=== PATIENT | female | born 1950 | race Caucasian/White ===

== ENCOUNTER 2016-05-26 21:26 | Emergency (ER) | payer OTHER ==
[2016-05-26] MEDS ORDERED: SODIUM CHLORIDE 0.9% 1,000 ML IV STA (21:41)
[2016-05-26] MEDS ORDERED: diphenhydrAMINE 50 MG/ML 1 ML VIAL IVP STA (21:41)
[2016-05-26] MEDS ORDERED: METOCLOPRAMIDE 5 MG/ML 2 ML VIAL IVP STA (21:41)
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
[2016-05-26 21:51] LABS: Basophils % (A) 0 %; CH 31.5; Eosinophils # (A) 0.1 k/uL (0-0.7); Eosinophils % (A) 2 %; HCT 37.1 % (34.0-46.0); HDW 2.62; HGB 12.5 gm/dL (11.4-16.0); Luc # (Auto) 0.13; Luc % (Auto) 2; Lymphocytes # (A) 2.5 k/uL (1.0-4.8); Lymphocytes % (A) 36 %; MCH 30.5 pg (25.0-35.0); MCHC 33.7 g/dL (31.0-37.0); MCV 90.6 fL (80.0-100.0); Mean Platelet Volume 7.2; Monocytes # (A) 0.3 k/uL (0-1.0); Monocytes % (A) 4 %; Neutrophils # (A) 3.9 k/uL (1.3-7.7); Neutrophils % (A) 56 %; RBC 4.09 m/uL (3.80-5.40); RDW 12.3 % (11.5-15.5); WBC 6.9 k/uL (3.8-10.6); WBC (Perox) 6.85
--- NOTE | 2016-05-26 22:00 | XR ---
EXAMINATION TYPE: XR chest 2V DATE OF EXAM: 05/26/2016 9:55 PM COMPARISON: 09/26/2014 HISTORY: Nausea and vomiting TECHNIQUE: Frontal and lateral views of the chest are obtained. FINDINGS: There is no heart failure nor confluent pneumonic infiltrate. There are no hilar masses. C ostophrenic angles are clear. Bony thorax is intact. IMPRESSION: No active cardiopulmonary disease. No change.
[2016-05-26 22:02] LABS: ALT 42 U/L (9-52); AST 40 U/L (14-36); Alkaline Phosphatase 99 U/L (38-126); Amylase 34 U/L (30-110); Anion Gap 18 mmol/L; Blood Urea Nitrogen 12 mg/dL (7-17); Calcium 9.7 mg/dL (8.4-10.2); Carbon Dioxide 18 mmol/L (22-30); Chloride 99 mmol/L (98-107); Glucose 170 mg/dL (74-99); Non-African American GFR(MDRD) >60 (>60 ml/min/1.73 sqM); Potassium 4.6 mmol/L (3.5-5.1); Sodium 135 mmol/L (137-145); Total Bilirubin 0.6 mg/dL (0.2-1.3)
--- NOTE | 2016-05-26 22:04 | XR ---
EXAMINATION TYPE: XR KUB DATE OF EXAM: 05/26/2016 9:58 PM COMPARISON: NONE HISTORY: Abdominal pain TECHNIQUE: 2 views FINDINGS: Bowel gas pattern is normal. There is no sign of intestinal obstruction or pneumoperitoneum . Fecal pattern is normal. There is no sign of a mass. There are numerous phleboliths in the pelvis. There are no pathologic calcifications over the kidneys. IMPRESSION: Nonacute abdomen.
[2016-05-26] MEDS ORDERED: MORPHINE SULFATE 2 MG/ML SYRINGE IVP ONE (22:24)
[2016-05-26 22:44] LABS: Creatine Kinase 58 U/L (30-135)
[2016-05-26 22:57] LABS: Creatine Kinase MB 0.4 ng/mL (0.0-2.4); Troponin I <0.012 ng/mL (0.000-0.034)
[2016-05-26] MEDS ORDERED: MAGNESIUM OXIDE 400 MG TAB PO STA (23:38)
[2016-05-26 23:56] VITALS: BP 169/80; PULSE 72; RESP 16; TEMP 98.2
== END 2016-05-27 00:03 | disposition home or self-care (01) ==
LOC: EC 21:26
DX: R11.10 Vomiting, unspecified (principal); R10.9 Unspecified abdominal pain; E11.9 Type 2 diabetes mellitus without complications; I10 Essential (primary) hypertension; K21.9 Gastro-esophageal reflux disease without esophagitis; F41.9 Anxiety disorder, unspecified; F32.9 Major depressive disorder, single episode, unspecified; Z88.5 Allergy status to narcotic agent; Z87.891 Personal history of nicotine dependence; Z88.0 Allergy status to penicillin; Z91.040 Latex allergy status; Z79.899 Other long term (current) drug therapy; Z79.1 Long term (current) use of non-steroidal anti-inflammatories (NSAID); Z79.84 Long term (current) use of oral hypoglycemic drugs
CPT/HCPCS: 99285; 96374; 96375 ×2; 96361; 36415; 93005; 80053; 82150; 82550; 82553; 83690; 83735; 84484; 85025; 71020; 74000; J1200; J2765; J2270

== ENCOUNTER 2016-10-08 00:49 | Emergency (ER) | payer OTHER ==
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
[2016-10-08 09:05] VITALS: BP 127/69; PULSE 86; RESP 16; TEMP 97.1
== END 2016-10-08 09:32 | disposition home or self-care (01) ==
LOC: EC 00:49
DX: F10.129 Alcohol abuse with intoxication, unspecified (principal); F43.21 Adjustment disorder with depressed mood; E11.9 Type 2 diabetes mellitus without complications; I10 Essential (primary) hypertension; K21.9 Gastro-esophageal reflux disease without esophagitis; M19.90 Unspecified osteoarthritis, unspecified site; F41.9 Anxiety disorder, unspecified; Z87.891 Personal history of nicotine dependence; Z88.5 Allergy status to narcotic agent; Z91.040 Latex allergy status; Z88.0 Allergy status to penicillin; Z79.1 Long term (current) use of non-steroidal anti-inflammatories (NSAID); Z79.84 Long term (current) use of oral hypoglycemic drugs; Z79.899 Other long term (current) drug therapy
CPT/HCPCS: 80306; 82075; 99285

== ENCOUNTER 2017-02-15 05:48 | Day surgery (SDC) | payer OTHER ==
[2017-02-13 11:59] VITALS: BMI 43.9
[~2017-02-15 05:48] MED LIST: CLINDAMYCIN 900 MG in DEXTROSE 5% IN WATER 50 ML IVPB ONE
[2017-02-15] MEDS ORDERED: MIDAZOLAM 2 MG/2 ML VIAL IV PRN (06:16)
[2017-02-15] MEDS ORDERED: DEXAMETHASONE SOD PHOSPHATE 10 MG/ML 1 ML VIAL IV ONE (06:16)
[2017-02-15] MEDS ORDERED: LIDOCAINE 1% 20 ML VIAL (10MG/ML) FOR IV START INTRADERMA PRN (06:16)
[2017-02-15] MEDS ORDERED: HYDROmorphone 1 MG/ML 1 ML SYRINGE IVP PRN (06:16)
[2017-02-15] MEDS ORDERED: ONDANSETRON 4 MG/2 ML VIAL IVP ONE (06:16)
[2017-02-15] MEDS ORDERED: SCOPOLAMINE 1.5MG/72HR PATCH TRANSDERM ONE (06:16)
[2017-02-15 06:59] LABS: Glucose,Whole Blood 149 mg/dL (75-99)
[2017-02-15] MEDS: LACTATED RINGERS 1,000 ML IV SCH ×2 (07:02→20:17)
[2017-02-15] MEDS ORDERED: EPINEPHrine 1 MG/ML 1 ML AMP SQ ONE (07:48)
[2017-02-15] MEDS ORDERED: ONDANSETRON ODT 4 MG TAB PO PRN (07:56)
--- NOTE | 2017-02-15 07:58 | P.HPOB ---
History of Present Illness H&P Date: 02/15/17 Chief Complaint: Rectocele Tena is a 66 female who has a grade 2-3 rectocele requiring repair. Risks/ benefits/alternatives to this procedure were discussed with patient in detail and all questions were answered for her prior to proceeding to the operating room. She does have a small cystocele we'll fully evaluate this in the operating room is possible she will have a cystocele repair as well but if it is minimal then we will not plan to do cystocele repair. On physical exam vital signs are currently stable and afebrile. Heart regular, lungs clear, extremities without pain. Osteopathic exams unremarkable. Abdomen soft positive bowel sounds are noted. Assessment rectocele. Plan posterior repair possible anterior repair will have Dr. Ravi see her in the hospital control her medical issues as she has multiple medical problems including diabetes and hypertension./Benefits/alternatives to this were discussed with patient in detail and all questions are answered for her prior to proceeding to the operating room. Past Medical History Past Medical History: Asthma, Chest Pain / Angina, Diabetes Mellitus, GERD/ Reflux, Hypertension, Osteoarthritis (OA), Rheumatoid Arthritis (RA) Additional Past Medical History / Comment(s): DDD, HEMORRHOIDS,HIATAL HERNIA, IBS, POOR CIRCULATION, RLS, hx migraines, ulcer, hiatal hernia, UTI's History of Any Multi-Drug Resistant Organisms: ESBL Date of last positivie culture/infection: 09/12/15 MDRO Source:: urine e. coli Past Surgical History: Hysterectomy, Orthopedic Surgery, Tubal Ligation Additional Past Surgical History / Comment(s): surgery rt knee cap Past Anesthesia/Blood Transfusion Reactions: Motion Sickness Additional Past Anesthesia/Blood Transfusion Reaction / Comment(s): CLAUSTROPHOBIA Smoking Status: Former smoker - Past Family History Father Family Medical History: Diabetes Mellitus Mother Family Medical History: GERD/Reflux Additional Family Medical History / Comment(s): FEMALE CANCER Sister(s) Family Medical History: Cancer Medications and Allergies Home Medications Medication Instructions Recorded Confirmed Type glipiZIDE [Glucotrol XL] 5 mg PO DAILY 09/21/14 02/15/17 History Oxybutynin Chloride [Ditropan] 5 mg PO BID 09/23/14 02/15/17 History diphenhydrAMINE [Benadryl] 25 mg PO HS PRN 09/23/14 02/15/17 History metFORMIN HCL 1,000 mg PO BID 09/23/14 02/15/17 History ALPRAZolam [Xanax] 1 mg PO TID 02/13/17 02/15/17 History Cetirizine HCl [Zyrtec] 10 mg PO DAILY 02/13/17 02/15/17 History FLUoxetine HCL [PROzac] 20 mg PO HS 02/13/17 02/15/17 History Famotidine [Pepcid] 40 mg PO HS 02/13/17 02/15/17 History Hydrocodone/Acetaminophen [[place] 1 tab PO Q6HR PRN 02/13/17 02/15/17 History 5-325] Losartan Potassium 50 mg PO QAM 02/13/17 02/15/17 History Multivitamins, Thera [Multivitamin 1 tab PO DAILY 02/13/17 02/15/17 History (formulary)] Ondansetron Odt [Zofran ODT] 4 mg PO QID PRN 02/13/17 02/15/17 History Pantoprazole [Protonix] 40 mg PO QAM 02/13/17 02/15/17 History Sucralfate [Carafate] 1 gm PO HS 02/13/17 02/15/17 History Allergies Allergy/AdvReac Type Severity Reaction Status Date / Time codeine Allergy Nausea & Verified 02/13/17 11:41 Vomiting Iodinated Contrast- Oral and Allergy Unknown Verified 02/15/17 06:26 IV Dye latex Allergy Rash/Hives Verified 02/13/17 11:41 Penicillins Allergy Anaphylaxis Verified 02/13/17 11:41 Exam Osteopathic Statement: *. No significant issues noted on an osteopathic structural exam other than those noted in the History and Physical/Consult. - Vital Signs Vital signs: Vital Signs Temp Pulse Resp BP Pulse Ox 02/15/17 06:31 98.6 F 85 16 136/93 96 Results Abnormal Lab Results - Last 24 Hours (Table) 02/15/17 Range/Units 06:47 POC Glucose (mg/dL) 149 H (75-99) mg/dL
[2017-02-15] MEDS ORDERED: PHENYLEPHRINE-0.9% NACL SYG 1 MG/10 ML SYRINGE ONE (08:02)
[2017-02-15] MEDS ORDERED: HYDROmorphone (PF) 1 MG/ML ONE (08:02)
[2017-02-15] MEDS ORDERED: LIDOCAINE 1% INJ 10MG/ML (20 ML MDV) ONE (08:02)
[2017-02-15] MEDS ORDERED: MIDAZOLAM 2 MG/2 ML VIAL ONE (08:02)
[2017-02-15] MEDS ORDERED: SUCCINYLCHOLINE CHLORIDE 100 MG/5 ML SYR IV ONE (08:02)
[2017-02-15] MEDS ORDERED: fentaNYL (PF) 50 MCG/ML 2 ML AMP ONE (08:02)
[2017-02-15] MEDS ORDERED: PROPOFOL 10 MG/ML 20 ML VIAL IV ONE (08:02)
[2017-02-15] MEDS ORDERED: BACITRACIN 500 UNIT/GM OINT 28.4 GM TUBE TOPICAL ONE (08:49)
[2017-02-15] MEDS ORDERED: SIMETHICONE 80 MG CHEWABLE PO PRN (08:51)
[2017-02-15] MEDS ORDERED: KETOROLAC 30 MG/ML 1 ML VIAL IVP PRN (08:51)
[2017-02-15] MEDS ORDERED: LACTATED RINGERS 1,000 ML IV ONE (08:55)
--- NOTE | 2017-02-15 09:00 | P.OP ---
Date of Procedure: 02/15/17 Preoperative Diagnosis: Rectocele lichen sclerosis Postoperative Diagnosis: Same Procedure(s) Performed: Posterior repair with vulvar biopsy at 11:00 Anesthesia: RAJAN Surgeon: Lukas Sierra Claims Analyst #1: Tami Antonio Estimated Blood Loss (ml): 10 IV fluids (ml): 500 Urine output (ml): 200 Pathology: other (Biopsies of vulva) Condition: stable Disposition: observation Operative Findings: Grade 3 rectocele mild grade 1 cystocele but she does have significant leaking therefore she would need urology consultation for a repair to be affected in this area. She did not want to do this prior to the surgery. Description of Procedure: Was taken to the operating suite where a general anesthetic was found be adequate. She was prepped and draped and placed in the dorsal lithotomy position. Initially a speculum was inserted upside down in the vagina so that the rectocele could be identified. 2 Allis clamps and use grasped posterior fourchette of the vagina and a dilute epinephrine solution was injected through this area and up into the rectocele to help maintain hemostasis. This was also done to create a. Once this was accomplished knife was used to excise the posterior part of the vagina and incised upwards into the rectocele. Metzenbaum scissors were then used to undermine the tissues of the rectocele incising it up to the apex of the rectocele. Allis clamps were then used to delineate the boundaries of the rectocele. Once this was accomplished blunt and sharp dissection of the rectocele as far laterally as was possible was then made. Once this was accomplished approximately 10 Jill plication sutures were placed to bring the rectocele tissues together and close off the space. Once repair was completed excess vaginal mucosa was excised and 0 Vicryl suture was used to close the incision in a running locking fashion. Once this was completed there was an area of lichen sclerosis change at 11:00 which was absent using a [place] punch biopsy following injection of local anesthetic. One 4-0 Vicryl suture was placed to close this incision. Vagina was then packed with iodoform gauze and Perera catheter was placed. Patient tolerated surgery very well sponge, lap, needle counts were all correct 2. Patient was taken to the recovery room in stable and satisfactory condition.
[2017-02-15 12:21] LABS: Glucose,Whole Blood 224 mg/dL (75-99)
[2017-02-15] MEDS: PANTOPRAZOLE 40 MG TABLET PO SCH (13:13)
[2017-02-15] MEDS: LOSARTAN 50 MG TAB PO SCH (13:13)
[2017-02-15] MEDS: LORATADINE 10 MG TAB PO SCH (13:24)
[2017-02-15] MEDS: SENNOSIDES-DOCUSATE SODIUM 1 EACH TAB PO SCH ×2 (13:24→20:16)
[2017-02-15] MEDS: OXYBUTYNIN CHLORIDE 5 MG TAB PO SCH ×2 (13:24→20:16)
[2017-02-15] MEDS: metFORMIN 500 MG TAB PO SCH ×2 (13:24→16:57)
[2017-02-15] MEDS: ALPRAZolam 0.5 MG TAB PO SCH ×2 (16:26→22:24)
[2017-02-15 17:21] LABS: Glucose,Whole Blood 245 mg/dL (75-99)
[2017-02-15] MEDS: HYDROcodone/APAP 5-325MG 1 EACH TAB PO PRN (20:13)
[2017-02-15] MEDS ORDERED: FAMOTIDINE 20 MG TAB PO SCH (21:00)
[2017-02-15] MEDS ORDERED: FLUoxetine HCL 20 MG CAP PO SCH (21:00)
[2017-02-15] MEDS ORDERED: SUCRALFATE 1 GM TAB PO SCH (21:00)
[2017-02-15 21:08] LABS: Glucose,Whole Blood 276 mg/dL (75-99)
[2017-02-16] MEDS ORDERED: diphenhydrAMINE 25 MG CAP PO PRN (07:47)
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
[2017-02-16 08:53] LABS: Glucose,Whole Blood 280 mg/dL (75-99)
[2017-02-16] MEDS: metFORMIN 500 MG TAB PO SCH ×2 (08:53→17:40)
[2017-02-16] MEDS: HYDROcodone/APAP 5-325MG 1 EACH TAB PO PRN ×2 (09:07→14:51)
[2017-02-16] MEDS: OXYBUTYNIN CHLORIDE 5 MG TAB PO SCH (09:55)
[2017-02-16] MEDS: LOSARTAN 50 MG TAB PO SCH (09:55)
[2017-02-16] MEDS: LORATADINE 10 MG TAB PO SCH (09:55)
[2017-02-16] MEDS: ALPRAZolam 0.5 MG TAB PO SCH ×2 (09:59→16:35)
[2017-02-16] MEDS: PANTOPRAZOLE 40 MG TABLET PO SCH (10:00)
[2017-02-16] MEDS: SENNOSIDES-DOCUSATE SODIUM 1 EACH TAB PO SCH (10:00)
[2017-02-16] MEDS ORDERED: MULTIVITAMINS, THERA 1 EACH TAB PO SCH (12:00)
[2017-02-16 13:46] LABS: Glucose,Whole Blood 202 mg/dL (75-99)
[2017-02-16] MEDS: INSULIN ASPART 100 UNIT/ML 1 ML 10 ML VIAL SQ SCH ×2 (13:52→17:46)
[2017-02-16] MEDS ORDERED: IPRATROPIUM-ALBUTEROL 3 ML NEB INHALATION PRN (15:50)
--- NOTE | 2017-02-16 16:59 | P.DS ---
Providers Expected date of discharge: 02/16/17 Attending physician: Lukas Sierra Consults: 02/15/17 08:51 Consult Physician Routine Consulting Provider: Quincy Ravi Consult Reason/Comments: medical management Do you want consulting provider notified?: Yes Primary care physician: Quincy Ravi Hospital Course: She recently is doing very well postop day 1. I've evaluated her this morning and at noon and now finally this evening we'll plan to discharge her home this evening. She has some tiredness but she feels overall well she is using incentive spirometry and that seems to be helping she also has inhalers for her asthma. Blood sugars have been slightly elevated but that of been managed by the primary care provider who discomfort with her sugar levels and she will contact him should there be any ryes in those levels. Discharge instructions were thoroughly reviewed with the patient all questions are answered for her at this time. Her heart is regular her lungs are essentially clear with mild bibasilar crackles but she is breathing well and oxygenating well. Extremities are without pain. Abdomen soft nontender. Other than slight vaginal discharge she voices no complaints following surgery. Assessment postop day 1. Plan discharged home follow up with me in approximately 1-2 weeks. Patient Condition at Discharge: Good Plan - Discharge Summary Discharge Rx Participant: No New Discharge Prescriptions: No Action glipiZIDE [Glucotrol XL] 5 mg PO DAILY diphenhydrAMINE [Benadryl] 25 mg PO HS PRN PRN Reason: ALLERGIES Oxybutynin Chloride [Ditropan] 5 mg PO BID metFORMIN HCL 1,000 mg PO BID ALPRAZolam [Xanax] 1 mg PO TID Cetirizine HCl [Zyrtec] 10 mg PO DAILY Famotidine [Pepcid] 40 mg PO HS FLUoxetine HCL [PROzac] 20 mg PO HS Hydrocodone/Acetaminophen [[place] 5-325] 1 tab PO Q6HR PRN PRN Reason: Pain Losartan Potassium 50 mg PO QAM Pantoprazole [Protonix] 40 mg PO QAM Sucralfate [Carafate] 1 gm PO HS Ondansetron Odt [Zofran ODT] 4 mg PO QID PRN PRN Reason: Nausea Multivitamins, Thera [Multivitamin (formulary)] 1 tab PO DAILY Discharge Medication List glipiZIDE [Glucotrol XL] 5 mg PO DAILY 09/21/14 [History] Oxybutynin Chloride [Ditropan] 5 mg PO BID 09/23/14 [History] diphenhydrAMINE [Benadryl] 25 mg PO HS PRN 09/23/14 [History] metFORMIN HCL 1,000 mg PO BID 09/23/14 [History] ALPRAZolam [Xanax] 1 mg PO TID 02/13/17 [History] Cetirizine HCl [Zyrtec] 10 mg PO DAILY 02/13/17 [History] FLUoxetine HCL [PROzac] 20 mg PO HS 02/13/17 [History] Famotidine [Pepcid] 40 mg PO HS 02/13/17 [History] Hydrocodone/Acetaminophen [[place] 5-325] 1 tab PO Q6HR PRN 02/13/17 [History] Losartan Potassium 50 mg PO QAM 02/13/17 [History] Multivitamins, Thera [Multivitamin (formulary)] 1 tab PO DAILY 02/13/17 [History ] Ondansetron Odt [Zofran ODT] 4 mg PO QID PRN 02/13/17 [History] Pantoprazole [Protonix] 40 mg PO QAM 02/13/17 [History] Sucralfate [Carafate] 1 gm PO HS 02/13/17 [History] Follow up Appointment(s)/Referral(s): Lukas Sierra DO [Doctor of Osteopathic Medicine] - 03/05/17 9:00 am (You have an appointment with DR Sierra on 2016 at 9:00 am.) Patient Instructions/Handouts: How to Use an Incentive Spirometer (GEN), Non- pharmacological Pain Management Therapies for Adults (GEN), Pain Management After Surgery (GEN), Posterior Vaginal Repair (DC) Activity/Diet/Wound Care/Special Instructions: Good handwashing. Activity as tolerated, rest as needed. Drink plenty of fluids. No housework, no driving, no stooping or bending, no heavy lifting, not tubs or hot tubs. Nothing in the vagina. May shower. Call Dr Sierra if you develop a fever, increase in pain, bleeding from your vagina, difficulty in urinating or stooling, or if you have any other questions or concerns. Take you pain medication as prescribed. Be careful of falls while on pain medications. Discharge Disposition: HOME SELF-CARE
[2017-02-16 17:17] VITALS: BP 117/65; PULSE 65; RESP 16; TEMP 97.6
[2017-02-16 17:30] LABS: Glucose,Whole Blood 133 mg/dL (75-99)
== END 2017-02-16 18:22 | disposition home or self-care (01) ==
LOC: OR 05:48 → 6PED 09:04 → OR 02-16 18:22
PROVIDERS: ATTEND Obstetrics & Gynecology
DX: N81.6 Rectocele (principal); N90.4 Leukoplakia of vulva; L90.0 Lichen sclerosus et atrophicus; N81.10 Cystocele, unspecified; R53.83 Other fatigue; J45.909 Unspecified asthma, uncomplicated; E11.65 Type 2 diabetes mellitus with hyperglycemia; E11.51 Type 2 diabetes mellitus with diabetic peripheral angiopathy without gangrene; K21.9 Gastro-esophageal reflux disease without esophagitis; I10 Essential (primary) hypertension; M19.90 Unspecified osteoarthritis, unspecified site; M06.9 Rheumatoid arthritis, unspecified; K58.9 Irritable bowel syndrome, unspecified; Z98.51 Tubal ligation status; F41.9 Anxiety disorder, unspecified; F32.9 Major depressive disorder, single episode, unspecified; Z87.891 Personal history of nicotine dependence; Z88.1 Allergy status to other antibiotic agents; Z88.5 Allergy status to narcotic agent; Z88.0 Allergy status to penicillin; Z88.8 Allergy status to other drugs, medicaments and biological substances; Z91.041 Radiographic dye allergy status; Z91.040 Latex allergy status; Z79.84 Long term (current) use of oral hypoglycemic drugs; Z79.899 Other long term (current) drug therapy
CPT/HCPCS: 94640; 88305; 88302; 83036; 45560; 56605; J2250; J0171; J1100; J2405; J2001; J3010; J1885; J1170; J2370; J0330; J2704

== ENCOUNTER 2018-02-01 16:35 | Inpatient (IN) | payer MEDICARE, OTHER ==
--- NOTE | 2018-02-01 16:53 | ED ---
General Adult HPI - General Chief complaint: Altered Mental Status Stated complaint: Altered mental status Time Seen by Provider: 02/01/18 16:41 Source: patient, family, EMS, RN notes reviewed, old records reviewed Mode of arrival: EMS Limitations: no limitations - History of Present Illness Initial comments: 67-year-old female presents for evaluation of altered mental status and lethargy. Patient had recent hospital admission for pneumonia at an outside hospital. She was discharged on oral antibiotics. States that her respiratory symptoms had significantly improved. She was noted to be confused prior to arrival. This has resolved at the time my evaluation, she is alert and oriented 3. Denies significant pain complaints. Denies headache. She states she has been tired since her discharge with generalized weakness. She has been compliant with antibiotics. Denies fever. Denies chest pain. Denies worsening dyspnea. Denies abdominal pain nausea vomiting. - Related Data Home Medications Medication Instructions Recorded Confirmed glipiZIDE [Glucotrol XL] 5 mg PO DAILY 09/21/14 02/01/18 Oxybutynin Chloride [Ditropan] 5 mg PO BID 09/23/14 02/01/18 metFORMIN HCL 1,000 mg PO BID 09/23/14 02/01/18 ALPRAZolam [Xanax] 1 mg PO TID PRN 02/13/17 02/01/18 Cetirizine HCl [Zyrtec] 10 mg PO DAILY 02/13/17 02/01/18 FLUoxetine HCL [PROzac] 20 mg PO HS 02/13/17 02/01/18 Hydrocodone/Acetaminophen [[place] 1 tab PO Q6HR PRN 02/13/17 02/01/18 5-325] Losartan Potassium 50 mg PO DAILY 02/13/17 02/01/18 Pantoprazole [Protonix] 40 mg PO DAILY 02/13/17 02/01/18 Sucralfate [Carafate] 1 gm PO HS 02/13/17 02/01/18 Cefuroxime Axetil [Ceftin] 500 mg PO BID 02/01/18 02/01/18 Diltiazem HCl [Cartia Xt] 180 mg PO DAILY 02/01/18 02/01/18 Allergies Allergy/AdvReac Type Severity Reaction Status Date / Time codeine Allergy Nausea & Verified 02/01/18 16:57 Vomiting Iodinated Contrast- Oral and Allergy Unknown Verified 02/01/18 16:57 IV Dye latex Allergy Rash/Hives Verified 02/01/18 16:57 Penicillins Allergy Anaphylaxis Verified 02/01/18 16:57 Review of Systems ROS Statement: Those systems with pertinent positive or pertinent negative responses have been documented in the HPI. ROS Other: All systems not noted in ROS Statement are negative. Past Medical History Past Medical History: Asthma, Diabetes Mellitus, GERD/Reflux, Hypertension, Osteoarthritis (OA), Rheumatoid Arthritis (RA) Additional Past Medical History / Comment(s): DDD, HEMORRHOIDS,HIATAL HERNIA, IBS, POOR CIRCULATION, RLS History of Any Multi-Drug Resistant Organisms: ESBL Date of last positivie culture/infection: 09/12/15 MDRO Source:: urine e. coli Past Surgical History: Hysterectomy, Orthopedic Surgery, Tubal Ligation Additional Past Surgical History / Comment(s): RT KNEE CAP SX Past Anesthesia/Blood Transfusion Reactions: No Reported Reaction Additional Past Anesthesia/Blood Transfusion Reaction / Comment(s): CLAUSTERPHOBIA Past Psychological History: Anxiety, Depression Smoking Status: Never smoker Past Alcohol Use History: None Reported Past Drug Use History: None Reported - Past Family History Father Family Medical History: Diabetes Mellitus Mother Family Medical History: GERD/Reflux Additional Family Medical History / Comment(s): FEMALE CANCER Sister(s) Family Medical History: Cancer General Exam Limitations: no limitations General appearance: lethargic Head exam: Present: atraumatic, normocephalic Eye exam: Present: normal appearance, PERRL, EOMI ENT exam: Present: mucous membranes dry Neck exam: Present: normal inspection. Absent: tenderness, meningismus Respiratory exam: Present: decreased breath sounds. Absent: respiratory distress Cardiovascular Exam: Present: regular rate, normal rhythm GI/Abdominal exam: Present: soft. Absent: distended, tenderness Extremities exam: Present: normal inspection, full ROM Neurological exam: Present: alert, oriented X3. Absent: motor sensory deficit Psychiatric exam: Present: normal affect, normal mood Skin exam: Present: warm, dry, intact. Absent: cyanosis, diaphoretic Course Vital Signs 02/01/18 02/01/18 02/01/18 16:39 16:44 17:00 Temperature 97.9 F Pulse Rate 70 69 66 Respiratory 14 18 19 Rate Blood Pressure 134/86 134/86 O2 Sat by Pulse 92 L 92 L 95 Oximetry 10/26/18 10/26/18 10/26/18 17:30 18:00 18:30 Temperature Pulse Rate 68 67 70 Respiratory 10 L 23 18 Rate Blood Pressure 140/86 134/86 131/79 O2 Sat by Pulse 96 96 95 Oximetry 02/01/18 02/01/18 19:00 19:30 Temperature Pulse Rate 75 75 Respiratory 18 20 Rate Blood Pressure 138/94 155/100 O2 Sat by Pulse 95 Oximetry EKG Findings - EKG Comments: EKG Findings:: EKG: Normal sinus rhythm, ventricular rate 68, PA interval 140, QRS duration 82, QTC 455, no ST segment elevation or depression Medical Decision Making - Medical Decision Making 67-year-old female presenting with episode of confusion. Patient is alert and oriented at the time my evaluation, nonfocal neurologic exam. Workup in the emergency department reveals head CT which is negative for intracranial hemorrhage or mass effect, normal CBC, CMP does show elevated glucose and pseudohyponatremia 134, magnesium 1.5 which is replaced. Chest x-ray does show persistent right lower lobe pneumonia. Given the patient's persistent symptoms , she will be kept for intubated IV antibiotics and reevaluation. Diagnosis: Community acquired pneumonia - Lab Data Result diagrams: 02/01/18 17:13 02/01/18 17:13 Lab Results 02/01/18 02/01/18 02/01/18 Range/Units 17:13 17:13 17:13 WBC 8.9 (3.8-10.6) k/uL RBC 4.14 (3.80-5.40) m/uL Hgb 11.9 (11.4-16.0) gm/dL Hct 35.9 (34.0-46.0) % MCV 86.8 (80.0-100.0) fL MCH 28.7 (25.0-35.0) pg MCHC 33.0 (31.0-37.0) g/dL RDW 13.7 (11.5-15.5) % Plt Count 420 (150-450) k/uL Neutrophils % 59 % Lymphocytes % 35 % Monocytes % 4 % Eosinophils % 1 % Basophils % 0 % Neutrophils # 5.3 (1.3-7.7) k/uL Lymphocytes # 3.1 (1.0-4.8) k/uL Monocytes # 0.3 (0-1.0) k/uL Eosinophils # 0.1 (0-0.7) k/uL Basophils # 0.0 (0-0.2) k/uL PT (9.0-12.0) sec INR (<1.2) APTT (22.0-30.0) sec Sodium 134 L (137-145) mmol/L Potassium 3.8 (3.5-5.1) mmol/L Chloride 100 (98-107) mmol/L Carbon Dioxide 27 (22-30) mmol/L Anion Gap 7 mmol/L BUN 14 (7-17) mg/dL Creatinine 0.60 (0.52-1.04) mg/dL Est GFR (CKD-EPI)AfAm >90 (>60 ml/min/1.73 sqM) Est GFR (CKD-EPI)NonAf >90 (>60 ml/min/1.73 sqM) Glucose 287 H (74-99) mg/dL Plasma Lactic Acid Oziel (0.7-2.0) mmol/L Calcium 8.8 (8.4-10.2) mg/dL Magnesium 1.5 L (1.6-2.3) mg/dL Total Bilirubin 0.3 (0.2-1.3) mg/dL AST 66 H (14-36) U/L ALT 75 H (9-52) U/L Alkaline Phosphatase 83 (38-126) U/L Total Creatine Kinase 30 (30-135) U/L CK-MB (CK-2) 0.6 (0.0-2.4) ng/mL CK-MB (CK-2) Rel Index 2.0 Troponin I <0.012 (0.000-0.034) ng/mL Total Protein 6.0 L (6.3-8.2) g/dL Albumin 2.9 L (3.5-5.0) g/dL Urine Color Urine Appearance (Clear) Urine pH (5.0-8.0) Ur Specific [place] (1.001-1.035) Urine Protein (Negative) Urine Glucose (UA) (Negative) Urine Ketones (Negative) Urine Blood (Negative) Urine Nitrite (Negative) Urine Bilirubin (Negative) Urine Urobilinogen (<2.0) mg/dL Ur Leukocyte Esterase (Negative) Urine RBC (0-5) /hpf Urine WBC (0-5) /hpf Ur Squamous Epith Cells (0-4) /hpf Urine Bacteria (None) /hpf Hyaline Casts (0-2) /lpf Urine Mucus (None) /hpf 02/01/18 02/01/18 02/01/18 Range/Units 17:13 17:13 19:46 WBC (3.8-10.6) k/uL RBC (3.80-5.40) m/uL Hgb (11.4-16.0) gm/dL Hct (34.0-46.0) % MCV (80.0-100.0) fL MCH (25.0-35.0) pg MCHC (31.0-37.0) g/dL RDW (11.5-15.5) % Plt Count (150-450) k/uL Neutrophils % % Lymphocytes % % Monocytes % % Eosinophils % % Basophils % % Neutrophils # (1.3-7.7) k/uL Lymphocytes # (1.0-4.8) k/uL Monocytes # (0-1.0) k/uL Eosinophils # (0-0.7) k/uL Basophils # (0-0.2) k/uL PT 10.6 (9.0-12.0) sec INR 1.1 (<1.2) APTT 22.8 (22.0-30.0) sec Sodium (137-145) mmol/L Potassium (3.5-5.1) mmol/L Chloride (98-107) mmol/L Carbon Dioxide (22-30) mmol/L Anion Gap mmol/L BUN (7-17) mg/dL Creatinine (0.52-1.04) mg/dL Est GFR (CKD-EPI)AfAm (>60 ml/min/1.73 sqM) Est GFR (CKD-EPI)NonAf (>60 ml/min/1.73 sqM) Glucose (74-99) mg/dL Plasma Lactic Acid Oziel 2.0 (0.7-2.0) mmol/L Calcium (8.4-10.2) mg/dL Magnesium (1.6-2.3) mg/dL Total Bilirubin (0.2-1.3) mg/dL AST (14-36) U/L ALT (9-52) U/L Alkaline Phosphatase (38-126) U/L Total Creatine Kinase (30-135) U/L CK-MB (CK-2) (0.0-2.4) ng/mL CK-MB (CK-2) Rel Index Troponin I (0.000-0.034) ng/mL Total Protein (6.3-8.2) g/dL Albumin (3.5-5.0) g/dL Urine Color Yellow Urine Appearance Clear (Clear) Urine pH 5.5 (5.0-8.0) Ur Specific [place] 1.012 (1.001-1.035) Urine Protein Negative (Negative) Urine Glucose (UA) 2+ H (Negative) Urine Ketones Negative (Negative) Urine Blood Negative (Negative) Urine Nitrite Negative (Negative) Urine Bilirubin Negative (Negative) Urine Urobilinogen <2.0 (<2.0) mg/dL Ur Leukocyte Esterase Moderate H (Negative) Urine RBC 2 (0-5) /hpf Urine WBC 3 (0-5) /hpf Ur Squamous Epith Cells 1 (0-4) /hpf Urine Bacteria Rare H (None) /hpf Hyaline Casts 1 (0-2) /lpf Urine Mucus Rare H (None) /hpf Disposition Clinical Impression: Hypomagnesemia, Community acquired pneumonia Disposition: ADMITTED IP TO THIS [facility] Condition: Stable Is patient prescribed a controlled substance at d/c from ED?: No Referrals: Quincy Ravi MD [Primary Care Provider] - 1-2 days Decision to Admit Reason: Admit from EC Decision Date: 02/01/18 Decision Time: 20:14
[2018-02-01 17:46] LABS: Basophils % (A) 0 %; Eosinophils # (A) 0.1 k/uL (0-0.7); Eosinophils % (A) 1 %; HCT 35.9 % (34.0-46.0); HGB 11.9 gm/dL (11.4-16.0); Lymphocytes # (A) 3.1 k/uL (1.0-4.8); Lymphocytes % (A) 35 %; MCH 28.7 pg (25.0-35.0); MCV 86.8 fL (80.0-100.0); Mean Platelet Volume 6.6; Monocytes # (A) 0.3 k/uL (0-1.0); Monocytes % (A) 4 %; Neutrophils # (A) 5.3 k/uL (1.3-7.7); Neutrophils % (A) 59 %; Platelet Count 420 k/uL (150-450); RBC 4.14 m/uL (3.80-5.40); RDW 13.7 % (11.5-15.5); WBC 8.9 k/uL (3.8-10.6)
[2018-02-01 17:52] LABS: INR 1.1 (<1.2); Partial Thromboplastin Time 22.8 sec (22.0-30.0); Prothrombin Time 10.6 sec (9.0-12.0)
[2018-02-01 17:55] LABS: ALT 75 U/L (9-52); AST 66 U/L (14-36); Albumin 2.9 g/dL (3.5-5.0); Alkaline Phosphatase 83 U/L (38-126); Anion Gap 7 mmol/L; Blood Urea Nitrogen 14 mg/dL (7-17); Calcium 8.8 mg/dL (8.4-10.2); Carbon Dioxide 27 mmol/L (22-30); Chloride 100 mmol/L (98-107); Glucose 287 mg/dL (74-99); Magnesium 1.5 mg/dL (1.6-2.3); Potassium 3.8 mmol/L (3.5-5.1); Sodium 134 mmol/L (137-145); Total Bilirubin 0.3 mg/dL (0.2-1.3)
[2018-02-01 18:14] LABS: Creatine Kinase 30 U/L (30-135)
[2018-02-01 18:27] LABS: Creatine Kinase MB 0.6 ng/mL (0.0-2.4); Troponin I <0.012 ng/mL (0.000-0.034)
--- NOTE | 2018-02-01 18:39 | XR ---
EXAMINATION TYPE: XR chest 2V DATE OF EXAM: 02/01/2018 COMPARISON: 03/15/2017 HISTORY: Altered mental status TECHNIQUE: Frontal and lateral views of the chest are obtained. FINDINGS: There is some patchy infiltrate in the right lower lobe. Left lung is clear. Heart and med iastinum are normal. There are chest leads. Bony thorax is intact. IMPRESSION: There is new right lower lobe pneumonia compared to last exam. No heart failure.
[2018-02-01] MEDS ORDERED: MAGNESIUM SULFATE-D5W PMX 1 GM in DEXTROSE/WATER 1 100ML.BAG IVPB ONE (18:50)
--- NOTE | 2018-02-01 18:50 | CT ---
EXAMINATION TYPE: CT brain wo con DATE OF EXAM: 02/01/2018 COMPARISON: 12/12/2013 HISTORY: AMS CT DLP: 1135.4 mGycm Automated exposure control for dose reduction was used. FINDINGS: There is cerebral cortical atrophy. There is no mass effect nor midline shift. There is no sign of in tracranial hemorrhage. The calvarium is intact. IMPRESSION: NEGATIVE CT SCAN OF THE BRAIN. NO CHANGE COMPARED TO OLD EXAM. MILD ATROPHY.
[2018-02-01] MEDS ORDERED: LEVOFLOXACIN 500MG-D5W PMX 500 MG in DEXTROSE/WATER 1 100ML.BAG IVPB STA (18:51)
[2018-02-01 20:06] LABS: Appearance,Urine Clear (Clear); Bacteria,Urine Rare /hpf; Bilirubin,Urine Negative (Negative); Blood,Urine Negative (Negative); Color,Urine Yellow; Glucose,Urine (UA) 2+ (Negative); Hyaline Casts,Urine 1 /lpf (0-2); Ketones,Urine Negative (Negative); Leukocyte Esterase,Urine Moderate (Negative); Mucus,Urine Rare /hpf; Nitrite,Urine Negative (Negative); PH, Urine 5.5 (5.0-8.0); Protein,Urine Negative (Negative); RBC,Urine 2 /hpf (0-5); Specific Gravity,Urine 1.012 (1.001-1.035); Squamous Epithelial Cell,Urine 1 /hpf (0-4); Urobilinogen,Urine <2.0 mg/dL (<2.0); WBC,Urine 3 /hpf (0-5)
[2018-02-01] MEDS ORDERED: ACETAMINOPHEN TAB 325 MG TAB PO PRN (20:10)
[2018-02-01] MEDS ORDERED: NALOXONE 0.4 MG/ML 1 ML VIAL IV PRN (20:10)
[2018-02-01] MEDS: SODIUM CHLORIDE 0.9% 1,000 ML IV SCH (20:46)
[2018-02-01 21:25] LABS: Glucose,Whole Blood 289 mg/dL (75-99)
[2018-02-01] MEDS: HYDROcodone/APAP 5-325MG 1 EACH TAB PO PRN (23:02)
[2018-02-01] MEDS: ALPRAZolam 1 MG TAB PO PRN (23:03)
[2018-02-01] MEDS: OXYBUTYNIN CHLORIDE 5 MG TAB PO SCH (23:46)
[2018-02-01] MEDS: SUCRALFATE 1 GM TAB PO SCH (23:46)
[2018-02-01] MEDS: HEPARIN SODIUM,PORCINE 5,000 UNIT/ML 1 ML VIAL SQ SCH (23:46)
[2018-02-01] MEDS: metFORMIN 500 MG TAB PO SCH (23:46)
[2018-02-01] MEDS: FLUoxetine HCL 20 MG CAP PO SCH (23:46)
[2018-02-01] MEDS: INSULIN ASPART 100 UNIT/ML 1 ML 10 ML VIAL SQ SCH (23:47)
[2018-02-02 07:27] LABS: Glucose,Whole Blood 183 mg/dL (75-99)
[2018-02-02] MEDS: LORATADINE 10 MG TAB PO SCH (09:26)
[2018-02-02] MEDS: DILTIAZEM CD 180 MG CAP.ER.24H PO SCH (09:26)
[2018-02-02] MEDS: OXYBUTYNIN CHLORIDE 5 MG TAB PO SCH ×2 (09:26→21:32)
[2018-02-02] MEDS: LOSARTAN 50 MG TAB PO SCH (09:26)
[2018-02-02] MEDS: HEPARIN SODIUM,PORCINE 5,000 UNIT/ML 1 ML VIAL SQ SCH ×3 (09:26→23:48)
[2018-02-02] MEDS: PANTOPRAZOLE 40 MG TABLET PO SCH (09:26)
[2018-02-02] MEDS: HYDROcodone/APAP 5-325MG 1 EACH TAB PO PRN ×2 (09:26→23:53)
[2018-02-02] MEDS: metFORMIN 500 MG TAB PO SCH ×2 (09:26→21:32)
[2018-02-02] MEDS: SODIUM CHLORIDE 0.9% 1,000 ML IV SCH ×2 (09:27→21:32)
[2018-02-02] MEDS: INSULIN ASPART 100 UNIT/ML 1 ML 10 ML VIAL SQ SCH ×4 (09:27→21:32)
[2018-02-02 12:01] LABS: Glucose,Whole Blood 247 mg/dL (75-99)
[2018-02-02 12:29] LABS: Hemoglobin A1C 8.4 % (4.0-6.0)
[2018-02-02 16:56] LABS: Glucose,Whole Blood 234 mg/dL (75-99)
[2018-02-02] MEDS ORDERED: LEVOFLOXACIN 500MG-D5W PMX 500 MG in DEXTROSE/WATER 1 100ML.BAG IVPB SCH (20:00)
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
[2018-02-02 20:59] LABS: Glucose,Whole Blood 237 mg/dL (75-99)
[2018-02-02] MEDS: INSULIN DETEMIR 100 UNIT/ML 10 ML VIAL SQ SCH (21:31)
[2018-02-02] MEDS: FLUoxetine HCL 20 MG CAP PO SCH (21:31)
[2018-02-02] MEDS: SUCRALFATE 1 GM TAB PO SCH (21:32)
[2018-02-03 07:04] LABS: Glucose,Whole Blood 165 mg/dL (75-99)
[2018-02-03 08:12] LABS: Basophils % (A) 0 %; Eosinophils # (A) 0.4 k/uL (0-0.7); Eosinophils % (A) 5 %; HCT 32.3 % (34.0-46.0); HGB 10.6 gm/dL (11.4-16.0); Lymphocytes # (A) 3.2 k/uL (1.0-4.8); Lymphocytes % (A) 40 %; MCH 28.6 pg (25.0-35.0); MCHC 32.8 g/dL (31.0-37.0); MCV 87.3 fL (80.0-100.0); Mean Platelet Volume 6.6; Monocytes # (A) 0.3 k/uL (0-1.0); Monocytes % (A) 3 %; Neutrophils # (A) 4.1 k/uL (1.3-7.7); Neutrophils % (A) 52 %; Platelet Count 346 k/uL (150-450); RBC 3.71 m/uL (3.80-5.40); RDW 13.7 % (11.5-15.5)
[2018-02-03 08:18] LABS: ALT 53 U/L (9-52); AST 27 U/L (14-36); Albumin 2.6 g/dL (3.5-5.0); Alkaline Phosphatase 80 U/L (38-126); Anion Gap 6 mmol/L; Blood Urea Nitrogen 8 mg/dL (7-17); Calcium 8.5 mg/dL (8.4-10.2); Carbon Dioxide 27 mmol/L (22-30); Chloride 105 mmol/L (98-107); Glucose 177 mg/dL (74-99); Potassium 3.9 mmol/L (3.5-5.1); Sodium 138 mmol/L (137-145); Total Bilirubin 0.3 mg/dL (0.2-1.3); Total Protein 5.4 g/dL (6.3-8.2)
[2018-02-03] MEDS: DILTIAZEM CD 180 MG CAP.ER.24H PO SCH (09:20)
[2018-02-03] MEDS: LORATADINE 10 MG TAB PO SCH (09:20)
[2018-02-03] MEDS: HEPARIN SODIUM,PORCINE 5,000 UNIT/ML 1 ML VIAL SQ SCH ×2 (09:20→16:35)
[2018-02-03] MEDS: LOSARTAN 50 MG TAB PO SCH (09:21)
[2018-02-03] MEDS: metFORMIN 500 MG TAB PO SCH ×2 (09:21→21:34)
[2018-02-03] MEDS: PANTOPRAZOLE 40 MG TABLET PO SCH (09:21)
[2018-02-03] MEDS: OXYBUTYNIN CHLORIDE 5 MG TAB PO SCH ×2 (09:21→21:35)
[2018-02-03] MEDS: INSULIN ASPART 100 UNIT/ML 1 ML 10 ML VIAL SQ SCH ×4 (09:21→21:37)
[2018-02-03] MEDS: ALPRAZolam 1 MG TAB PO PRN ×3 (09:31→21:33)
[2018-02-03] MEDS: HYDROcodone/APAP 5-325MG 1 EACH TAB PO PRN ×2 (09:31→21:32)
[2018-02-03] MEDS: ALBUTEROL NEBULIZED 2.5 MG/3 ML INHALATION PRN ×2 (11:23→19:15)
[2018-02-03 11:56] LABS: Glucose,Whole Blood 237 mg/dL (75-99)
[2018-02-03] MEDS: SODIUM CHLORIDE 0.9% 1,000 ML IV SCH (12:56)
[2018-02-03 17:11] LABS: Glucose,Whole Blood 117 mg/dL (75-99)
[2018-02-03 21:05] LABS: Glucose,Whole Blood 205 mg/dL (75-99)
[2018-02-03] MEDS: FLUoxetine HCL 20 MG CAP PO SCH (21:34)
[2018-02-03] MEDS: SUCRALFATE 1 GM TAB PO SCH (21:34)
[2018-02-03] MEDS: INSULIN DETEMIR 100 UNIT/ML 10 ML VIAL SQ SCH (21:35)
[2018-02-03] MEDS: LEVOFLOXACIN 500 MG TAB PO SCH (21:35)
--- NOTE | 2018-02-03 22:47 | P.PN ---
Subjective Progress Note Date: 02/03/18 Principal diagnosis: Pneumonia Patient is a 67-year-old female with a known history of with a known history of asthma, hypertension, osteoarthritis and rheumatoid arthritis presents to ER with altered mental status and lethargy. Patient had recent hospital admission for pneumonia at outside hospital facility. She was also treated with steroids and antibiotics. A sánchez says that her sugars were high at the time. Patient was sent home on antibiotic and the form of Ceftin. Patient was having worsening symptoms last couple of days which made her to come to Hospital. patient was noted to be confused on arrival to ER. Currently patient alert oriented x3 but lethargic. Denied any fever or chills at home. No headache and dizziness or lightheadedness. No chest pain. Denied any nausea vomiting or abdominal pain. No diarrhea. CT head is negative. No changes from prior study. Mild atrophy Chest x-ray showed new right lower lobe pneumonia. WBC 8.9 CBG 287 A1c 8.4 Albumin 2.4 02/03/2018 Patient's breathing status is improving slowly. No complaints of chest pain or worsening shortness of breath. No fever no chills. Tolerating oral diet and IV fluids will be discontinued. No fever no chills. No other acute overnight issues. Blood sugar is fairly controlled. Current medications reviewed Objective - Vital Signs Vital signs: Vital Signs Temp 97.4 F L 02/03/18 14:56 Pulse 69 02/03/18 14:56 Resp 16 02/03/18 15:38 BP 154/98 02/03/18 14:56 Pulse Ox 97 02/03/18 14:56 Intake & Output 02/02/18 02/03/18 02/03/18 18:59 06:59 18:59 Intake Total 600 1200 Balance 600 1200 Intake: Oral 600 1200 Other: # Voids 1 1 3 - Exam PHYSICAL EXAMINATION: Patient is lying in the bed comfortably, no acute distress, awake alert and oriented.. HEENT: Normocephalic. Neck is supple. Pupils reactive. Nostrils clear. Oral cavity is moist. Ears reveal no drainage. Neck reveals no JVD, carotid bruits, or thyromegaly. CHEST EXAMINATION: Trachea is central. Symmetrical expansion. Basilar crackles present. No wheezing no rhonchi. CARDIAC: Normal S1, S2 with no gallops. No murmurs ABDOMEN: Soft. Bowel sounds normal. No organomegaly. No abdominal bruits. Extremities: reveal no edema. No clubbing or cyanosis Neurologically awake, alert, oriented x3 with well-coordinated movements. No focal deficits noted Skin: No rash or skin lesions. Psychiatric: Coperative. Nonsuicidal Musculoskeletal: No joint swelling or deformity. Normal range of motion. - Labs CBC & Chem 7: 02/03/18 07:28 02/03/18 07:28 Labs: Abnormal Lab Results - Last 24 Hours (Table) 02/02/18 02/02/18 02/03/18 Range/Units 16:51 20:52 06:56 RBC (3.80-5.40) m/uL Hgb (11.4-16.0) gm/dL Hct (34.0-46.0) % Glucose (74-99) mg/dL POC Glucose (mg/dL) 234 H 237 H 165 H (75-99) mg/dL ALT (9-52) U/L Total Protein (6.3-8.2) g/dL Albumin (3.5-5.0) g/dL 02/03/18 02/03/18 02/03/18 Range/Units 07:28 07:28 11:53 RBC 3.71 L (3.80-5.40) m/uL Hgb 10.6 L (11.4-16.0) gm/dL Hct 32.3 L (34.0-46.0) % Glucose 177 H (74-99) mg/dL POC Glucose (mg/dL) 237 H (75-99) mg/dL ALT 53 H (9-52) U/L Total Protein 5.4 L (6.3-8.2) g/dL Albumin 2.6 L (3.5-5.0) g/dL Microbiology - Last 24 Hours (Table) 02/01/18 17:13 Blood Culture - Preliminary Blood No Growth after 24 hours Assessment and Plan Assessment: Right lower lobe pneumonia. Failed outpatient therapy. Improving clinically. Hyperglycemia with uncontrolled diabetes type 2 his B A1c 8.4 Hypomagnesemia Diabetes type 2 [id number] Asthma Hypertension Osteoarthritis History of rheumatoid arthritis History of ESBL urinary tract infection Hiatal hernia Anxiety and depression Morbid obesity BMI 44.6 DVT prophylaxis Plan: Patient will be continued on antibiotics the form of Levaquin. Continue with the breathing treatments and insulin sliding scale along with her home blood sugar medications. Continue with home medications and follow closely. Replaced magnesium. Further recommendations based on the clinical course. Prognosis is guarded with multiple medical problems and comorbid conditions. Time with Patient: Greater than 30
[2018-02-04] MEDS: HEPARIN SODIUM,PORCINE 5,000 UNIT/ML 1 ML VIAL SQ SCH ×3 (00:53→16:54)
[2018-02-04] MEDS: ALBUTEROL NEBULIZED 2.5 MG/3 ML INHALATION PRN ×3 (07:10→19:27)
[2018-02-04 07:35] LABS: Glucose,Whole Blood 179 mg/dL (75-99)
--- NOTE | 2018-02-04 07:57 | P.PN ---
Subjective Progress Note Date: 02/04/18 Principal diagnosis: Pneumonia. This is a 67-year-old white female essentially admitted for pneumonia. She was recently discharged I think last week from [facility]. She had pneumonia there. She was stable on discharge and states that she does not remember what happened the day after she was discharged. The patient states that her family is stating that she was having altered mental status. She has significant weakness at this time. Although, I did see her ambulate to the bathroom appropriately. She states worsening fatigue since being discharged. No history of secondhand smoke stated. Objective - Vital Signs Vital signs: Vital Signs Temp 98.1 F 02/04/18 07:00 Pulse 76 02/04/18 07:26 Resp 18 02/04/18 07:00 BP 152/87 02/04/18 07:00 Pulse Ox 96 02/04/18 07:13 Intake & Output 02/03/18 02/04/18 02/04/18 18:59 06:59 18:59 Intake Total 1200 1000 Balance 1200 1000 Intake: Oral 1200 1000 Other: # Voids 3 2 # Bowel Movements 0 - Constitutional General appearance: Present: obese - EENT Eyes: Absent: abnormal pupil - Neck Neck: Absent: lymphadenopathy - Respiratory Respiratory: right: rhonchi - Cardiovascular Rhythm: regular Heart sounds: normal: S1, S2 Abnormal Heart Sounds: Absent: S3 Gallop - Gastrointestinal General gastrointestinal: Present: soft. Absent: tenderness - Neurologic Neurologic: Present: CNII-XII intact. Absent: focal deficits - Musculoskeletal Musculoskeletal: Present: generalized weakness - Psychiatric Psychiatric: Present: A&O x's 3 - Labs CBC & Chem 7: 02/03/18 07:28 02/03/18 07:28 Labs: Abnormal Lab Results - Last 24 Hours (Table) 02/03/18 02/03/18 02/03/18 Range/Units 07:28 07:28 11:53 RBC 3.71 L (3.80-5.40) m/uL Hgb 10.6 L (11.4-16.0) gm/dL Hct 32.3 L (34.0-46.0) % Glucose 177 H (74-99) mg/dL POC Glucose (mg/dL) 237 H (75-99) mg/dL ALT 53 H (9-52) U/L Total Protein 5.4 L (6.3-8.2) g/dL Albumin 2.6 L (3.5-5.0) g/dL 02/03/18 02/03/18 02/04/18 Range/Units 17:08 20:34 07:12 RBC (3.80-5.40) m/uL Hgb (11.4-16.0) gm/dL Hct (34.0-46.0) % Glucose (74-99) mg/dL POC Glucose (mg/dL) 117 H 205 H 179 H (75-99) mg/dL ALT (9-52) U/L Total Protein (6.3-8.2) g/dL Albumin (3.5-5.0) g/dL Microbiology - Last 24 Hours (Table) 02/01/18 17:13 Blood Culture - Preliminary Blood No Growth after 48 hours Assessment and Plan (1) Community acquired pneumonia Current Visit: Yes Status: Acute Code(s): J18.9 - PNEUMONIA, UNSPECIFIED ORGANISM SNOMED Code(s): 279699904 (2) Angiopathy, diabetic Current Visit: No Status: Acute Code(s): E11.51 - TYPE 2 DIABETES W DIABETIC PERIPHERAL ANGIOPATH W/O GANGRENE SNOMED Code(s): 505082927 (3) Asthma Current Visit: No Status: Acute Code(s): J45.909 - UNSPECIFIED ASTHMA, UNCOMPLICATED SNOMED Code(s): 590672823 (4) Diabetes Current Visit: No Status: Acute Code(s): E11.9 - TYPE 2 DIABETES MELLITUS WITHOUT COMPLICATIONS SNOMED Code(s): 67671029 (5) GERD (gastroesophageal reflux disease) Current Visit: No Status: Acute Code(s): K21.9 - GASTRO-ESOPHAGEAL REFLUX DISEASE WITHOUT ESOPHAGITIS SNOMED Code(s): 355001789 (6) Weakness Current Visit: No Status: Acute Code(s): R53.1 - WEAKNESS SNOMED Code(s): 12310760 Plan: Continue current regimen of treatment. Check CBC and CMP in a.m. If no better, consider pulmonology consult. See orders otherwise. Time with Patient: Less than 30
[2018-02-04] MEDS: PANTOPRAZOLE 40 MG TABLET PO SCH (08:19)
[2018-02-04] MEDS: OXYBUTYNIN CHLORIDE 5 MG TAB PO SCH ×2 (08:19→21:26)
[2018-02-04] MEDS: metFORMIN 500 MG TAB PO SCH ×2 (08:19→21:26)
[2018-02-04] MEDS: LOSARTAN 50 MG TAB PO SCH (08:20)
[2018-02-04] MEDS: LORATADINE 10 MG TAB PO SCH (08:20)
[2018-02-04] MEDS: DILTIAZEM CD 180 MG CAP.ER.24H PO SCH (08:20)
[2018-02-04] MEDS: HYDROcodone/APAP 5-325MG 1 EACH TAB PO PRN ×2 (08:41→21:39)
[2018-02-04] MEDS: methylPREDNISolone SOD SUCCI 40 MG/ML 1 ML VIAL IV SCH ×2 (08:41→16:52)
[2018-02-04] MEDS: INSULIN ASPART 100 UNIT/ML 1 ML 10 ML VIAL SQ SCH ×4 (08:41→21:44)
[2018-02-04] MEDS: ALPRAZolam 1 MG TAB PO PRN (08:42)
[2018-02-04 12:44] LABS: Glucose,Whole Blood 292 mg/dL (75-99)
[2018-02-04 17:39] LABS: Glucose,Whole Blood 291 mg/dL (75-99)
[2018-02-04 20:22] LABS: Glucose,Whole Blood 379 mg/dL (75-99)
[2018-02-04] MEDS: FLUoxetine HCL 20 MG CAP PO SCH (21:26)
[2018-02-04] MEDS: LEVOFLOXACIN 500 MG TAB PO SCH (21:26)
[2018-02-04] MEDS: SUCRALFATE 1 GM TAB PO SCH (21:26)
[2018-02-04] MEDS: INSULIN DETEMIR 100 UNIT/ML 10 ML VIAL SQ SCH (21:43)
[2018-02-05] MEDS: HEPARIN SODIUM,PORCINE 5,000 UNIT/ML 1 ML VIAL SQ SCH ×3 (00:14→16:50)
[2018-02-05] MEDS: methylPREDNISolone SOD SUCCI 40 MG/ML 1 ML VIAL IV SCH ×3 (00:14→16:50)
[2018-02-05] MEDS: ALBUTEROL NEBULIZED 2.5 MG/3 ML INHALATION PRN ×2 (07:20→11:25)
[2018-02-05 07:30] LABS: Glucose,Whole Blood 263 mg/dL (75-99)
[2018-02-05] MEDS: INSULIN ASPART 100 UNIT/ML 1 ML 10 ML VIAL SQ SCH ×4 (07:40→20:56)
[2018-02-05] MEDS: PANTOPRAZOLE 40 MG TABLET PO SCH (07:41)
[2018-02-05] MEDS: OXYBUTYNIN CHLORIDE 5 MG TAB PO SCH ×2 (07:52→20:53)
[2018-02-05] MEDS: DILTIAZEM CD 180 MG CAP.ER.24H PO SCH (07:52)
[2018-02-05] MEDS: LORATADINE 10 MG TAB PO SCH (07:53)
[2018-02-05] MEDS: metFORMIN 500 MG TAB PO SCH ×2 (07:53→20:53)
[2018-02-05] MEDS: LOSARTAN 50 MG TAB PO SCH (07:53)
[2018-02-05] MEDS: ALPRAZolam 1 MG TAB PO PRN ×2 (07:56→17:14)
[2018-02-05 10:02] LABS: HCT 36.2 % (34.0-46.0); HGB 11.9 gm/dL (11.4-16.0); MCH 28.9 pg (25.0-35.0); MCHC 32.7 g/dL (31.0-37.0); MCV 88.2 fL (80.0-100.0); Mean Platelet Volume 7.2; Platelet Count 383 k/uL (150-450); RBC 4.11 m/uL (3.80-5.40); WBC 10.3 k/uL (3.8-10.6)
[2018-02-05 10:14] LABS: ALT 47 U/L (9-52); AST 24 U/L (14-36); Albumin 3.6 g/dL (3.5-5.0); Alkaline Phosphatase 104 U/L (38-126); Anion Gap 14 mmol/L; Blood Urea Nitrogen 14 mg/dL (7-17); Calcium 9.9 mg/dL (8.4-10.2); Carbon Dioxide 19 mmol/L (22-30); Chloride 101 mmol/L (98-107); Glucose 298 mg/dL (74-99); Potassium 4.4 mmol/L (3.5-5.1); Sodium 134 mmol/L (137-145); Total Bilirubin 0.5 mg/dL (0.2-1.3)
[2018-02-05] MEDS: HYDROcodone/APAP 5-325MG 1 EACH TAB PO PRN ×2 (10:39→21:04)
[2018-02-05 12:23] LABS: Glucose,Whole Blood 282 mg/dL (75-99)
[2018-02-05 17:18] LABS: Glucose,Whole Blood 275 mg/dL (75-99)
[2018-02-05] MEDS: SUCRALFATE 1 GM TAB PO SCH (20:53)
[2018-02-05] MEDS: FLUoxetine HCL 20 MG CAP PO SCH (20:53)
[2018-02-05 20:55] LABS: Glucose,Whole Blood 338 mg/dL (75-99)
[2018-02-05] MEDS: INSULIN DETEMIR 100 UNIT/ML 10 ML VIAL SQ SCH (20:57)
--- NOTE | 2018-02-05 22:09 | P.PN ---
Subjective Principal diagnosis: Pneumonia. This is a 67-year-old white female essentially admitted for pneumonia. She was recently discharged I think last week from [facility]. She had pneumonia there. She was stable on discharge and states that she does not remember what happened the day after she was discharged. The patient states that her family is stating that she was having altered mental status. She has significant weakness at this time. Although, I did see her ambulate to the bathroom appropriately. She states worsening fatigue since being discharged. No history of secondhand smoke stated. Objective - Vital Signs Vital signs: Vital Signs Temp 97.5 F L 02/05/18 16:37 Pulse 80 02/05/18 16:37 Resp 24 02/05/18 16:37 BP 109/64 02/05/18 16:37 Pulse Ox 98 02/05/18 16:37 Intake & Output 02/05/18 02/05/18 02/06/18 06:59 18:59 06:59 Intake Total 750 960 Balance 750 960 Intake: Oral 750 960 Other: Voiding Method Toilet # Voids 2 2 # Bowel Movements 0 0 - Constitutional General appearance: Present: obese - EENT Eyes: Absent: abnormal pupil - Respiratory Respiratory: bilateral: diminished - Cardiovascular Rhythm: regular Heart sounds: normal: S1, S2 Abnormal Heart Sounds: Absent: S3 Gallop - Gastrointestinal General gastrointestinal: Present: soft. Absent: tenderness - Musculoskeletal Musculoskeletal: Present: gait normal - Psychiatric Psychiatric: Present: A&O x's 3. Absent: appropriate affect - Labs CBC & Chem 7: 02/05/18 08:59 02/05/18 08:59 Labs: Abnormal Lab Results - Last 24 Hours (Table) 02/05/18 02/05/18 02/05/18 Range/Units 06:59 08:59 12:18 Sodium 134 L (137-145) mmol/L Carbon Dioxide 19 L (22-30) mmol/L Glucose 298 H (74-99) mg/dL POC Glucose (mg/dL) 263 H 282 H (75-99) mg/dL 02/05/18 02/05/18 Range/Units 17:13 20:28 Sodium (137-145) mmol/L Carbon Dioxide (22-30) mmol/L Glucose (74-99) mg/dL POC Glucose (mg/dL) 275 H 338 H (75-99) mg/dL Microbiology - Last 24 Hours (Table) 02/01/18 17:13 Blood Culture - Preliminary Blood No Growth after 96 hours Assessment and Plan (1) Community acquired pneumonia Current Visit: Yes Status: Acute Code(s): J18.9 - PNEUMONIA, UNSPECIFIED ORGANISM SNOMED Code(s): 558363578 (2) Angiopathy, diabetic Current Visit: No Status: Acute Code(s): E11.51 - TYPE 2 DIABETES W DIABETIC PERIPHERAL ANGIOPATH W/O GANGRENE SNOMED Code(s): 882069725 (3) Asthma Current Visit: No Status: Acute Code(s): J45.909 - UNSPECIFIED ASTHMA, UNCOMPLICATED SNOMED Code(s): 069330281 (4) Diabetes Current Visit: No Status: Acute Code(s): E11.9 - TYPE 2 DIABETES MELLITUS WITHOUT COMPLICATIONS SNOMED Code(s): 23829163 (5) GERD (gastroesophageal reflux disease) Current Visit: No Status: Acute Code(s): K21.9 - GASTRO-ESOPHAGEAL REFLUX DISEASE WITHOUT ESOPHAGITIS SNOMED Code(s): 597276632 (6) Weakness Current Visit: No Status: Acute Code(s): R53.1 - WEAKNESS SNOMED Code(s): 82807014 Plan: Clinically she seems improved. Continue steroid treatment. Check CBC and see me in a.m. Anticipate discharge in the next 24-48 hours. Time with Patient: Less than 30
[2018-02-05] MEDS: LEVOFLOXACIN 500 MG TAB PO SCH (22:54)
[2018-02-06] MEDS: HEPARIN SODIUM,PORCINE 5,000 UNIT/ML 1 ML VIAL SQ SCH ×4 (00:22→23:22)
[2018-02-06] MEDS: methylPREDNISolone SOD SUCCI 40 MG/ML 1 ML VIAL IV SCH ×2 (00:22→07:42)
[2018-02-06] MEDS: ALBUTEROL NEBULIZED 2.5 MG/3 ML INHALATION PRN ×4 (06:58→19:07)
[2018-02-06 07:02] LABS: Glucose,Whole Blood 311 mg/dL (75-99)
[2018-02-06] MEDS: LOSARTAN 50 MG TAB PO SCH (07:41)
[2018-02-06] MEDS: OXYBUTYNIN CHLORIDE 5 MG TAB PO SCH ×2 (07:41→20:59)
[2018-02-06] MEDS: LORATADINE 10 MG TAB PO SCH (07:41)
[2018-02-06] MEDS: metFORMIN 500 MG TAB PO SCH ×2 (07:41→20:59)
[2018-02-06] MEDS: PANTOPRAZOLE 40 MG TABLET PO SCH (07:41)
[2018-02-06] MEDS: DILTIAZEM CD 180 MG CAP.ER.24H PO SCH (07:41)
[2018-02-06] MEDS: INSULIN ASPART 100 UNIT/ML 1 ML 10 ML VIAL SQ SCH ×4 (07:42→21:00)
[2018-02-06] MEDS: HYDROcodone/APAP 5-325MG 1 EACH TAB PO PRN ×2 (07:50→20:59)
--- NOTE | 2018-02-06 08:39 | P.PN ---
Subjective Principal diagnosis: Pneumonia. This is a continue present 67-year-old white female essentially admitted for pneumonia. The patient is much improved and sitting up in her chair seemingly comfortable. No significant new complaints stated. She had supposed episode of shortness of breath and brief almost choking episode. Cough did clear. She is scheduled to see the nose and throat physician as an outpatient for chronic hoarseness. No sniffing nausea, vomiting or diarrhea stated. Objective - Vital Signs Vital signs: Vital Signs Temp 97.2 F L 02/06/18 06:08 Pulse 85 02/06/18 07:13 Resp 20 02/06/18 06:08 BP 126/83 02/06/18 06:08 Pulse Ox 97 02/06/18 06:08 Intake & Output 02/05/18 02/06/18 02/06/18 18:59 06:59 18:59 Intake Total 960 Balance 960 Intake: Oral 960 Other: Voiding Method Toilet Toilet # Voids 2 2 # Bowel Movements 0 - Constitutional General appearance: Present: obese - EENT Eyes: Absent: abnormal pupil - Respiratory Respiratory: bilateral: diminished - Cardiovascular Rhythm: regular Heart sounds: normal: S1, S2 Abnormal Heart Sounds: Present: S3 Gallop - Gastrointestinal General gastrointestinal: Present: soft. Absent: tenderness - Musculoskeletal Musculoskeletal: Present: generalized weakness - Psychiatric Psychiatric: Present: A&O x's 3, appropriate affect - Labs CBC & Chem 7: 02/05/18 08:59 02/05/18 08:59 Labs: Abnormal Lab Results - Last 24 Hours (Table) 02/05/18 02/05/18 02/05/18 Range/Units 08:59 12:18 17:13 Sodium 134 L (137-145) mmol/L Carbon Dioxide 19 L (22-30) mmol/L Glucose 298 H (74-99) mg/dL POC Glucose (mg/dL) 282 H 275 H (75-99) mg/dL 02/05/18 02/06/18 Range/Units 20:28 07:00 Sodium (137-145) mmol/L Carbon Dioxide (22-30) mmol/L Glucose (74-99) mg/dL POC Glucose (mg/dL) 338 H 311 H (75-99) mg/dL Microbiology - Last 24 Hours (Table) 02/01/18 17:13 Blood Culture - Preliminary Blood No Growth after 96 hours Assessment and Plan (1) Community acquired pneumonia Current Visit: Yes Status: Acute Code(s): J18.9 - PNEUMONIA, UNSPECIFIED ORGANISM SNOMED Code(s): 525065843 (2) Angiopathy, diabetic Current Visit: No Status: Acute Code(s): E11.51 - TYPE 2 DIABETES W DIABETIC PERIPHERAL ANGIOPATH W/O GANGRENE SNOMED Code(s): 649566384 (3) Asthma Current Visit: No Status: Acute Code(s): J45.909 - UNSPECIFIED ASTHMA, UNCOMPLICATED SNOMED Code(s): 747773493 (4) Diabetes Current Visit: No Status: Acute Code(s): E11.9 - TYPE 2 DIABETES MELLITUS WITHOUT COMPLICATIONS SNOMED Code(s): 96279175 (5) GERD (gastroesophageal reflux disease) Current Visit: No Status: Acute Code(s): K21.9 - GASTRO-ESOPHAGEAL REFLUX DISEASE WITHOUT ESOPHAGITIS SNOMED Code(s): 223348947 (6) Weakness Current Visit: No Status: Acute Code(s): R53.1 - WEAKNESS SNOMED Code(s): 20373169 Plan: Continue current regimen of treatment. Wean off of Solu-Medrol later today and start on oral prednisone. Check CBC and CMP in a.m. Anticipate discharge in next 24-48 hours with home health and nebulizer treatment. Time with Patient: Less than 30
[2018-02-06] MEDS: ALPRAZolam 1 MG TAB PO PRN ×2 (10:02→23:22)
[2018-02-06 12:26] LABS: Glucose,Whole Blood 382 mg/dL (75-99)
[2018-02-06] MEDS: predniSONE 20 MG TAB PO SCH (13:21)
[2018-02-06 17:07] LABS: Glucose,Whole Blood 390 mg/dL (75-99)
[2018-02-06 20:34] LABS: Glucose,Whole Blood 286 mg/dL (75-99)
[2018-02-06] MEDS: LEVOFLOXACIN 500 MG TAB PO SCH (20:58)
[2018-02-06] MEDS: FLUoxetine HCL 20 MG CAP PO SCH (20:58)
[2018-02-06] MEDS: INSULIN DETEMIR 100 UNIT/ML 10 ML VIAL SQ SCH (20:59)
[2018-02-06] MEDS: SUCRALFATE 1 GM TAB PO SCH (20:59)
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
[2018-02-07 07:38] LABS: Glucose,Whole Blood 276 mg/dL (75-99)
[2018-02-07] MEDS: predniSONE 20 MG TAB PO SCH (07:51)
[2018-02-07] MEDS: OXYBUTYNIN CHLORIDE 5 MG TAB PO SCH ×2 (07:52→21:13)
[2018-02-07] MEDS: DILTIAZEM CD 180 MG CAP.ER.24H PO SCH (07:52)
[2018-02-07] MEDS: LOSARTAN 50 MG TAB PO SCH (07:52)
[2018-02-07] MEDS: HYDROcodone/APAP 5-325MG 1 EACH TAB PO PRN ×2 (07:52→21:44)
[2018-02-07] MEDS: metFORMIN 500 MG TAB PO SCH ×2 (07:52→21:12)
[2018-02-07] MEDS: PANTOPRAZOLE 40 MG TABLET PO SCH (07:52)
[2018-02-07] MEDS: LORATADINE 10 MG TAB PO SCH (07:52)
[2018-02-07] MEDS: INSULIN ASPART 100 UNIT/ML 1 ML 10 ML VIAL SQ SCH ×4 (07:55→21:35)
[2018-02-07] MEDS: HEPARIN SODIUM,PORCINE 5,000 UNIT/ML 1 ML VIAL SQ SCH ×3 (07:55→23:21)
[2018-02-07] MEDS: ALBUTEROL NEBULIZED 2.5 MG/3 ML INHALATION PRN ×4 (08:36→19:52)
[2018-02-07 09:28] LABS: HCT 36.8 % (34.0-46.0); HGB 11.9 gm/dL (11.4-16.0); MCH 28.6 pg (25.0-35.0); MCHC 32.4 g/dL (31.0-37.0); MCV 88.4 fL (80.0-100.0); Mean Platelet Volume 6.8; Platelet Count 339 k/uL (150-450); RBC 4.16 m/uL (3.80-5.40); RDW 14.2 % (11.5-15.5); WBC 13.3 k/uL (3.8-10.6)
[2018-02-07 10:14] LABS: Albumin 3.3 g/dL (3.5-5.0); Anion Gap 11 mmol/L; Blood Urea Nitrogen 17 mg/dL (7-17); Calcium 9.5 mg/dL (8.4-10.2); Carbon Dioxide 22 mmol/L (22-30); Chloride 103 mmol/L (98-107); Glucose 296 mg/dL (74-99); Sodium 136 mmol/L (137-145); Total Bilirubin 0.4 mg/dL (0.2-1.3); Total Protein 6.5 g/dL (6.3-8.2)
[2018-02-07 10:21] LABS: ALT 42 U/L (9-52); AST 33 U/L (14-36); Alkaline Phosphatase 80 U/L (38-126); Potassium 4.5 mmol/L (3.5-5.1)
[2018-02-07 12:09] LABS: Glucose,Whole Blood 272 mg/dL (75-99)
[2018-02-07 17:20] LABS: Glucose,Whole Blood 360 mg/dL (75-99)
[2018-02-07] MEDS: ALPRAZolam 1 MG TAB PO PRN (18:32)
[2018-02-07 20:55] LABS: Glucose,Whole Blood 359 mg/dL (75-99)
[2018-02-07] MEDS: SUCRALFATE 1 GM TAB PO SCH (21:12)
[2018-02-07] MEDS: FLUoxetine HCL 20 MG CAP PO SCH (21:13)
[2018-02-07] MEDS: LEVOFLOXACIN 500 MG TAB PO SCH (21:18)
[2018-02-07] MEDS: INSULIN DETEMIR 100 UNIT/ML 10 ML VIAL SQ SCH (21:34)
[2018-02-08 07:24] LABS: Glucose,Whole Blood 166 mg/dL (75-99)
[2018-02-08] MEDS: ALBUTEROL NEBULIZED 2.5 MG/3 ML INHALATION PRN (07:37)
--- NOTE | 2018-02-08 07:46 | P.DS ---
Providers Date of admission: 02/03/18 12:57 Attending physician: Nelda Herrera Primary care physician: Quincy Ravi - Discharge Diagnosis(es) (1) Community acquired pneumonia Current Visit: Yes Status: Acute (2) Angiopathy, diabetic Current Visit: No Status: Acute (3) Asthma Current Visit: No Status: Acute (4) Diabetes Current Visit: No Status: Acute (5) GERD (gastroesophageal reflux disease) Current Visit: No Status: Acute (6) Weakness Current Visit: No Status: Acute Hospital Course: This discharge summary 67-year-old white female centimeter for pneumonia. The patient was placed on appropriate nebulizer treatments with steroids and antibiotics and did quite well. She was significantly weak and this was actually a readmission from the other hospital. The patient was stabilized after 6-7 days and appropriate treatment. She will be discharged home health commode chair and a nebulizer simile. Medications 7 reconciled she is tolerating diet without significant diarrhea follow-up with me in about 5-7 days. Patient Condition at Discharge: Stable Plan - Discharge Summary Discharge Rx Participant: No New Discharge Prescriptions: New Albuterol Nebulized [Ventolin Nebulized] 2.5 mg INHALATION RT-QID PRN #100 nebu PRN Reason: Shortness Of Breath Or Wheezing Levofloxacin [Levaquin] 500 mg PO Q24H #5 tab predniSONE 40 mg PO DAILY #7 tab Continue glipiZIDE [Glucotrol XL] 5 mg PO DAILY Oxybutynin Chloride [Ditropan] 5 mg PO BID metFORMIN HCL 1,000 mg PO BID ALPRAZolam [Xanax] 1 mg PO TID PRN PRN Reason: Anxiety Cetirizine HCl [Zyrtec] 10 mg PO DAILY FLUoxetine HCL [PROzac] 20 mg PO HS Hydrocodone/Acetaminophen [[place] 5-325] 1 tab PO Q6HR PRN PRN Reason: Pain Losartan Potassium 50 mg PO DAILY Pantoprazole [Protonix] 40 mg PO DAILY Sucralfate [Carafate] 1 gm PO HS Diltiazem HCl [Cartia Xt] 180 mg PO DAILY Discontinued Cefuroxime Axetil [Ceftin] 500 mg PO BID Discharge Medication List glipiZIDE [Glucotrol XL] 5 mg PO DAILY 09/21/14 [History] Oxybutynin Chloride [Ditropan] 5 mg PO BID 09/23/14 [History] metFORMIN HCL 1,000 mg PO BID 09/23/14 [History] ALPRAZolam [Xanax] 1 mg PO TID PRN 02/13/17 [History] Cetirizine HCl [Zyrtec] 10 mg PO DAILY 02/13/17 [History] FLUoxetine HCL [PROzac] 20 mg PO HS 02/13/17 [History] Hydrocodone/Acetaminophen [[place] 5-325] 1 tab PO Q6HR PRN 02/13/17 [History] Losartan Potassium 50 mg PO DAILY 02/13/17 [History] Pantoprazole [Protonix] 40 mg PO DAILY 02/13/17 [History] Sucralfate [Carafate] 1 gm PO HS 02/13/17 [History] Diltiazem HCl [Cartia Xt] 180 mg PO DAILY 02/01/18 [History] Albuterol Nebulized [Ventolin Nebulized] 2.5 mg INHALATION RT-QID PRN #100 nebu 02/08/18 [Rx] Levofloxacin [Levaquin] 500 mg PO Q24H #5 tab 02/08/18 [Rx] predniSONE 40 mg PO DAILY #7 tab 02/08/18 [Rx] Follow up Appointment(s)/Referral(s): Quincy Ravi MD [Primary Care Provider] - 1-2 days [facility], [NON-STAFF] -
[2018-02-08] MEDS: metFORMIN 500 MG TAB PO SCH (09:00)
[2018-02-08] MEDS: PANTOPRAZOLE 40 MG TABLET PO SCH (09:00)
[2018-02-08] MEDS: HEPARIN SODIUM,PORCINE 5,000 UNIT/ML 1 ML VIAL SQ SCH (09:00)
[2018-02-08] MEDS: DILTIAZEM CD 180 MG CAP.ER.24H PO SCH (09:00)
[2018-02-08] MEDS: LORATADINE 10 MG TAB PO SCH (09:01)
[2018-02-08] MEDS: INSULIN ASPART 100 UNIT/ML 1 ML 10 ML VIAL SQ SCH ×2 (09:01→13:06)
[2018-02-08] MEDS: LOSARTAN 50 MG TAB PO SCH (09:01)
[2018-02-08] MEDS: OXYBUTYNIN CHLORIDE 5 MG TAB PO SCH (09:01)
[2018-02-08] MEDS: predniSONE 20 MG TAB PO SCH (09:01)
[2018-02-08 09:22] VITALS: BP 135/81; TEMP 97.8
[2018-02-08 12:06] VITALS: PULSE 97; RESP 14
[2018-02-08 12:28] LABS: Glucose,Whole Blood 208 mg/dL (75-99)
[2018-02-08] MEDS: ALPRAZolam 1 MG TAB PO PRN (13:11)
[2018-02-08 14:54] VITALS: BMI 44.6
== END 2018-02-08 15:11 | disposition home health service (06) | DRG 194 ==
LOC: EC 16:35 → 4MS4W 20:11 → OBSVTOIN 02-03 12:57
PROVIDERS: ADMIT Internal Medicine; ATTEND Internal Medicine
DX: J18.9 Pneumonia, unspecified organism (principal); Z68.41 Body mass index [BMI] 40.0-44.9, adult; E11.65 Type 2 diabetes mellitus with hyperglycemia; E66.01 Morbid (severe) obesity due to excess calories; E83.42 Hypomagnesemia; F32.9 Major depressive disorder, single episode, unspecified; F41.9 Anxiety disorder, unspecified; G25.81 Restless legs syndrome; I10 Essential (primary) hypertension; J45.909 Unspecified asthma, uncomplicated; K21.9 Gastro-esophageal reflux disease without esophagitis; K44.9 Diaphragmatic hernia without obstruction or gangrene; K58.9 Irritable bowel syndrome, unspecified; M06.9 Rheumatoid arthritis, unspecified; M19.90 Unspecified osteoarthritis, unspecified site; W19.XXXA Unspecified fall, initial encounter; Z79.84 Long term (current) use of oral hypoglycemic drugs; Z83.3 Family history of diabetes mellitus; Z87.440 Personal history of urinary (tract) infections; Z90.710 Acquired absence of both cervix and uterus; Z79.899 Other long term (current) drug therapy; Z88.5 Allergy status to narcotic agent; Z88.0 Allergy status to penicillin; Z91.041 Radiographic dye allergy status; Z91.040 Latex allergy status; F40.240 Claustrophobia
CPT/HCPCS: 36415; 70450; 71046; 80053; 81001; 82550; 82553; 83036; 83605; 83735; 84443; 84484; 85025; 85027; 85610; 85730; 87040; 93005; 94640; 94760; 96365; 96368; 99285

== ENCOUNTER 2018-12-16 22:38 | Inpatient (IN) | payer MEDICARE, OTHER ==
[2018-12-16] MEDS ORDERED: IPRATROPIUM-ALBUTEROL 3 ML NEB INHALATION STA (22:57)
[2018-12-16] MEDS ORDERED: methylPREDNISolone SOD SUCCI 125 MG/2 ML VIAL IV STA (22:57)
--- NOTE | 2018-12-16 23:15 | ED ---
SOB HPI - General Chief Complaint: Shortness of Breath Stated Complaint: Shortness of Breath Time Seen by Provider: 12/16/18 22:45 Source: patient, family, RN notes reviewed Mode of arrival: ambulatory Limitations: no limitations - History of Present Illness Initial Comments: This is a 68-year-old female history of asthma who presents with complaints of shortness of breath for time she states she has exertional dyspnea and shortness of breath cough with green phlegm she states fevers chills and sweats no overt chest pain however. No nausea no vomiting no diarrhea no other modifying factors at this time MD Complaint: shortness of breath - Related Data Home Medications Medication Instructions Recorded Confirmed glipiZIDE [Glucotrol XL] 5 mg PO DAILY 09/21/14 12/16/18 Oxybutynin Chloride [Ditropan] 5 mg PO BID 09/23/14 12/16/18 metFORMIN HCL 1,000 mg PO BID 09/23/14 12/16/18 ALPRAZolam [Xanax] 1 mg PO TID PRN 02/13/17 12/16/18 Losartan Potassium 50 mg PO DAILY 02/13/17 12/16/18 Pantoprazole [Protonix] 40 mg PO DAILY 02/13/17 12/16/18 Sucralfate [Carafate] 1 gm PO BID 02/13/17 12/16/18 Diltiazem HCl [Cartia Xt] 180 mg PO DAILY 02/01/18 12/16/18 Acetaminophen [Tylenol Arthritis] 650 mg PO Q6H PRN 12/16/18 12/16/18 Ascorbic Acid [Vitamin C] 1,000 mg PO DAILY 12/16/18 12/16/18 Aspirin EC [Ecotrin Low Dose] 81 mg PO DAILY 12/16/18 12/16/18 Atorvastatin [Lipitor] 20 mg PO HS 12/16/18 12/16/18 FLUoxetine HCL [PROzac] 40 mg PO DAILY 12/16/18 12/16/18 HYDROcodone/APAP 7.5-325MG [[place] 1 tab PO TID PRN 12/16/18 12/16/18 7.5-325] Naproxen [Naprosyn] 500 mg PO BID 12/16/18 12/16/18 Ondansetron HCl [Zofran] 4 mg PO TID PRN 12/16/18 12/16/18 [id number] Acid 1 cap PO DAILY 12/16/18 12/16/18 [-U Capsule (formulary)] Previous Rx's Medication Instructions Recorded Albuterol Inhaler [Ventolin Hfa 1 - 2 puff INHALATION RT-Q6H PRN 02/08/18 Inhaler] #1 inhaler Albuterol Nebulized [Ventolin 2.5 mg INHALATION RT-QID PRN #100 02/08/18 Nebulized] nebu Allergies Allergy/AdvReac Type Severity Reaction Status Date / Time codeine Allergy Nausea & Verified 12/16/18 23:04 Vomiting Iodinated Contrast- Oral and Allergy Unknown Verified 12/16/18 23:04 IV Dye latex Allergy Rash/Hives Verified 12/16/18 23:04 Penicillins Allergy Anaphylaxis Verified 12/16/18 23:04 Review of Systems ROS Statement: Those systems with pertinent positive or pertinent negative responses have been documented in the HPI. ROS Other: All systems not noted in ROS Statement are negative. Past Medical History Past Medical History: Asthma, Diabetes Mellitus, GERD/Reflux, Hypertension, Osteoarthritis (OA), Rheumatoid Arthritis (RA) Additional Past Medical History / Comment(s): DDD, HEMORRHOIDS,HIATAL HERNIA, IBS, POOR CIRCULATION, RLS History of Any Multi-Drug Resistant Organisms: ESBL Date of last positivie culture/infection: 09/12/15 MDRO Source:: urine e. coli Past Surgical History: Hysterectomy, Orthopedic Surgery, Tubal Ligation Additional Past Surgical History / Comment(s): RT KNEE CAP SX Past Anesthesia/Blood Transfusion Reactions: No Reported Reaction Additional Past Anesthesia/Blood Transfusion Reaction / Comment(s): HEMALPHMOUNIKA REYNA Past Psychological History: Anxiety, Depression Smoking Status: Never smoker Past Alcohol Use History: None Reported Past Drug Use History: None Reported - Past Family History Father Family Medical History: Diabetes Mellitus Mother Family Medical History: GERD/Reflux Additional Family Medical History / Comment(s): FEMALE CANCER Sister(s) Family Medical History: Cancer General Exam - General Exam Comments Initial Comments: This is a well-developed well-nourished awake alert oriented oriented x3 female Limitations: no limitations General appearance: alert, anxious, in distress Head exam: Present: atraumatic, normocephalic, normal inspection Eye exam: Present: normal appearance, PERRL, EOMI. Absent: scleral icterus, conjunctival injection, periorbital swelling ENT exam: Present: normal exam, mucous membranes moist Neck exam: Present: normal inspection, full ROM, other (No stridor JVD or bruits). Absent: tenderness, meningismus, lymphadenopathy Respiratory exam: Present: wheezes, accessory muscle use, decreased breath sounds. Absent: respiratory distress, rales, rhonchi, stridor Cardiovascular Exam: Present: regular rate, normal rhythm, normal heart sounds. Absent: systolic murmur, diastolic murmur, rubs, gallop, clicks GI/Abdominal exam: Present: soft, normal bowel sounds. Absent: distended, tenderness, guarding, rebound, rigid Extremities exam: Present: normal inspection, full ROM, normal capillary refill. Absent: tenderness, pedal edema, joint swelling, calf tenderness Back exam: Present: normal inspection Neurological exam: Present: alert, oriented X3, CN II-XII intact Psychiatric exam: Present: normal affect, normal mood Skin exam: Present: warm, dry, intact, normal color. Absent: rash Course Vital Signs 12/16/18 12/16/18 12/16/18 22:40 23:16 23:25 Temperature 97.5 F L Pulse Rate 82 72 74 Respiratory 18 18 18 Rate Blood Pressure 184/110 O2 Sat by Pulse 97 Oximetry 12/17/18 00:00 Temperature Pulse Rate 72 Respiratory 20 Rate Blood Pressure 150/67 O2 Sat by Pulse 99 Oximetry - Reevaluation(s) Reevaluation #1: 12/17/18 00:38 Reevaluation patient reveals minimal improvement after the initial treatment. Patient will continue with treatment including IV magnesium and DuoNeb treatments. Medical Decision Making - Medical Decision Making Patient is less for failed to improve much with the treatment rendered. She will be admitted with consultation by Dr. Haney who she is seen in the past. The case is discussed with Dr. Ravi - Lab Data Result diagrams: 12/16/18 23:12 12/16/18 23:12 Lab Results 12/16/18 12/16/18 12/16/18 Range/Units 23:12 23:12 23:12 WBC 7.8 (3.8-10.6) k/uL RBC 3.87 (3.80-5.40) m/uL Hgb 11.5 (11.4-16.0) gm/dL Hct 33.7 L (34.0-46.0) % MCV 87.1 (80.0-100.0) fL MCH 29.8 (25.0-35.0) pg MCHC 34.2 (31.0-37.0) g/dL RDW 15.9 H (11.5-15.5) % Plt Count 386 (150-450) k/uL Neutrophils % 46 % Lymphocytes % 41 % Monocytes % 4 % Eosinophils % 6 % Basophils % 1 % Neutrophils # 3.6 (1.3-7.7) k/uL Lymphocytes # 3.2 (1.0-4.8) k/uL Monocytes # 0.3 (0-1.0) k/uL Eosinophils # 0.5 (0-0.7) k/uL Basophils # 0.1 (0-0.2) k/uL PT 10.4 (9.0-12.0) sec INR 1.0 (<1.2) APTT 26.3 (22.0-30.0) sec D-Dimer 0.50 (<0.60) mg/L FEU Sodium 138 (137-145) mmol/L Potassium 4.1 (3.5-5.1) mmol/L Chloride 104 (98-107) mmol/L Carbon Dioxide 21 L (22-30) mmol/L Anion Gap 13 mmol/L BUN 6 L (7-17) mg/dL Creatinine 0.57 (0.52-1.04) mg/dL Est GFR (CKD-EPI)AfAm >90 (>60 ml/min/1.73 sqM) Est GFR (CKD-EPI)NonAf >90 (>60 ml/min/1.73 sqM) Glucose 140 H (74-99) mg/dL Calcium 9.6 (8.4-10.2) mg/dL Magnesium 1.4 L (1.6-2.3) mg/dL Total Bilirubin 0.3 (0.2-1.3) mg/dL AST 28 (14-36) U/L ALT 22 (9-52) U/L Alkaline Phosphatase 95 (38-126) U/L Creatine Kinase 83 (30-135) U/L Troponin I (0.000-0.034) ng/mL NT-Pro-B Natriuret Pep pg/mL Total Protein 7.5 (6.3-8.2) g/dL Albumin 4.2 (3.5-5.0) g/dL 12/16/18 12/16/18 Range/Units 23:12 23:12 WBC (3.8-10.6) k/uL RBC (3.80-5.40) m/uL Hgb (11.4-16.0) gm/dL Hct (34.0-46.0) % MCV (80.0-100.0) fL MCH (25.0-35.0) pg MCHC (31.0-37.0) g/dL RDW (11.5-15.5) % Plt Count (150-450) k/uL Neutrophils % % Lymphocytes % % Monocytes % % Eosinophils % % Basophils % % Neutrophils # (1.3-7.7) k/uL Lymphocytes # (1.0-4.8) k/uL Monocytes # (0-1.0) k/uL Eosinophils # (0-0.7) k/uL Basophils # (0-0.2) k/uL PT (9.0-12.0) sec INR (<1.2) APTT (22.0-30.0) sec D-Dimer (<0.60) mg/L FEU Sodium (137-145) mmol/L Potassium (3.5-5.1) mmol/L Chloride (98-107) mmol/L Carbon Dioxide (22-30) mmol/L Anion Gap mmol/L BUN (7-17) mg/dL Creatinine (0.52-1.04) mg/dL Est GFR (CKD-EPI)AfAm (>60 ml/min/1.73 sqM) Est GFR (CKD-EPI)NonAf (>60 ml/min/1.73 sqM) Glucose (74-99) mg/dL Calcium (8.4-10.2) mg/dL Magnesium (1.6-2.3) mg/dL Total Bilirubin (0.2-1.3) mg/dL AST (14-36) U/L ALT (9-52) U/L Alkaline Phosphatase (38-126) U/L Creatine Kinase (30-135) U/L Troponin I <0.012 (0.000-0.034) ng/mL NT-Pro-B Natriuret Pep 162 pg/mL Total Protein (6.3-8.2) g/dL Albumin (3.5-5.0) g/dL - EKG Data -: EKG Interpreted by Me EKG shows normal: sinus rhythm, axis, intervals, QRS complexes, ST-T waves (Norm al sinus rhythm a 73. Interval 150 to QRS 80 QT since QTC 44/[address]-T wave changes) Rate: normal - Radiology Data Radiology results: image reviewed (I did review the imaging no definite acute changes.) Critical Care Time Critical Care Time: Yes Critical Care Time: 31 minutes of critical care time which includes initial presentation with history physical labs x-rays multiple reevaluation the patient responsive therapy review of old charting was available discussed with the main physician admission orders and documentation of the above Disposition Clinical Impression: Acute exacerbation of chronic obstructive pulmonary disease, Acute respiratory distress syndrome in adult, Failure of outpatient treatment, Exertional dyspnea, Hypomagnesemia syndrome Disposition: ADMITTED IP TO THIS HOSP Condition: Fair Referrals: Quincy Ravi MD [Primary Care Provider] - 1-2 days
[2018-12-16 23:34] LABS: Basophils # (A) 0.1 k/uL (0-0.2); Basophils % (A) 1 %; Eosinophils # (A) 0.5 k/uL (0-0.7); Eosinophils % (A) 6 %; HCT 33.7 % (34.0-46.0); HGB 11.5 gm/dL (11.4-16.0); Lymphocytes # (A) 3.2 k/uL (1.0-4.8); Lymphocytes % (A) 41 %; MCH 29.8 pg (25.0-35.0); MCHC 34.2 g/dL (31.0-37.0); MCV 87.1 fL (80.0-100.0); Monocytes # (A) 0.3 k/uL (0-1.0); Monocytes % (A) 4 %; Neutrophils # (A) 3.6 k/uL (1.3-7.7); Neutrophils % (A) 46 %; Platelet Count 386 k/uL (150-450); RBC 3.87 m/uL (3.80-5.40); RDW 15.9 % (11.5-15.5); WBC 7.8 k/uL (3.8-10.6)
[2018-12-16 23:45] LABS: ALT 22 U/L (9-52); AST 28 U/L (14-36); African American GFR (CKD) >90 (>60 ml/min/1.73 sqM); Albumin 4.2 g/dL (3.5-5.0); Alkaline Phosphatase 95 U/L (38-126); Anion Gap 13 mmol/L; Blood Urea Nitrogen 6 mg/dL (7-17); Calcium 9.6 mg/dL (8.4-10.2); Carbon Dioxide 21 mmol/L (22-30); Chloride 104 mmol/L (98-107); Creatine Kinase 83 U/L (30-135); Glucose 140 mg/dL (74-99); Magnesium 1.4 mg/dL (1.6-2.3); Non-African American GFR(CKD) >90 (>60 ml/min/1.73 sqM); Potassium 4.1 mmol/L (3.5-5.1); Sodium 138 mmol/L (137-145); Total Bilirubin 0.3 mg/dL (0.2-1.3); Total Protein 7.5 g/dL (6.3-8.2)
[2018-12-16 23:48] LABS: D-Dimer 0.5 mg/L FEU (<0.60); Partial Thromboplastin Time 26.3 sec (22.0-30.0); Prothrombin Time 10.4 sec (9.0-12.0)
[2018-12-17] MEDS ORDERED: IPRATROPIUM-ALBUTEROL 3 ML NEB INHALATION STA ×2 (00:38→00:40)
--- NOTE | 2018-12-17 00:41 | XR ---
EXAM: XR Chest, 2 Views CLINICAL HISTORY: ITS.REASON XR Reason: difficulty breathing TECHNIQUE: Frontal and lateral views of the chest. COMPARISON: Chest radiograph on 02/01/2018 FINDINGS: Hardware: None. Lungs/pleura: Interstitial and hazy opacities throughout the lungs. No pleural effusion or pneumothorax. Heart/mediastinum: Mild enlargement of the cardiomediastinal silhouette. Soft tissues: Unremarkable. Bones: No acute fracture. Upper abdomen: Normal. IMPRESSION: Interstitial and hazy opacities throughout the lungs, suggestive of pulmonary edema and pulmonary vasculature congestion. Component of infectious/inflammatory process is not excluded.
[2018-12-17] MEDS: MAGNESIUM SULFATE-D5W PMX 1 GM in DEXTROSE/WATER 1 100ML.BAG IVPB SCH ×2 (00:42→02:09)
[2018-12-17] MEDS ORDERED: ACETAMINOPHEN TAB 325 MG TAB PO PRN (00:43)
[2018-12-17] MEDS: HYDROcodone/APAP 7.5-325MG 1 EACH TAB PO PRN ×4 (02:08→21:21)
[2018-12-17] MEDS: ONDANSETRON 4 MG TAB PO PRN (02:08)
[2018-12-17] MEDS: methylPREDNISolone SOD SUCCI 125 MG/2 ML VIAL IV SCH ×4 (05:12→23:19)
[2018-12-17] MEDS: IPRATROPIUM-ALBUTEROL 3 ML NEB INHALATION PRN ×4 (05:34→20:42)
[2018-12-17] MEDS: FLUoxetine HCL 20 MG CAP PO SCH (08:11)
[2018-12-17] MEDS: OXYBUTYNIN CHLORIDE 5 MG TAB PO SCH ×2 (08:12→21:21)
[2018-12-17] MEDS: LOSARTAN 50 MG TAB PO SCH (08:12)
[2018-12-17] MEDS: SUCRALFATE 1 GM TAB PO SCH ×2 (08:13→21:21)
[2018-12-17] MEDS: metFORMIN 500 MG TAB PO SCH ×2 (08:13→21:20)
[2018-12-17] MEDS: PANTOPRAZOLE 40 MG TABLET PO SCH (08:13)
[2018-12-17] MEDS: ALPRAZolam 1 MG TAB PO PRN ×3 (08:13→21:20)
[2018-12-17] MEDS: ASPIRIN 81 MG PO SCH (08:13)
[2018-12-17] MEDS: INSULIN ASPART (NovoLOG) 100 UNIT/ML VIAL SQ SCH ×5 (08:15→21:21)
[2018-12-17 08:19] LABS: Glucose,Whole Blood 298 mg/dL (75-99)
[2018-12-17] MEDS: NAPROXEN 250 MG TAB PO SCH ×2 (09:30→21:26)
[2018-12-17] MEDS: AZITHROMYCIN 500 MG TAB PO SCH (09:30)
[2018-12-17] MEDS: DILTIAZEM CD 180 MG CAP.ER.24H PO SCH (09:31)
[2018-12-17 12:05] LABS: Glucose,Whole Blood 364 mg/dL (75-99)
[2018-12-17] MEDS ORDERED: ZOLPIDEM 5 MG TAB PO PRN (13:52)
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
[2018-12-17] MEDS: guaiFENesin SYRUP 100MG/5ML 200 MG/10 ML CUP PO PRN ×2 (16:13→21:21)
[2018-12-17 16:47] LABS: Glucose,Whole Blood 306 mg/dL (75-99)
[2018-12-17 20:09] LABS: Glucose,Whole Blood 348 mg/dL (75-99)
[2018-12-17] MEDS: BUDESONIDE 0.5 MG/2 ML NEBU INHALATION SCH (20:42)
[2018-12-17] MEDS: ATORVASTATIN 20 MG TAB PO SCH (21:20)
[2018-12-17] MEDS: HEPARIN SODIUM,PORCINE 5,000 UNIT/ML 1 ML VIAL SQ SCH (21:21)
[2018-12-17] MEDS: MONTELUKAST 10 MG TAB PO SCH (21:21)
--- NOTE | 2018-12-17 22:31 | CONS ---
CONSULTATION This patient is a 68-year-old female who presented to [facility] ED with increasing shortness of breath that has been associated with cough and wheezing. She also was bringing up some greenish phlegm. She had no clear fever or chills. She denied any chest pain. She subsequently was admitted for further evaluation and management. PAST MEDICAL HISTORY: 1. Asthma. 2. Diabetes mellitus. 3. Gastroesophageal reflux disease. 4. Osteoarthritis. 5. Rheumatoid arthritis. 6. Previous right kneecap surgery. 7. History of claustrophobia. 8. Anxiety. 9. Depression. FAMILY HISTORY: Positive for diabetes in her father. Mother had a history of gastroesophageal reflux disease. SOCIAL HISTORY: The patient is a nonsmoker. 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 She was not exposed to any noxious chemicals. ALLERGIES: 1. CODEINE. 2. IODINATED CONTRAST. 3. LATEX. 4. PENICILLIN. MEDICATIONS: Her medications prior to admission were: 1. Metformin. 2. Xanax. 3. Glucotrol XL. 4. Carafate. 5. Acetaminophen. 6. Albuterol inhaler. 7. Albuterol nebulized. 8. Vitamin C. 9. Ecotrin. 10.Lipitor. 11.Cartia XT. 12.Prozac. 13.Hydrocodone with acetaminophen. 14.Losartan. 15.Naprosyn. 16.Ondansetron. 17.Oxybutynin chloride. 18.Pantoprazole. 19. vitamin. REVIEW OF SYSTEMS: Positive for obesity. PHYSICAL EXAMINATION: She was lying in bed. Her respiratory rate is 16, pulse rate 83, temperature 98.3, blood pressure 152/73, oxygen saturation on room air 95%. HEENT reveals pupils that are equal. She has redundant tissue in the posterior pharynx. Chest reveals decreased breath sounds with prolonged exhalation. There is expiratory wheezing on forced expiratory maneuver. Cardiovascular system reveals an S1, S2. No S3, S4. Abdomen is soft. There is trace pedal edema. LABS/IMAGING: White count 7.8, hemoglobin of 11.5. Eosinophils of 0.5 thousand. Sodium 138, potassium 4.1, chloride 104, bicarb 21, BUN 6, creatinine 0.57, magnesium 1.4, glucose 298. Chest x-ray shows some interstitial prominence. IMPRESSION AT THIS TIME: 1. Asthma with acute exacerbation. 2. Possible hypersensitivity pneumonitis. 3. Frequent recurrent pneumonias versus frequent asthma exacerbations in the past. At this point in time, would continue IV steroids, bronchodilators, add aerosolized steroids and montelukast to her regimen. Keep her on GI and DVT prophylaxis. Continue azithromycin to cover for atypicals. She has an eosinophilic phenotype and may benefit from a biologic. We will be happy to see her in the outpatient setting if need be. She was counseled regarding her condition and this approach and has a fair understanding of our recommendations. MMODL / IJN: [id number] /
[2018-12-18] MEDS: methylPREDNISolone SOD SUCCI 125 MG/2 ML VIAL IV SCH ×3 (05:33→17:20)
[2018-12-18 07:06] LABS: HCT 34.2 % (34.0-46.0); HGB 11.2 gm/dL (11.4-16.0); MCH 29.6 pg (25.0-35.0); MCHC 32.8 g/dL (31.0-37.0); Platelet Count 403 k/uL (150-450); RDW 14.4 % (11.5-15.5); WBC 13.6 k/uL (3.8-10.6)
[2018-12-18 07:10] LABS: Glucose,Whole Blood 260 mg/dL (75-99)
[2018-12-18 07:21] LABS: ALT 26 U/L (9-52); AST 21 U/L (14-36); African American GFR (CKD) >90 (>60 ml/min/1.73 sqM); Albumin 4.3 g/dL (3.5-5.0); Alkaline Phosphatase 96 U/L (38-126); Anion Gap 16 mmol/L; Blood Urea Nitrogen 13 mg/dL (7-17); Calcium 10.2 mg/dL (8.4-10.2); Carbon Dioxide 22 mmol/L (22-30); Chloride 102 mmol/L (98-107); Glucose 265 mg/dL (74-99); Non-African American GFR(CKD) 80 (>60 ml/min/1.73 sqM); Potassium 5.2 mmol/L (3.5-5.1); Sodium 140 mmol/L (137-145); Total Bilirubin 0.4 mg/dL (0.2-1.3); Total Protein 7.7 g/dL (6.3-8.2)
[2018-12-18] MEDS: AZITHROMYCIN 500 MG TAB PO SCH (07:22)
[2018-12-18] MEDS: DILTIAZEM CD 180 MG CAP.ER.24H PO SCH (07:22)
[2018-12-18] MEDS: FLUoxetine HCL 20 MG CAP PO SCH (07:22)
[2018-12-18] MEDS: ASPIRIN 81 MG PO SCH (07:22)
[2018-12-18] MEDS: INSULIN ASPART (NovoLOG) 100 UNIT/ML VIAL SQ SCH ×4 (07:22→20:41)
[2018-12-18] MEDS: OXYBUTYNIN CHLORIDE 5 MG TAB PO SCH ×2 (07:23→22:18)
[2018-12-18] MEDS: PANTOPRAZOLE 40 MG TABLET PO SCH (07:23)
[2018-12-18] MEDS: LOSARTAN 50 MG TAB PO SCH (07:23)
[2018-12-18] MEDS: metFORMIN 500 MG TAB PO SCH ×2 (07:23→22:17)
[2018-12-18] MEDS: SUCRALFATE 1 GM TAB PO SCH ×2 (07:23→22:18)
[2018-12-18] MEDS: NAPROXEN 250 MG TAB PO SCH ×2 (07:23→22:17)
[2018-12-18] MEDS: HEPARIN SODIUM,PORCINE 5,000 UNIT/ML 1 ML VIAL SQ SCH ×2 (07:26→22:17)
[2018-12-18] MEDS: HYDROcodone/APAP 7.5-325MG 1 EACH TAB PO PRN ×2 (09:02→17:21)
[2018-12-18] MEDS: ALPRAZolam 1 MG TAB PO PRN ×2 (09:03→17:21)
[2018-12-18] MEDS: IPRATROPIUM-ALBUTEROL 3 ML NEB INHALATION PRN ×3 (09:04→20:09)
[2018-12-18] MEDS: BUDESONIDE 0.5 MG/2 ML NEBU INHALATION SCH ×2 (09:04→20:09)
[2018-12-18 12:33] LABS: Glucose,Whole Blood 327 mg/dL (75-99)
--- NOTE | 2018-12-18 13:05 | P.PN ---
Subjective Progress Note Date: 12/18/18 Principal diagnosis: Assessment headache bronchitis with acute exacerbation, morbid obesity, diabetes mellitus, GERD 12/18/2018, patient seen eval reexamined during the rounds labs reviewed medications reviewed care plan discussed with the patient at length shortness of breath and wheezing is improved still on IV steroids breathing treatments and bronchodilator Objective - Vital Signs Vital signs: Vital Signs Temp 97.8 F 12/18/18 07:00 Pulse 80 12/18/18 09:24 Resp 16 12/18/18 07:00 BP 147/86 12/18/18 07:00 Pulse Ox 97 12/18/18 07:00 Intake & Output 12/17/18 12/18/18 12/18/18 18:59 06:59 18:59 Intake Total 240 Balance 240 Intake: Oral 240 Other: Voiding Method Toilet Toilet Toilet # Voids 2 2 - Exam - Constitutional General appearance: cooperative, no acute distress, obese - EENT Eyes: EOMI - Neck Neck: no lymphadenopathy - Respiratory Respiratory: bilateral: diminished - Cardiovascular Rhythm: regular Heart sounds: normal: S1, S2 Abnormal Heart Sounds: no S3 Gallop - Gastrointestinal General gastrointestinal: soft, no tenderness - Neurologic Neurologic: CNII-XII intact - Psychiatric Psychiatric: A&O x's 3, appropriate affect - Labs CBC & Chem 7: 12/18/18 06:36 12/18/18 06:36 Labs: Abnormal Lab Results - Last 24 Hours (Table) 12/17/18 12/17/18 12/18/18 Range/Units 16:34 19:56 06:36 WBC 13.6 H (3.8-10.6) k/uL Hgb 11.2 L (11.4-16.0) gm/dL Potassium (3.5-5.1) mmol/L Glucose (74-99) mg/dL POC Glucose (mg/dL) 306 H 348 H (75-99) mg/dL 12/18/18 12/18/18 12/18/18 Range/Units 06:36 07:09 12:20 WBC (3.8-10.6) k/uL Hgb (11.4-16.0) gm/dL Potassium 5.2 H (3.5-5.1) mmol/L Glucose 265 H (74-99) mg/dL POC Glucose (mg/dL) 260 H 327 H (75-99) mg/dL Microbiology - Last 24 Hours (Table) 12/16/18 23:12 Blood Culture - Preliminary Blood No Growth after 24 hours Assessment and Plan Assessment: Acute asthmatic bronchitis COPD exacerbation Morbid obesity Tracheobronchitis Potential hypertensive cardiovascular disease Plan: Breathing treatments V steroids Antibiotics Supplemental oxygen as needed Recommendations pending plan of care as per clinical response of the patient Time with Patient: Greater than 30
[2018-12-18 16:58] LABS: Glucose,Whole Blood 299 mg/dL (75-99)
--- NOTE | 2018-12-18 19:00 | P.PN ---
Subjective Progress Note Date: 12/18/18 Principal diagnosis: This is a continue progress note a 68-year-old white female who is admitted for acute tracheal bronchitis and COPD. She feels much better after having an appr opriate night sleep. However, they are exterminating/fumigating her home because of bed bug infestation. Otherwise no new voiding difficulties. No significant nausea, vomiting or diarrhea. She seems to be tolerating diet better today. Objective - Vital Signs Vital signs: Vital Signs Temp 97.7 F 12/18/18 15:00 Pulse 80 12/18/18 16:25 Resp 15 12/18/18 15:00 BP 119/76 12/18/18 15:00 Pulse Ox 97 12/18/18 15:00 Intake & Output 12/17/18 12/18/18 12/18/18 18:59 06:59 18:59 Intake Total 780 Balance 780 Intake: Oral 780 Other: Voiding Method Toilet Toilet Toilet # Voids 2 2 2 - Constitutional General appearance: Present: average body habitus - EENT Eyes: Absent: abnormal pupil - Neck Neck: Present: lymphadenopathy - Respiratory Respiratory: bilateral: CTA - Cardiovascular Rhythm: regular Heart sounds: normal: S1, S2 Abnormal Heart Sounds: Absent: S3 Gallop - Gastrointestinal General gastrointestinal: Present: soft. Absent: tenderness - Integumentary Integumentary: Absent: cellulitis - Psychiatric Psychiatric: Present: A&O x's 3, appropriate affect - Labs CBC & Chem 7: 12/18/18 06:36 12/18/18 06:36 Labs: Abnormal Lab Results - Last 24 Hours (Table) 12/17/18 12/18/18 12/18/18 Range/Units 19:56 06:36 06:36 WBC 13.6 H (3.8-10.6) k/uL Hgb 11.2 L (11.4-16.0) gm/dL Potassium 5.2 H (3.5-5.1) mmol/L Glucose 265 H (74-99) mg/dL POC Glucose (mg/dL) 348 H (75-99) mg/dL 12/18/18 12/18/18 12/18/18 Range/Units 07:09 12:20 16:56 WBC (3.8-10.6) k/uL Hgb (11.4-16.0) gm/dL Potassium (3.5-5.1) mmol/L Glucose (74-99) mg/dL POC Glucose (mg/dL) 260 H 327 H 299 H (75-99) mg/dL Microbiology - Last 24 Hours (Table) 12/16/18 23:12 Blood Culture - Preliminary Blood No Growth after 24 hours Assessment and Plan (1) Acute exacerbation of chronic obstructive pulmonary disease Current Visit: Yes Status: Acute Code(s): J44.1 - CHRONIC OBSTRUCTIVE PULMONARY DISEASE W (ACUTE) EXACERBATION SNOMED Code(s): 818172702 (2) Exertional dyspnea Current Visit: Yes Status: Acute Code(s): R06.09 - OTHER FORMS OF DYSPNEA SNOMED Code(s): 05381571 (3) Failure of outpatient treatment Current Visit: Yes Status: Acute Code(s): Z78.9 - OTHER SPECIFIED HEALTH STATUS SNOMED Code(s): 707165915 (4) Asthma Current Visit: No Status: Acute Code(s): J45.909 - UNSPECIFIED ASTHMA, UNCOMPLICATED SNOMED Code(s): 735656652 (5) Diabetes Current Visit: No Status: Acute Code(s): E11.9 - TYPE 2 DIABETES MELLITUS WITHOUT COMPLICATIONS SNOMED Code(s): 76122745 (6) GERD (gastroesophageal reflux disease) Current Visit: No Status: Acute Code(s): K21.9 - GASTRO-ESOPHAGEAL REFLUX DISEASE WITHOUT ESOPHAGITIS SNOMED Code(s): 936586883 Plan: Continue current regimen of treatment. Steroid taper as necessary. Check CBC and CMP in the a.m. New preop anticipate discharge in the next 24-48 hours. Time with Patient: Greater than 30
[2018-12-18 20:09] LABS: Glucose,Whole Blood 302 mg/dL (75-99)
[2018-12-18] MEDS: MONTELUKAST 10 MG TAB PO SCH (22:17)
[2018-12-18] MEDS: ATORVASTATIN 20 MG TAB PO SCH (22:17)
[2018-12-18] MEDS: guaiFENesin SYRUP 100MG/5ML 200 MG/10 ML CUP PO PRN (22:18)
[2018-12-19] MEDS: ALPRAZolam 1 MG TAB PO PRN ×3 (01:21→21:04)
[2018-12-19] MEDS: HYDROcodone/APAP 7.5-325MG 1 EACH TAB PO PRN ×3 (01:21→21:04)
[2018-12-19] MEDS: methylPREDNISolone SOD SUCCI 125 MG/2 ML VIAL IV SCH ×2 (01:21→05:43)
[2018-12-19 06:47] LABS: Glucose,Whole Blood 342 mg/dL (75-99)
[2018-12-19] MEDS: INSULIN ASPART (NovoLOG) 100 UNIT/ML VIAL SQ SCH ×4 (07:19→21:04)
[2018-12-19] MEDS: DILTIAZEM CD 180 MG CAP.ER.24H PO SCH (07:20)
[2018-12-19] MEDS: ASPIRIN 81 MG PO SCH (07:20)
[2018-12-19] MEDS: metFORMIN 500 MG TAB PO SCH ×2 (07:20→21:04)
[2018-12-19] MEDS: FLUoxetine HCL 20 MG CAP PO SCH (07:21)
[2018-12-19] MEDS: LOSARTAN 50 MG TAB PO SCH (07:21)
[2018-12-19] MEDS: SUCRALFATE 1 GM TAB PO SCH ×2 (07:21→21:04)
[2018-12-19] MEDS: PANTOPRAZOLE 40 MG TABLET PO SCH (07:21)
[2018-12-19] MEDS: OXYBUTYNIN CHLORIDE 5 MG TAB PO SCH ×2 (07:21→21:04)
[2018-12-19] MEDS: NAPROXEN 250 MG TAB PO SCH ×2 (07:22→21:04)
[2018-12-19] MEDS: HEPARIN SODIUM,PORCINE 5,000 UNIT/ML 1 ML VIAL SQ SCH ×2 (07:23→21:04)
[2018-12-19] MEDS: AZITHROMYCIN 500 MG TAB PO SCH (07:23)
--- NOTE | 2018-12-19 07:39 | P.PN ---
Subjective Principal diagnosis: This is a continue progress note a 68-year-old white female who is admitted for acute tracheal bronchitis and COPD. She feels much better after having an appropriate night sleep. However, they are exterminating/fumigating her home because of bed bug infestation. Otherwise no new voiding difficulties. No sign ificant nausea, vomiting or diarrhea. She seems to be tolerating diet better today. Decrease steroid dosing today Objective - Vital Signs Vital signs: Vital Signs Temp 98.7 F 12/19/18 01:32 Pulse 72 12/19/18 01:32 Resp 16 12/19/18 01:32 BP 142/76 12/19/18 01:32 Pulse Ox 98 12/19/18 01:32 Intake & Output 12/18/18 12/19/18 12/19/18 18:59 06:59 18:59 Intake Total 780 Balance 780 Intake: Oral 780 Other: Voiding Method Toilet # Voids 2 1 - Constitutional General appearance: Present: no acute distress, obese - EENT Eyes: Absent: abnormal pupil - Neck Neck: Absent: lymphadenopathy - Respiratory Respiratory: bilateral: CTA - Cardiovascular Rhythm: regular Heart sounds: normal: S1, S2 Abnormal Heart Sounds: Absent: S3 Gallop - Gastrointestinal General gastrointestinal: Present: soft. Absent: tenderness - Integumentary Integumentary: Absent: cellulitis - Labs CBC & Chem 7: 12/18/18 06:36 12/18/18 06:36 Labs: Abnormal Lab Results - Last 24 Hours (Table) 12/18/18 12/18/18 12/18/18 Range/Units 12:20 16:56 20:07 POC Glucose (mg/dL) 327 H 299 H 302 H (75-99) mg/dL 12/19/18 Range/Units 06:45 POC Glucose (mg/dL) 342 H (75-99) mg/dL Microbiology - Last 24 Hours (Table) 12/16/18 23:12 Blood Culture - Preliminary Blood No Growth after 48 hours Assessment and Plan (1) Acute exacerbation of chronic obstructive pulmonary disease Current Visit: Yes Status: Acute Code(s): J44.1 - CHRONIC OBSTRUCTIVE PULMONARY DISEASE W (ACUTE) EXACERBATION SNOMED Code(s): 512153759 (2) Exertional dyspnea Current Visit: Yes Status: Acute Code(s): R06.09 - OTHER FORMS OF DYSPNEA SNOMED Code(s): 43632922 (3) Failure of outpatient treatment Current Visit: Yes Status: Acute Code(s): Z78.9 - OTHER SPECIFIED HEALTH STATUS SNOMED Code(s): 441151263 (4) Asthma Current Visit: No Status: Acute Code(s): J45.909 - UNSPECIFIED ASTHMA, [place] OMPLICATED SNOMED Code(s): 256146619 (5) Diabetes Current Visit: No Status: Acute Code(s): E11.9 - TYPE 2 DIABETES MELLITUS WITHOUT COMPLICATIONS SNOMED Code(s): 38530287 (6) GERD (gastroesophageal reflux disease) Current Visit: No Status: Acute Code(s): K21.9 - GASTRO-ESOPHAGEAL REFLUX DISEASE WITHOUT ESOPHAGITIS SNOMED Code(s): 062933477 Plan: Continue current regimen of treatment. Steroid taper as necessary. Check CBC and CMP in the a.m. New preop anticipate discharge in the next 24-48 hours.
[2018-12-19 11:17] LABS: Glucose,Whole Blood 366 mg/dL (75-99)
--- NOTE | 2018-12-19 11:20 | PN ---
PROGRESS NOTE She was seen on 12/19/2018. She is less short of breath and is doing significantly better overall. PHYSICAL EXAMINATION: On physical examination, respiratory rate is 16, pulse rate of 80, temperature 97.4, blood pressure 139/81. HEENT is unremarkable. Chest reveals expiratory wheeze only on forced exhalation. Cardiovascular system reveals an S1, S2. Abdomen is soft. There is trace pedal edema. IgE level is 40.3. IMPRESSION AT THIS TIME: 1. Asthma with acute exacerbation. 2. Possible hypersensitivity pneumonitis. 3. Eosinophilic phenotype with elevated eosinophiles as regards to her asthma is concerned. Continue her on systemic steroids. Switch her to oral steroids tonight and if she is otherwise stable, would agree with possible discharge planning tomorrow with close outpatient followup. She was counseled regarding her condition and this approach. MMODL / IJN: [id number] /
[2018-12-19] MEDS: predniSONE 20 MG TAB PO SCH (12:34)
[2018-12-19] MEDS: BUDESONIDE 0.5 MG/2 ML NEBU INHALATION SCH ×2 (12:37→19:40)
[2018-12-19] MEDS: IPRATROPIUM-ALBUTEROL 3 ML NEB INHALATION PRN ×2 (12:44→19:41)
[2018-12-19] MEDS ORDERED: methylPREDNISolone SOD SUCCI 40 MG/ML 1 ML VIAL IV SCH (14:00)
[2018-12-19 14:59] LABS: Alt. alternata IgE Class CLASS 0; Alternaria alternata IgE <0.35 kU/L (<0.35); Asperg. fumagatus IgE <0.35 kU/L (<0.35); Asperg. fumagatus IgE Class CLASS 0; Bermuda Grass IgE <0.35 kU/L (<0.35); Birch(Com.Silvr) IgE <0.35 kU/L (<0.35); Birch(Com.Silvr) IgE Class CLASS 0; Cat Epith & Dander IgE Class CLASS III; Clad herbarum IgE <0.35 kU/L (<0.35); Clad herbarum IgE Class CLASS 0; Cockroach IgE <0.35 kU/L (<0.35); Cottonwood IgE <0.35 kU/L (<0.35); Dermato. Pteronyssinus Class CLASS 0; Dermato. Pteronyssinus IgE <0.35 kU/L (<0.35); Dermato. farinae IgE <0.35 kU/L (<0.35); Dermato. farinae IgE Class CLASS 0; Dog Dander IgE 0.52 kU/L (<0.35); Elm IgE <0.35 kU/L (<0.35); IgE (Allergen) 40.6 IU/mL (<114.0); Maple (Box Elder) IgE <0.35 kU/L (<0.35); Maple (Box Elder) IgE Class CLASS 0; Mountain Cedar IgE <0.35 kU/L (<0.35); Mountain Cedar IgE Class CLASS 0; Mouse Urine IgE Class CLASS 0; Mouse Urine Proteins,IgE <0.35 kU/L (<0.35); Nettle IgE <0.35 kU/L (<0.35); Nettle IgE Class CLASS 0; Oak IgE <0.35 kU/L (<0.35); Penicillium notatum IgE Class CLASS 0; Rough Marshelder IgE <0.35 kU/L (<0.35); Rough Marshelder IgE Class CLASS 0; Timothy Grass IgE <0.35 kU/L (<0.35); Timothy Grass IgE Class CLASS 0; White Ash IgE Class CLASS 0
--- NOTE | 2018-12-19 15:06 | CDI ---
Documentation Clarification Form Date: 12/19/2018 2:55:16 PM From: Moriah Hawley RN CCDS Admit Date: 12/19/2018 9:23:00 AM Patient Name: Tena Yang Visit Number: [id number] Discharge Date: ATTENTION: The Clinical Documentation Specialists (CDI) and [facility] Coding Staff appreciate your assistance in clarifying documentation. Please respond to the clarification below the line at the bottom and electronically sign. The CDI & [facility] Coding staff will review the response and follow-up if needed. Please note: Queries are made part of the Legal Health Record. If you have any questions, please contact the author of this message via ITS. Dr. Jose Haney Asthma with acute exacerbation is documented in your progress note. History/risk factors: 68 year old female presents to the ED for shortness of breath. Clinical Indicators: Radiology: CXR interstitial and hazy opacities throughout the lungs, suggestive of pulmonary edema and pulmonary vasculature congestion. Component of infectious/inflammatory process is not excluded. Vital Signs: 184/110 82 97.5 18 97% ra Other Clinical Indicators: Treatment: Duonebs; Zithromax, Pulmicort, Robitussin; Singulair , Solumedrol In your professional opinion, can you please further specify the following, if known? Severity Mild intermittent Mild persistent Moderate persistent Severe persistent Other, please specify ____ Unable to determine Form or Type Cough variant Childhood Exercise induced bronchospasm Extrinsic allergic Idiosyncratic Intrinsic nonallergic Late-onset Mixed Other, please specify____ Unable to determine (Last Revision: July 2017) MTDD
[2018-12-19 17:11] LABS: Glucose,Whole Blood 332 mg/dL (75-99)
[2018-12-19 20:55] LABS: Glucose,Whole Blood 395 mg/dL (75-99)
[2018-12-19] MEDS: guaiFENesin SYRUP 100MG/5ML 200 MG/10 ML CUP PO PRN (21:04)
[2018-12-19] MEDS: ATORVASTATIN 20 MG TAB PO SCH (21:04)
[2018-12-19] MEDS: MONTELUKAST 10 MG TAB PO SCH (21:04)
[2018-12-20 06:55] LABS: Glucose,Whole Blood 243 mg/dL (75-99)
[2018-12-20] MEDS: INSULIN ASPART (NovoLOG) 100 UNIT/ML VIAL SQ SCH ×3 (07:25→17:17)
[2018-12-20] MEDS: HEPARIN SODIUM,PORCINE 5,000 UNIT/ML 1 ML VIAL SQ SCH (07:25)
[2018-12-20] MEDS: OXYBUTYNIN CHLORIDE 5 MG TAB PO SCH (07:25)
[2018-12-20] MEDS: SUCRALFATE 1 GM TAB PO SCH (07:26)
[2018-12-20] MEDS: metFORMIN 500 MG TAB PO SCH (07:26)
[2018-12-20] MEDS: ASPIRIN 81 MG PO SCH (07:26)
[2018-12-20] MEDS: FLUoxetine HCL 20 MG CAP PO SCH (07:26)
[2018-12-20] MEDS: PANTOPRAZOLE 40 MG TABLET PO SCH (07:27)
[2018-12-20] MEDS: LOSARTAN 50 MG TAB PO SCH (07:27)
[2018-12-20] MEDS: predniSONE 20 MG TAB PO SCH (07:27)
[2018-12-20] MEDS: DILTIAZEM CD 180 MG CAP.ER.24H PO SCH (07:27)
[2018-12-20] MEDS: AZITHROMYCIN 500 MG TAB PO SCH (07:27)
[2018-12-20] MEDS: NAPROXEN 250 MG TAB PO SCH (07:28)
[2018-12-20 07:41] VITALS: BP 142/77; RESP 16; TEMP 97.6
[2018-12-20] MEDS: IPRATROPIUM-ALBUTEROL 3 ML NEB INHALATION PRN ×2 (08:08→16:40)
[2018-12-20] MEDS: BUDESONIDE 0.5 MG/2 ML NEBU INHALATION SCH (08:08)
[2018-12-20 08:14] LABS: HCT 35.5 % (34.0-46.0); HGB 11.8 gm/dL (11.4-16.0); MCH 29.6 pg (25.0-35.0); MCHC 33.2 g/dL (31.0-37.0); Platelet Count 435 k/uL (150-450); RBC 3.99 m/uL (3.80-5.40); RDW 13.6 % (11.5-15.5); WBC 14.2 k/uL (3.8-10.6)
[2018-12-20 08:24] LABS: Albumin 3.9 g/dL (3.5-5.0); Potassium 5.2 mmol/L (3.5-5.1); Total Bilirubin 0.3 mg/dL (0.2-1.3)
--- NOTE | 2018-12-20 08:51 | CDI ---
Documentation Clarification Form Date: 12/19/2018 2:55:16 PM From: Moriah Hawley RN CCDS Admit Date: 12/19/2018 9:23:00 AM Patient Name: Tena Yang Visit Number: [id number] Discharge Date: ATTENTION: The Clinical Documentation Specialists (CDI) and [facility] Coding Staff appreciate your assistance in clarifying documentation. Please respond to the clarification below the line at the bottom and electronically sign. The CDI & [facility] Coding staff will review the response and follow-up if needed. Please note: Queries are made part of the Legal Health Record. If you have any questions, please contact the author of this message via ITS. Dr. Jose Haney Asthma with acute exacerbation is documented in your progress note. History/risk factors: 68 year old female presents to the ED for shortness of breath. Clinical Indicators: Radiology: CXR interstitial and hazy opacities throughout the lungs, suggestive of pulmonary edema and pulmonary vasculature congestion. Component of infectious/inflammatory process is not excluded. Vital Signs: 184/110 82 97.5 18 97% ra Other Clinical Indicators: Treatment: Duonebs; Zithromax, Pulmicort, Robitussin; Singulair , Solumedrol In your professional opinion, can you please further specify the following, if known? Severity Mild intermittent Mild persistent Moderate persistent Severe persistent Other, please specify ____ Unable to determine Form or Type Cough variant Childhood Exercise induced bronchospasm Extrinsic allergic Idiosyncratic Intrinsic nonallergic Late-onset Mixed Other, please specify____ Unable to determine (Last Revision: July 2017) MTDD
--- NOTE | 2018-12-20 08:51 | P.PN ---
Subjective Principal diagnosis: This is a continue progress note a 68-year-old white female who is admitted for acute tracheal bronchitis and COPD. She feels much better after having an appropriate night sleep. However, they are exterminating/fumigating her home because of bed bug infestation. Otherwise no new voiding difficulties. No sign ificant nausea, vomiting or diarrhea. She seems to be tolerating diet better today. Decrease steroid dosing today. Otherwise, she is having difficulty transitioning back to home related to bedbug infestation. We will get merchandise planner/case management for possible placement at a relative's home versus ECF. She overall seems to be doing much better as far as her respiratory status. Objective - Vital Signs Vital signs: Vital Signs Temp 97.6 F 12/20/18 07:00 Pulse 74 12/20/18 08:25 Resp 16 12/20/18 07:00 BP 142/77 12/20/18 07:00 Pulse Ox 98 12/20/18 08:10 Intake & Output 12/19/18 12/20/18 12/20/18 18:59 06:59 18:59 Intake Total 240 540 Balance 240 540 Intake: Oral 240 540 Other: Voiding Method Toilet # Voids 1 - Constitutional General appearance: Present: obese - EENT Eyes: Absent: abnormal pupil - Neck Neck: Absent: lymphadenopathy - Respiratory Respiratory: bilateral: diminished - Cardiovascular Rhythm: regular Heart sounds: normal: S1, S2 Abnormal Heart Sounds: Absent: S3 Gallop - Gastrointestinal General gastrointestinal: Present: soft. Absent: tenderness - Neurologic Neurologic: Present: CNII-XII intact - Musculoskeletal Musculoskeletal: Present: generalized weakness - Labs CBC & Chem 7: 12/20/18 06:42 12/20/18 06:42 Labs: Abnormal Lab Results - Last 24 Hours (Table) 12/18/18 12/19/18 12/19/18 Range/Units 06:36 11:14 17:09 WBC (3.8-10.6) k/uL Sodium (137-145) mmol/L Potassium (3.5-5.1) mmol/L BUN (7-17) mg/dL Glucose (74-99) mg/dL POC Glucose (mg/dL) 366 H 332 H (75-99) mg/dL Cat Dander/Epith Allerg 5.70 H (<0.35) kU/L Dog Dander Allerg IgG 0.52 H (<0.35) kU/L 12/19/18 12/20/18 12/20/18 Range/Units 20:51 06:42 06:42 WBC 14.2 H (3.8-10.6) k/uL Sodium 136 L (137-145) mmol/L Potassium 5.2 H (3.5-5.1) mmol/L BUN 23 H (7-17) mg/dL Glucose 255 H (74-99) mg/dL POC Glucose (mg/dL) 395 H (75-99) mg/dL Cat Dander/Epith Allerg (<0.35) kU/L Dog Dander Allerg IgG (<0.35) kU/L 12/20/18 Range/Units 06:52 WBC (3.8-10.6) k/uL Sodium (137-145) mmol/L Potassium (3.5-5.1) mmol/L BUN (7-17) mg/dL Glucose (74-99) mg/dL POC Glucose (mg/dL) 243 H (75-99) mg/dL Cat Dander/Epith Allerg (<0.35) kU/L Dog Dander Allerg IgG (<0.35) kU/L Microbiology - Last 24 Hours (Table) 12/16/18 23:12 Blood Culture - Preliminary Blood No Growth after 72 hours Assessment and Plan (1) Acute exacerbation of chronic obstructive pulmonary disease Current Visit: Yes Status: Acute Code(s): J44.1 - CHRONIC OBSTRUCTIVE PULMONARY DISEASE W (ACUTE) EXACERBATION SNOMED Code(s): 941339095 (2) Exertional dyspnea Current Visit: Yes Status: Acute Code(s): R06.09 - OTHER FORMS OF DYSPNEA SNOMED Code(s): 04931119 (3) Failure of outpatient treatment Current Visit: Yes Status: Acute Code(s): Z78.9 - OTHER SPECIFIED HEALTH STATUS SNOMED Code(s): 228102927 (4) Asthma Current Visit: No Status: Acute Code(s): J45.909 - UNSPECIFIED ASTHMA, UNCOMPLICATED SNOMED Code(s): 611683996 (5) Diabetes Current Visit: No Status: Acute Code(s): E11.9 - TYPE 2 DIABETES MELLITUS WITHOUT COMPLICATIONS SNOMED Code(s): 87320122 (6) GERD (gastroesophageal reflux disease) Current Visit: No Status: Acute Code(s): K21.9 - GASTRO-ESOPHAGEAL REFLUX DISEASE WITHOUT ESOPHAGITIS SNOMED Code(s): 026062988 Plan: Continue jazmin Bolivar. Consult discharge planning for possible placement. Again, history of bedbug infestation at her current home. See orders otherwise. Dr. Vu's group will covering for the weekend.
[2018-12-20] MEDS: ALPRAZolam 1 MG TAB PO PRN ×2 (09:29→15:03)
[2018-12-20] MEDS: ONDANSETRON 4 MG TAB PO PRN (09:29)
[2018-12-20 11:13] LABS: Glucose,Whole Blood 335 mg/dL (75-99)
[2018-12-20] MEDS: HYDROcodone/APAP 7.5-325MG 1 EACH TAB PO PRN ×2 (11:35→15:40)
--- NOTE | 2018-12-20 13:57 | PN ---
PROGRESS NOTE She was seen on 12/20/2018. She has been hemodynamically stable. She is less short of breath, but continues to have shortness of breath on minimal exertion. She feels weak. PHYSICAL EXAMINATION: On physical examination, her blood pressure is 142/77, respiratory rate is 16, pulse rate of 71, temperature 97.6, O2 saturation on room air is 98%. HEENT is unremarkable. Chest reveals decreased breath sounds with prolonged exhalation. Cardiovascular system reveals an S1, S2. Abdomen is soft. There is 1+ edema. White count is 14.2, hemoglobin of 11.8, sodium 136, potassium 5.2, chloride 98, bicarb 27, BUN 23, creatinine of 0.9. IMPRESSION AT THIS TIME: 1. Severe persistent asthma with acute exacerbation. 2. 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 3. Possible hypersensitivity pneumonitis. Increase activity level. Continue her on azithromycin, aerosolized steroids, bronchodilators, leukotriene receptor antagonist and high-dose oral steroids. She may need a slow steroid taper. Follow her electrolytes. Depending on how she does we should make further changes to her care. MMODL / IJN: [id number] /
[2018-12-20 16:39] LABS: Glucose,Whole Blood 336 mg/dL (75-99)
[2018-12-20 16:41] VITALS: PULSE 72
[2018-12-24 01:53] LABS: Alternaria Alternata IgG 5.2 mcg/mL (< 13.6); Aspergillus fumigatus IgG Not detected (Not detected); Aureobasidium pullulans IgG 3.8 mcg/mL (< 13.6); Cladosporium herbarium IgG 7.5 mcg/mL (< 14.7); Phoma ssp. IgG 5.1 mcg/mL (< 6.6); Saccaharomospora viridis Not detected (Not detected); Saccaharopoly. rectivirgula Not detected (Not detected)
== END 2018-12-20 17:44 | disposition home or self-care (01) | DRG 191 ==
LOC: EC 22:38 → 4SSUR 12-17 00:45 → INTOOBSV 12-17 00:45 → OBSVTOIN 12-19 09:23
PROVIDERS: ADMIT Family Medicine; ATTEND Family Medicine
DX: J44.0 Chronic obstructive pulmonary disease with (acute) lower respiratory infection (principal); J45.51 Severe persistent asthma with (acute) exacerbation; Z68.42 Body mass index [BMI] 45.0-49.9, adult; J67.9 Hypersensitivity pneumonitis due to unspecified organic dust; J44.1 Chronic obstructive pulmonary disease with (acute) exacerbation; J20.9 Acute bronchitis, unspecified; F32.9 Major depressive disorder, single episode, unspecified; F40.240 Claustrophobia; G25.81 Restless legs syndrome; G47.00 Insomnia, unspecified; I10 Essential (primary) hypertension; E66.01 Morbid (severe) obesity due to excess calories; E11.9 Type 2 diabetes mellitus without complications; E83.42 Hypomagnesemia; K21.9 Gastro-esophageal reflux disease without esophagitis; K58.9 Irritable bowel syndrome, unspecified; M06.9 Rheumatoid arthritis, unspecified; Z79.82 Long term (current) use of aspirin; Z79.84 Long term (current) use of oral hypoglycemic drugs; Z79.899 Other long term (current) drug therapy; Z83.3 Family history of diabetes mellitus; Z90.710 Acquired absence of both cervix and uterus; Z88.5 Allergy status to narcotic agent; Z88.0 Allergy status to penicillin; Z91.041 Radiographic dye allergy status; Z91.040 Latex allergy status
CPT/HCPCS: 36415; 71046; 80053; 82550; 82785; 83735; 83880; 84484; 85025; 85027; 85379; 85610; 85730; 86001; 86003; 86606; 86609; 87040; 93005; 94640; 94760; 96365; 96375; 99291

== ENCOUNTER 2019-02-17 13:42 | Emergency (ER) | payer MEDICARE, OTHER ==
[2019-02-17 13:47] VITALS: TEMP 98.5
[2019-02-17] MEDS ORDERED: IPRATROPIUM-ALBUTEROL 3 ML NEB INHALATION STA (14:01)
--- NOTE | 2019-02-17 14:14 | XR ---
EXAMINATION TYPE: XR chest 2V DATE OF EXAM: 02/17/2019 COMPARISON: 12/16/2018 HISTORY: Shortness of breath TECHNIQUE: Frontal and lateral views of the chest are obtained. FINDINGS: Scattered senescent parenchymal changes noted. Hyperinflation compatible with COPD. No evidence for infiltrate. No evidence for atelectasis. Heart size is stable. Mediastinal structures are stable and grossly unremarkable. No evidence for hilar prominence. Degenerative changes dorsal spine. IMPRESSION: 1. No evidence for acute pulmonary disease.
--- NOTE | 2019-02-17 14:17 | ED ---
URI HPI - General Source: patient, RN notes reviewed Mode of arrival: ambulatory Limitations: no limitations <Dami Chandler - Last Filed: 02/17/19 14:46> <Dhaval Kirkland - Last Filed: 02/17/19 16:33> - General Chief Complaint: Upper Respiratory Infection Stated Complaint: SOB/poss pneumonia Time Seen by Provider: 02/17/19 13:51 - History of Present Illness Initial Comments: This a 68-year-old female presents emergency Department chief complaint cough 2 weeks. Patient states that she has underlying COPD and states that she has a slightly productive cough. She has been doing DuoNeb treatments at home. She denies any current chest pain. She doesn't that she has some intermittent shortness breath though she does have chronic shortness of breath. Patient denies fever, chills, sore throat. Patient does admit that she's had some mild nasal congestion. Patient contacted PCP who recommended to go to emergency department for chest x-ray. (Dami Chandler) - Related Data Home Medications Medication Instructions Recorded Confirmed glipiZIDE [Glucotrol XL] 5 mg PO DAILY 09/21/14 12/16/18 Oxybutynin Chloride [Ditropan] 5 mg PO BID 09/23/14 12/16/18 metFORMIN HCL 1,000 mg PO BID 09/23/14 12/16/18 ALPRAZolam [Xanax] 1 mg PO TID PRN 02/13/17 12/16/18 Losartan Potassium 50 mg PO DAILY 02/13/17 12/16/18 Pantoprazole [Protonix] 40 mg PO DAILY 02/13/17 12/16/18 Sucralfate [Carafate] 1 gm PO BID 02/13/17 12/16/18 Diltiazem HCl [Cartia Xt] 180 mg PO DAILY 02/01/18 12/16/18 Acetaminophen [Tylenol Arthritis] 650 mg PO Q6H PRN 12/16/18 12/16/18 Ascorbic Acid [Vitamin C] 1,000 mg PO DAILY 12/16/18 12/16/18 Aspirin EC [Ecotrin Low Dose] 81 mg PO DAILY 12/16/18 12/16/18 Atorvastatin [Lipitor] 20 mg PO HS 12/16/18 12/16/18 FLUoxetine HCL [PROzac] 40 mg PO DAILY 12/16/18 12/16/18 HYDROcodone/APAP 7.5-325MG [[place] 1 tab PO TID PRN 12/16/18 12/16/18 7.5-325] Naproxen [Naprosyn] 500 mg PO BID 12/16/18 12/16/18 Ondansetron HCl [Zofran] 4 mg PO TID PRN 12/16/18 12/16/18 Rgo-Vrhd-Mieds Acid 1 cap PO DAILY 12/16/18 12/16/18 [-U Capsule (formulary)] Previous Rx's Medication Instructions Recorded Albuterol Inhaler [Ventolin Hfa 1 - 2 puff INHALATION RT-Q6H PRN 02/08/18 Inhaler] #1 inhaler Albuterol Nebulized [Ventolin 2.5 mg INHALATION RT-QID PRN #100 02/08/18 Nebulized] nebu Azithromycin [Zithromax] 500 mg PO DAILY #3 tab 12/20/18 Azithromycin [Zithromax Z-pack] 0 mg PO DIRECTED #1 pack 02/17/19 CHLORPHEN-HYDROcod 8-10mg/5ml 5 ml PO Q12HR PRN 3 Days #30 ml 02/17/19 [Tussionex] predniSONE 50 mg PO DAILY #5 tab 02/17/19 Allergies Allergy/AdvReac Type Severity Reaction Status Date / Time codeine Allergy Nausea & Verified 02/17/19 13:46 Vomiting Iodinated Contrast Media Allergy Unknown Verified 02/17/19 13:46 latex Allergy Rash/Hives Verified 02/17/19 13:46 Penicillins Allergy Anaphylaxis Verified 02/17/19 13:46 Review of Systems ROS Other: All systems not noted in ROS Statement are negative. <Dami Chandler - Last Filed: 02/17/19 14:46> ROS Other: All systems not noted in ROS Statement are negative. <Dhaval Kirkland - Last Filed: 02/17/19 16:33> ROS Statement: Those systems with pertinent positive or pertinent negative responses have been documented in the HPI. Past Medical History Past Medical History: Asthma, Diabetes Mellitus, GERD/Reflux, Hypertension, Osteoarthritis (OA), Rheumatoid Arthritis (RA) Additional Past Medical History / Comment(s): DDD, HEMORRHOIDS,HIATAL HERNIA, IBS, POOR CIRCULATION, RLS History of Any Multi-Drug Resistant Organisms: ESBL Date of last positivie culture/infection: 09/12/15 MDRO Source:: urine e. coli Past Surgical History: Hysterectomy, Orthopedic Surgery, Tubal Ligation Additional Past Surgical History / Comment(s): RT KNEE CAP SX Past Anesthesia/Blood Transfusion Reactions: No Reported Reaction Additional Past Anesthesia/Blood Transfusion Reaction / Comment(s): CLAUSTERPHOBIA Past Psychological History: Anxiety, Depression Smoking Status: Never smoker Past Alcohol Use History: None Reported Past Drug Use History: None Reported - Past Family History Father Family Medical History: Diabetes Mellitus Mother Family Medical History: GERD/Reflux Additional Family Medical History / Comment(s): FEMALE CANCER Sister(s) Family Medical History: Cancer <Dami Chandler - Last Filed: 02/17/19 14:46> General Exam Limitations: no limitations General appearance: alert, in no apparent distress Head exam: Present: atraumatic, normocephalic, normal inspection Eye exam: Present: normal appearance, PERRL, EOMI. Absent: scleral icterus, conjunctival injection, periorbital swelling ENT exam: Present: normal exam, normal oropharynx, mucous membranes moist Neck exam: Present: normal inspection, full ROM. Absent: tenderness, meningismus, lymphadenopathy Respiratory exam: Present: wheezes (Mild), decreased breath sounds. Absent: normal lung sounds bilaterally, respiratory distress, rales, rhonchi, stridor Cardiovascular Exam: Present: regular rate, normal rhythm, normal heart sounds. Absent: systolic murmur, diastolic murmur, rubs, gallop, clicks <Dami Chandler - Last Filed: 02/17/19 14:46> Course <Dhaval Kirkland - Last Filed: 02/17/19 16:33> Vital Signs 02/17/19 02/17/19 02/17/19 13:43 14:14 14:22 Temperature 98.5 F Pulse Rate 82 82 88 Respiratory 22 Rate Blood Pressure 181/85 O2 Sat by Pulse 96 Oximetry 02/17/19 02/17/19 14:53 14:54 Temperature Pulse Rate 80 Respiratory 18 20 Rate Blood Pressure 143/84 O2 Sat by Pulse 97 Oximetry - Reevaluation(s) Reevaluation #1: 02/17/19 16:32 PA supervision: I proceeded [id number] evaluation the patient did discuss the findings with her. Patient did present with shortness of breath. The presentation consistent with exacerbation of the same. I do agree with the assessment and plan. 02/17/19 16:33 Note I did review the imaging and report. I do agree with the assessment and plan (Dhaval Kirkland) Medical Decision Making <Dami Chandler - Last Filed: 02/17/19 14:46> - Medical Decision Making Chest x-rays unremarkable. Patient has had a cough for 2 weeks related to her COPD. Patient we treated with azithromycin, prednisone. Patient be given cough suppressant this time follow-up with Dr. Ravi return parameters were discussed. (Dami Chandler) Disposition Is patient prescribed a controlled substance at d/c from ED?: Yes When asked, does pt state using other controlled substances?: Yes If prescribed controlled substance>3 days was MAPS reviewed?: Prescribed <3 Days If opioid is for acute pain is fill amount 7 days or less?: Yes If Rx opioid, was Start Talking consent form obtained?: Yes Time of Disposition: 14:48 <Dami Chandler - Last Filed: 02/17/19 14:46> <Dhaval Kirkland - Last Filed: 02/17/19 16:33> Clinical Impression: COPD exacerbation, Acute upper respiratory infection Disposition: HOME SELF-CARE Condition: Stable Instructions (If sedation given, give patient instructions): Upper Respiratory Infection (ED) Additional Instructions: Please return to the Emergency Department if symptoms worsen or any other concerns. Prescriptions: predniSONE 50 mg PO DAILY #5 tab CHLORPHEN-HYDROcod 8-10mg/5ml [Tussionex] 5 ml PO Q12HR PRN 3 Days #30 ml PRN Reason: Cough Azithromycin [Zithromax Z-pack] 0 mg PO DIRECTED #1 pack Referrals: Quincy Ravi MD [Primary Care Provider] - 1-2 days
[2019-02-17 14:54] VITALS: BP 143/84; PULSE 80; RESP 20
== END 2019-02-17 15:10 | disposition home or self-care (01) ==
LOC: EC 13:42
DX: J44.1 Chronic obstructive pulmonary disease with (acute) exacerbation (principal); J06.9 Acute upper respiratory infection, unspecified; E11.9 Type 2 diabetes mellitus without complications; K21.9 Gastro-esophageal reflux disease without esophagitis; I10 Essential (primary) hypertension; M19.90 Unspecified osteoarthritis, unspecified site; M06.9 Rheumatoid arthritis, unspecified; K58.9 Irritable bowel syndrome, unspecified; G25.81 Restless legs syndrome; F32.9 Major depressive disorder, single episode, unspecified; F41.9 Anxiety disorder, unspecified; Z88.0 Allergy status to penicillin; Z88.5 Allergy status to narcotic agent; Z91.040 Latex allergy status; Z91.041 Radiographic dye allergy status; Z79.1 Long term (current) use of non-steroidal anti-inflammatories (NSAID); Z79.82 Long term (current) use of aspirin; Z79.84 Long term (current) use of oral hypoglycemic drugs; Z79.899 Other long term (current) drug therapy
CPT/HCPCS: 71046; 94640; 99285

== ENCOUNTER 2023-06-01 10:11 | Emergency (ER) | payer MEDICARE, OTHER ==
[2023-06-01] MEDS: ACETAMINOPHEN TAB 325 MG TAB PO STA (10:38)
--- NOTE | 2023-06-01 10:44 | ED ---
Fall HPI - General Chief Complaint: Fall Stated Complaint: Fall Time Seen by Provider: 06/01/23 10:43 Source: patient, EMS, RN notes reviewed Mode of arrival: EMS - History of Present Illness Initial Comments: Patient is a 72-year-old female presented to ER with chief complaint of a fall. Patient states she tripped and fell. Denies loss of consciousness, head injury, blood thinner use, neck pain. Patient is endorsing right shoulder pain. She states that her right shoulder. Endorses mild paresthesias. She also is reporting left knee pain but states that she has " everything hurts as she has arthritis". Denies any dizziness, lightheadedness, chest pain, shortness of breath prior to fall. - Related Data Home Medications Medication Instructions Recorded Confirmed glipiZIDE [Glucotrol XL] 5 mg PO DAILY 09/21/14 12/16/18 metFORMIN HCL [Glucophage] 1,000 mg PO BID 09/23/14 12/16/18 oxyBUTYnin chloride [Ditropan] 5 mg PO BID 09/23/14 12/16/18 ALPRAZolam [Xanax] 1 mg PO TID PRN 02/13/17 12/16/18 Losartan Potassium 50 mg PO DAILY 02/13/17 12/16/18 Pantoprazole [Protonix] 40 mg PO DAILY 02/13/17 12/16/18 Sucralfate [Carafate] 1 gm PO BID 02/13/17 12/16/18 dilTIAZem HCL [Cartia Xt] 180 mg PO DAILY 02/01/18 12/16/18 Acetaminophen [Tylenol Arthritis] 650 mg PO Q6H PRN 12/16/18 12/16/18 Ascorbic Acid [Vitamin C] 1,000 mg PO DAILY 12/16/18 12/16/18 Aspirin EC [Ecotrin Low Dose] 81 mg PO DAILY 12/16/18 12/16/18 Atorvastatin [Lipitor] 20 mg PO HS 12/16/18 12/16/18 FLUoxetine HCL [PROzac] 40 mg PO DAILY 12/16/18 12/16/18 HYDROcodone/APAP 7.5-325MG [[place] 1 tab PO TID PRN 12/16/18 12/16/18 7.5-325] Naproxen [Naprosyn] 500 mg PO BID 12/16/18 12/16/18 Dmh-Umve-Xmjwg Acid 1 cap PO DAILY 12/16/18 12/16/18 [-U Capsule (formulary)] ondansetron HCL [Zofran] 4 mg PO TID PRN 12/16/18 12/16/18 Previous Rx's Medication Instructions Recorded Albuterol Inhaler [Ventolin Hfa 1 - 2 puff INHALATION RT-Q6H PRN 02/08/18 Inhaler] #1 inhaler Albuterol Nebulized [Ventolin 2.5 mg INHALATION RT-QID PRN #100 02/08/18 Nebulized] nebu Azithromycin [Zithromax] 500 mg PO DAILY #3 tab 12/20/18 Azithromycin [Zithromax Z-pack (6 0 mg PO DIRECTED #1 pack 02/17/19 tabs)] CHLORPHEN-HYDROcod 8-10mg/5ml 5 ml PO Q12HR PRN 3 Days #30 ml 02/17/19 [Tussionex] predniSONE 50 mg PO DAILY #5 tab 02/17/19 Allergies Allergy/AdvReac Type Severity Reaction Status Date / Time codeine Allergy Nausea & Verified 06/01/23 10:16 Vomiting Iodinated Contrast Media Allergy Unknown Verified 06/01/23 10:16 latex Allergy Rash/Hives Verified 06/01/23 10:16 Penicillins Allergy Anaphylaxis Verified 06/01/23 10:16 Review of Systems ROS Statement: Those systems with pertinent positive or pertinent negative responses have been documented in the HPI. ROS Other: All systems not noted in ROS Statement are negative. Past Medical History Past Medical History: Asthma, Diabetes Mellitus, GERD/Reflux, Hypertension, Osteoarthritis (OA), Rheumatoid Arthritis (RA) Additional Past Medical History / Comment(s): DDD, HEMORRHOIDS,HIATAL HERNIA, IBS, POOR CIRCULATION, RLS History of Any Multi-Drug Resistant Organisms: ESBL Date of last positivie culture/infection: 09/12/15 MDRO Source:: urine e. coli Past Surgical History: Hysterectomy, Orthopedic Surgery, Tubal Ligation Additional Past Surgical History / Comment(s): RT KNEE CAP SX Past Anesthesia/Blood Transfusion Reactions: No Reported Reaction Additional Past Anesthesia/Blood Transfusion Reaction / Comment(s): CLAUSTERPHOBIA Past Psychological History: Anxiety, Depression Smoking Status: Never smoker Past Alcohol Use History: None Reported Past Drug Use History: None Reported - Past Family History Father Family Medical History: Diabetes Mellitus Mother Family Medical History: GERD/Reflux Additional Family Medical History / Comment(s): FEMALE CANCER Sister(s) Family Medical History: Cancer General Exam Limitations: no limitations General appearance: alert, in no apparent distress Head exam: Present: atraumatic, normocephalic, normal inspection Eye exam: Present: normal appearance, PERRL, EOMI. Absent: scleral icterus, conjunctival injection, periorbital swelling Pupils: Present: normal accommodation ENT exam: Present: normal exam, mucous membranes moist Neck exam: Present: normal inspection. Absent: tenderness, meningismus, lymphadenopathy Respiratory exam: Present: normal lung sounds bilaterally. Absent: respiratory distress, wheezes, rales, rhonchi, stridor Cardiovascular Exam: Present: regular rate, normal rhythm, normal heart sounds. Absent: systolic murmur, diastolic murmur, rubs, gallop, clicks Extremities exam: Present: normal inspection, full ROM, tenderness (Tenderness to proximal right humerus. 2+ right radial pulse. Sensation intact. Bilateral lower extremities neurovascularly intact.), normal capillary refill. Absent: pedal edema, joint swelling, calf tenderness Neurological exam: Present: alert, oriented X3, CN II-XII intact Psychiatric exam: Present: normal affect, normal mood Skin exam: Present: warm, dry, intact, normal color. Absent: rash Course Vital Signs 06/01/23 06/01/23 06/01/23 10:17 11:16 12:12 Temperature 98.3 F 98.1 F 98.2 F Pulse Rate 76 73 70 Respiratory 18 18 18 Rate Blood Pressure 151/86 141/76 138/79 O2 Sat by Pulse 97 98 98 Oximetry Medical Decision Making - Medical Decision Making Was pt. sent in by a medical professional or institution (, PA, SUPERVISOR J[employer]EL[employer]PARTMENT, urgent care, hospital, or usp...) When possible be specific @ -No Did you speak to anyone other than the patient for history (EMS, parent, family, police, friend...)? What history was obtained from this source @ -No Did you review nursing and triage notes (agree or disagree)? Why? @ -I reviewed and agree with nursing and triage notes Were old charts reviewed (outside hosp., previous admission, EMS record, old EKG, old radiological studies, urgent care reports/EKG's, usp records)? Report findings @ -No old charts were reviewed Differential Diagnosis (chest pain, altered mental status, abdominal pain women, abdominal pain men, vaginal bleeding, weakness, fever, dyspnea, syncope, headache, dizziness, GI bleed, back pain, seizure, CVA, palpatations, mental health, musculoskeletal)? @ -Differential Musculoskeletal: Muscular strain, contusion, ligament sprain, fracture, arthritis, septic arthritis, bursitis, cellulitis, muscle spasm, nerve compression, DVT, arterial occlusion, herpes zoster, electrolyte abnormality, tumor.... This is not meant to be in all inclusive list EKG interpreted by me (3pts min.). @ -None X-rays interpreted by me (1pt min.). @ -Right shoulder x-ray significant for a proximal right humerus fracture with displacement and shortening. Left knee x-ray shows tricompartmental osteoarthritis. CT interpreted by me (1pt min.). @ -CT brain C-spine interpreted by me shows no acute process. U/S interpreted by me (1pt. min.). @ -None done What testing was considered but not performed or refused? (CT, X-rays, U/S, labs)? Why? @ -None What meds were considered but not given or refused? Why? @ -None Did you discuss the management of the patient with other professionals (professionals i.e. , PA, [employer], lab, RT, psych nurse, transition social worker, fans clerk, teacher, security officer supervisor, rn case manager hospice)? Give summary @ -No Was smoking cessation discussed for >3mins.? @ -No Was critical care preformed (if so, how long)? @ -No Were there social determinants of health that impacted care today? How? (Homelessness, low income, unemployed, alcoholism, drug addiction, transportation, low edu. Level, literacy, decrease access to med. care, nursing home, rehab)? @ -No Was there de-escalation of care discussed even if they declined (Discuss DNR or withdrawal of care, Hospice)? DNR status @ -No What co-morbidities impacted this encounter? (DM, HTN, Smoking, COPD, CAD, Cancer, CVA, ARF, Chemo, Hep., AIDS, mental health diagnosis, sleep apnea, morbid obesity)? @ -Obese Was patient admitted / discharged? Hospital course, mention meds given and route, prescriptions, significant lab abnormalities, going to OR and other pertinent info. @ -Discharge. Patient is a 72-year-old female presented to ER with a chief complaint of a fall. History and physical exam were completed. Vitals stable. Patient no signs of acute distress. Patient's right upper extremity neurovascularly intact. No acute neurological findings on exam. Patient was mildly tender to left knee. X-rays of left knee negative for acute process. Patient denied loss of consciousness or blood thinner use. Patient is unsure of head injury. CT brain C-spine interpreted by me shows no acute process. X- rays of right shoulder show a proximal humerus fracture. Patient received Tylenol and Toradol for pain control in the ER. Patient reports she has prescribed [place] at home for chronic pain. Patient placed in a sling. Advised to continue taking [id number] Tylenol and Motrin for pain control. Advised her to follow-up with orthopedics in the next 1 to 2 days. Referral given. Vu alcantara be discharged stable condition with follow-up to orthopedics. Return parameters were discussed. Patient and son, at bedside expressed understanding and agreement with care plan. Undiagnosed new problem with uncertain prognosis? @ -No Drug Therapy requiring intensive monitoring for toxicity (Heparin, Nitro, Insulin, Cardizem)? @ -No Were any procedures done? @ -No Diagnosis/symptom? @ -Right proximal humerus fracture/fall Acute, or Chronic, or Acute on Chronic? @ -Acute Uncomplicated (without systemic symptoms) or Complicated (systemic symptoms)? @ -Uncomplicated Side effects of treatment? @ -No Exacerbation, Progression, or Severe Exacerbation? @ -No Poses a threat to life or bodily function? How? (Chest pain, [place], [place], pneumonia, PE, COPD, DKA, ARF, appy, cholecystitis, CVA, Diverticulitis, Homicidal, Suicidal, threat to staff... and all critical care pts) @ -No - Radiology Data Radiology results: report reviewed, image reviewed Disposition Clinical Impression: Fall, Proximal humerus fracture Disposition: HOME SELF-CARE Condition: Stable Instructions (If sedation given, give patient instructions): Fall Prevention (ED) Additional Instructions: Please follow-up with orthopedics in the next 1 to 2 days. Return to ER for any new or worsening symptoms. Is patient prescribed a controlled substance at d/c from ED?: No Referrals: Quincy Ravi MD [Primary Care Provider] - 1-2 days Gil Morales MD [STAFF PHYSICIAN] - 1-2 days Time of Disposition: 11:43
[2023-06-01 11:01] VITALS: RESP 18
--- NOTE | 2023-06-01 11:26 | CT ---
EXAMINATION TYPE: CT brain cspine wo con CT DLP: 1647.5 mGycm, Automated exposure control for dose reduction was used. DATE OF EXAM: 06/01/2023 11:16 AM COMPARISON: 02/01/2018 CLINICAL INDICATION:Female, 72 years old with history of fall; Fall TECHNIQUE: Brain: Multiple axial CT images of the brain were obtained without IV contrast. Cspine: Axial CT images from the skull base to the inferior aspect of T2 we obtained without intraven ous contrast. Coronal and sagittal reformatted images were also reviewed. FINDINGS: Brain: Extra-axial spaces: No abnormal extra-axial fluid collections. Ventricular system: Within normal limits Cerebral parenchyma: No acute intraparenchymal hemorrhage or mass effect. The ordonez-white junction is well differentiated. Cerebellum: Unremarkable. Mass effect: No evidence of midline shift. Intracranial vasculature: Atherosclerotic calcifications of the intracranial vessels. Soft tissues: Normal. Calvarium/osseous structures: No depressed skull fracture. Paranasal sinuses and mastoid air cells: Clear. Visualized orbits: Orbital contents are intact. Cervical spine: Fracture: None. Osseous structures: Multilevel degenerative disc disease changes with endplate spurring and disc oste ophyte complex's. Vertebral alignment: Within normal limits. Spinal canal/Neural Foramina: No evidence of significant spinal canal narrowing. No evidence for sign ificant neural foraminal stenosis. Neck soft tissues: Prevertebral soft tissues are within normal limits. Other: The airway is patent. The lung apices are clear. Atherosclerosis of the carotid bifurcations. IMPRESSION: 1. No acute intracranial process. 2. Nonspecific white matter changes, likely secondary to chronic small vessel ischemic disease. 3. No evidence of cervical spine fracture. 4. Mild to moderate multilevel degenerative disc disease.
--- NOTE | 2023-06-01 11:28 | XR ---
EXAMINATION TYPE: XR knee complete LT DATE OF EXAM: 06/01/2023 11:18 AM CLINICAL INDICATION:Female, 72 years old with history of pain after fall; [facility] COMPARISON: 08/23/2010 TECHNIQUE: XR knee complete LT; examined in Frontal, lateral and oblique projections. FINDINGS: No evidence of any acute osseous pathology, soft tissue swelling, or joint effusion is no yael. Tricompartmental osteophyte formation involving the femoral condyles, tibial plateau and patella . Mild joint space narrowing. IMPRESSION: 1. No acute osseous pathology. 2. Severe tricompartmental osteoarthritic changes.
--- NOTE | 2023-06-01 11:30 | XR ---
EXAMINATION TYPE: XR shoulder limited RT DATE OF EXAM: 06/01/2023 11:18 AM CLINICAL INDICATION:Female, 72 years old with history of pain after fall; H COMPARISON: None TECHNIQUE: XR shoulder limited RT; examined in AP, internally rotated and scapular Y projections. FINDINGS/IMPRESSION: Proximal right humerus fracture with displacement and shortening. Remainder of the chest and other os seous structures are intact.
[2023-06-01] MEDS: KETOROLAC 15 MG/ML 1 ML VIAL IM STA (11:45)
[2023-06-01 12:37] VITALS: BP 138/79; PULSE 70; TEMP 98.2
== END 2023-06-01 12:20 | disposition home or self-care (01) ==
LOC: EC 10:11
DX: S42.202A Unspecified fracture of upper end of left humerus, initial encounter for closed fracture (principal); I10 Essential (primary) hypertension; E11.9 Type 2 diabetes mellitus without complications; F41.9 Anxiety disorder, unspecified; J45.909 Unspecified asthma, uncomplicated; K21.9 Gastro-esophageal reflux disease without esophagitis; M19.90 Unspecified osteoarthritis, unspecified site; Z79.84 Long term (current) use of oral hypoglycemic drugs; Z79.82 Long term (current) use of aspirin; Z88.0 Allergy status to penicillin; Z91.040 Latex allergy status; Z91.041 Radiographic dye allergy status; W01.0XXA Fall on same level from slipping, tripping and stumbling without subsequent striking against object, initial encounter
CPT/HCPCS: 73020; 73562; 72125; 70450; 99284; 96372; J1885

== ENCOUNTER 2023-06-08 05:35 | Day surgery (SDC) | payer MEDICARE, OTHER ==
[2023-06-05 16:10] VITALS: BMI 43.9
--- NOTE | 2023-06-07 08:33 | P.HPOR ---
History of Present Illness H&P Date: 06/07/23 Chief Complaint: Right shoulder pain Patient is a 72-year-old female who presents after injuring her right shoulder on the 2023. She is at home when she tripped over her dog. She landed on the right shoulder. Initially she was seen in the emergency room and was placed in a sling. She denies previous injury. Normally she ambulates with a cane or walker. Review of Systems As per HPI Past Medical History Past Medical History: Asthma, Diabetes Mellitus, GERD/Reflux, Hypertension, Osteoarthritis (OA), Rheumatoid Arthritis (RA), Sleep Apnea/CPAP/BIPAP, Vascular Disorder Additional Past Medical History / Comment(s): DDD, HEMORRHOIDS,HIATAL HERNIA, IBS, POOR CIRCULATION, RLS,uses O2@ 2.5L NC ATC,urinary incontinence History of Any Multi-Drug Resistant Organisms: ESBL Date of last positivie culture/infection: 09/12/15 MDRO Source:: urine e. coli Past Surgical History: Hysterectomy, Orthopedic Surgery, Tubal Ligation Additional Past Surgical History / Comment(s): RT KNEE CAP SX Past Anesthesia/Blood Transfusion Reactions: No Reported Reaction Additional Past Anesthesia/Blood Transfusion Reaction / Comment(s): CLAUSTERPHOBIA. no hx blood tranfusion Smoking Status: Former smoker - Past Family History Father Family Medical History: Diabetes Mellitus Mother Family Medical History: GERD/Reflux Additional Family Medical History / Comment(s): FEMALE CANCER Sister(s) Family Medical History: Cancer Medications and Allergies Home Medications Medication Instructions Recorded Confirmed Type metFORMIN HCL [Glucophage] 1,000 mg PO BID 09/23/14 06/06/23 History oxyBUTYnin chloride [Ditropan] 10 mg PO DAILY 09/23/14 06/06/23 History ALPRAZolam [Xanax] 1 mg PO TID PRN 02/13/17 06/06/23 History Losartan Potassium 50 mg PO QAM 02/13/17 06/06/23 History Pantoprazole [Protonix] 40 mg PO QAM 02/13/17 06/06/23 History Albuterol Inhaler [Ventolin Hfa 1 - 2 puff INHALATION RT-Q6H PRN 02/08/18 06/06/23 Rx Inhaler] #1 inhaler Albuterol Nebulized [Ventolin 2.5 mg INHALATION RT-QID PRN #100 02/08/18 06/06/23 Rx Nebulized] nebu Acetaminophen [Tylenol Arthritis] 650 mg PO Q6H PRN 12/16/18 06/06/23 History Aspirin EC [Ecotrin Low Dose] 81 mg PO DAILY 12/16/18 06/06/23 History Atorvastatin [Lipitor] 20 mg PO HS 12/16/18 06/06/23 History FLUoxetine HCL [PROzac] 40 mg PO HS 12/16/18 06/06/23 History Naproxen [Naprosyn] 500 mg PO DAILY 12/16/18 06/06/23 History ondansetron HCL [Zofran] 4 mg PO TID PRN 12/16/18 06/06/23 History ARIPiprazole [Abilify] 10 mg PO BID 06/06/23 06/06/23 History Dapagliflozin Propanediol [Farxiga] 10 mg PO DAILY 06/06/23 06/06/23 History Docusate Sodium [Dok] 100 mg PO DAILY 06/06/23 06/06/23 History Ferrous Sulfate [Feosol] 325 mg PO DAILY 06/06/23 06/06/23 History Fluticasone Propionate [Flonase 1 spray EA NOSTRIL DAILY 06/06/23 06/06/23 History Allergy Relief] Gabapentin [Neurontin] 100 mg PO TID 06/06/23 06/06/23 History HYDROcodone/APAP 10-325MG [[place] 1 tab PO Q6HR PRN 06/06/23 06/06/23 History 10-325] Insulin Glargine [Lantus Vial] 38 unit SQ DAILY@1800 06/06/23 06/06/23 History Levothyroxine Sodium [Synthroid] 25 mcg PO QAM 06/06/23 06/06/23 History Phenazopyridine HCl [Pyridium] 200 mg PO TID 06/06/23 06/06/23 History Vit No.179/Iron/Folic 1 each PO DAILY 06/06/23 06/06/23 History [ Tablet] Sodium Chloride 0.65% Nasal [Deep 1 spray NASAL DAILY 06/06/23 06/06/23 History Sea (Saline)] buPROPion HCL [buPROPion HCL Xl] 150 mg PO QAM 06/06/23 06/06/23 History Allergies Allergy/AdvReac Type Severity Reaction Status Date / Time codeine Allergy Nausea & Verified 06/05/23 15:41 Vomiting Iodinated Contrast Media Allergy Unknown Verified 06/05/23 15:41 latex Allergy Rash/Hives Verified 06/05/23 15:41 Penicillins Allergy Anaphylaxis Verified 06/05/23 15:41 Physical Examination - Shoulder right Appearance: ecchymosis, swelling Tenderness with palpation: anterior, bicipital groove Pain: other (With any attempted range of motion) Results Patient is a well-developed well-nourished female proximal a 5 foot 2, 240 pounds of endomorphic habitus. HEENT exam is nonfocal, neck is supple. She has large anterior swelling and ecchymosis about the right shoulder. She's tender over the proximal years. She has limited motion secondary to pain. She is nontender but the right elbow and wrist. Her distal neurovascular exam appears intact in the right upper shoulder. - Diagnostic results Shoulder x-ray: image reviewed (2 views of the right shoulder obtained in the office show a displaced 3 part proximal humerus fracture.) Assessment and Plan Assessment: Displaced 3 part fracture right proximal humerus History of osteoporosis Plan: I talked with the patient at length regarding her condition and treatment options. At this point she opted to proceed with surgery. We'll plan to proceed with cemented right reversed total shoulder arthroplasty. Risks and benefits were discussed at length with him in terms.
[~2023-06-08 05:35] MED LIST changes: -CLINDAMYCIN 900 MG in DEXTROSE 5% IN WATER 50 ML IVPB ONE; +TRANEXAMIC 1,000 MG/100ML-NACL 1,000 MG in SALINE 1 100ML.BAG IVPB PRN
[2023-06-08] MEDS ORDERED: ONDANSETRON 4 MG/2 ML VIAL ONE (06:55)
[2023-06-08] MEDS: LACTATED RINGERS 1,000 ML IV ONE ×2 (07:01→09:22)
[2023-06-08] MEDS: ACETAMINOPHEN TAB 500 MG TAB PO PRN (07:03)
[2023-06-08] MEDS: MELOXICAM 7.5 MG TAB PO PRN (07:03)
[2023-06-08 07:04] LABS: Glucose,Whole Blood 155 mg/dL (70-110)
[2023-06-08] MEDS: ONDANSETRON 4 MG/2 ML VIAL IVP ONE (07:04)
[2023-06-08] MEDS: DEXAMETHASONE SOD PHOSPHATE 4 MG/ML 1 ML VIAL IVP ONE (07:05)
[2023-06-08] MEDS: MIDAZOLAM 2 MG/2 ML VIAL IVP ONE (07:07)
[2023-06-08] MEDS ORDERED: NEOSTIGMINE 1 MG/ML 10 ML VIAL ONE (07:32)
[2023-06-08] MEDS ORDERED: PHENYLEPHRINE 10 MG/ML VIAL ONE (07:32)
[2023-06-08] MEDS ORDERED: ROPIVACAINE 5 MG/ML 30 ML VIAL ONE (07:32)
[2023-06-08] MEDS ORDERED: LIDOCAINE 1% INJ 10MG/ML (20 ML MDV) ONE (07:32)
[2023-06-08] MEDS ORDERED: ROCURONIUM 10 MG/ML (5 ML VIAL) IV ONE (07:32)
[2023-06-08] MEDS ORDERED: TRANEXAMIC 1,000 MG/100ML-NACL PREMIX BAG ONE (07:32)
[2023-06-08] MEDS ORDERED: SUCCINYLCHOLINE CHLORIDE 200 MG/10 ML VIAL IV ONE (07:32)
[2023-06-08] MEDS ORDERED: GLYCOPYRROLATE 0.2 MG/ML 2 ML VIAL ONE (07:32)
[2023-06-08] MEDS ORDERED: PROPOFOL 10 MG/ML 20 ML VIAL IV ONE (07:32)
[2023-06-08] MEDS ORDERED: fentaNYL (PF) 50 MCG/ML 2 ML AMP ONE (07:32)
[2023-06-08] MEDS ORDERED: DEXAMETHASONE SOD PHOSPHATE 4 MG/ML 1 ML VIAL ONE (07:32)
--- NOTE | 2023-06-08 07:34 | P.ANPRN ---
Procedure Note - Anesthesia - Nerve Block Performed Right Interscalene Single Time Out Performed: Yes Date of Procedure: 06/08/23 Procedure Start Time: 07:06 Procedure Stop Time: 07:11 Location of Patient: PreOp Indication: Acute Post-Operative Pain, Analgesia, Requested by Surgeon Sedation Type: Sedate with meaningful contact maintained Preparation: Sterile Prep Position: Sitting Catheter: None Needle Types: Pajunk Needle Gauge: 21 Ultrasound used to visualize needle placement: Yes Ultrasound used to observe medication spread: Yes Injectate: 0.5% Ropivacaine (see comment for volume) (Ropiv 20ml+decadron 4mg) Blood Aspirated: No Pain Paresthesia on Injection Noted: No Resistance on Injection: Normal Image Stored and Saved: Yes Events: Uneventful and Well Tolerated
[2023-06-08] MEDS: ceFAZolin 1,000 MG in SODIUM CHLORIDE 0.9% 1,000 ML IRRIGATION ONE (08:15)
--- NOTE | 2023-06-08 10:01 | P.OP ---
Date of Procedure: 06/08/23 Preoperative Diagnosis: Right three-part displaced proximal humerus fracture Postoperative Diagnosis: Same Procedure(s) Performed: Right reverse total shoulder arthroplasty Implants: Depuy Delta Xtend size 10 cemented long stem humeral component, 38+3 articular surface, 3* mm standard glenosphere with standard baseplate. Anesthesia: [facility] Surgeon: Gil Morales Pathology: none sent Condition: stable Disposition: PACU Indications for Procedure: The patient is a 72-year-old female who presents after falling recently injuring her right shoulder. Upon evaluation she was noted have a significantly displaced right 3 part proximal humerus fracture. A discussion of the risks and benefits of operative intervention was made with the patient. Operative options were discussed including attempted open reduction and internal fixation versus reverse total shoulder arthroplasty. She opted to proceed with the reverse total shoulder arthroplasty. Specific risks of surgery to include infection, neurovascular injury, development of blood clots, possible tuberosity non union/malunion, possible instability, possible need for subsequent procedures was discussed. Informed consent was obtained. Operative Findings: As below Description of Procedure: The patient was brought to the operating room, and after induction of general anesthesia was placed in a beachchair position. The bony prominences were appropriately padded. The right upper extremity was prepped and draped in normal fashion. The bony outlines the coracoid process, distal clavicle, and acromion were outlined with a skin marker. A pulse centimeter deltopectoral incision was made lateral to the coracoid process. Skin was incised sharply. Subcutaneous tissues were divided bluntly. Electrocautery was used for hemostasis. The cephalic vein was identified and gently retracted laterally with the deltoid. The deltopectoral was bluntly developed. Subdeltoid adhesions were then released. The self-retaining retractor was placed. The co njoined tendon was retracted medially and the deltoid laterally. The biceps was identified. Its sheath was opened. A biceps tenotomy was performed along the remaining tendon did retract distally. The greater and lesser tuberosity fragments were and tagged with #2 Ethibond suture. The head was then exposed and removed. Attention was then paid towards preparing the glenoid. An anterior and posterior retractors were placed. The labrum was released from the 12-6 o'clock position. A small anterior bony Bankart lesion was noted. Remaining biceps was removed as well. A guidepin was placed in the inferior aspect of the glenoid with the guide slightly tilting inferior. The reamer was used down to a bleeding bony surface. The central peg hole was drilled. The standard baseplate was inserted with good purchase. Inferior, superior, and posterior locking screws the appropriate length were placed. Good purchase was obtained. The 38 mm standard glenosphere was inserted over a guidewire. This was fully seated. Care was taken to avoid any soft tissue interposition. Attention was then paid towards preparing the proximal humerus. The canal was reamed up to 10 mm. Trial reduction was obtained with a size 10 long stem utilizing the alignment clamp on the proximal humeral shaft. A 38+3 trial articular surface was placed. The shoulder was gently reduced. The shoulder was taken through range of motion. It was felt to be stable in flexion and extension with internal and external rotation. I felt there was adequate sikhism of soft tissue tension judging off the conjoined tendon. The shoulder was gently dislocated. The trial components were then removed. The final size 10 long stem cemented humeral stem along with a size 1 epiphysis was cemented in place pressurizing the canal. Once the cement had sufficiently hardened, trial reduction was then again obtained with a 38+3 articular surface. The shoulder was gently reduced. There was good rotational stability. The final 38 mm +3 articular surface was impacted. The shoulder again was gently reduced and taken through range of motion. Again it was felt to be stable in all planes. Pulsatile lavage was utilized. The tuberosities were reattached to each other and to the shaft with #2 Ethibond suture. The deltopectoral interval was closed with interrupted 2-0 Vicryl sutures. The skin was reapproximated with 3-0 subcuticular Prolene suture. Steri-Strips were applied. A sterile dressing was applied. A sling was placed. The patient was awoken from general anesthesia and transferred to recovery room in good condition. Blood loss was estimated at 150 mL. No complications were incurred. Sponge and needle counts were correct at the end the case. 2 nurses assisted during the major components of the case to include exposure, glenoid and humeral preparation, implantation, and closure.
[2023-06-08] MEDS ORDERED: HYDROcodone/APAP 5-325MG 1 EACH TAB PO PRN (10:09)
[2023-06-08 10:15] LABS: Glucose,Whole Blood 200 mg/dL (70-110)
--- NOTE | 2023-06-08 11:42 | XR ---
EXAMINATION TYPE: XR shoulder limited RT DATE OF EXAM: 06/08/2023 10:06 AM CLINICAL INDICATION:Female, 72 years old with history of post op; [facility] COMPARISON: 05/29/2023 TECHNIQUE: XR shoulder limited RT; examined in AP, internally rotated and scapular Y projections. FINDINGS: Shoulder arthroplasty with hardware intact. Subcutaneous lucencies compatible with recent surgery. Un changed fracture from 10/27/2023. Hardware appears in tact The remaining portions of the visualized c hest are unremarkable. IMPRESSION: Status post right shoulder arthroplasty with persistent humeral neck fracture visualized.
[2023-06-08 14:06] LABS: Glucose,Whole Blood 199 mg/dL (70-110)
[2023-06-08] MEDS: droPERidol 5 MG/2 ML VIAL IVP ONE (15:40)
[2023-06-08] MEDS ORDERED: ALPRAZolam 1 MG TAB PO PRN (19:05)
[2023-06-08] MEDS ORDERED: ALBUTEROL NEBULIZED 2.5 MG/3 ML INHALATION PRN ×2 (19:05→19:17)
[2023-06-08] MEDS: ONDANSETRON 4 MG/2 ML VIAL IVP PRN (19:13)
[2023-06-08] MEDS: HYDROmorphone 0.5 MG/0.5 ML SYRINGE IVP PRN (19:15)
[2023-06-08] MEDS ORDERED: ONDANSETRON 4 MG TAB PO PRN (19:17)
[2023-06-08] MEDS ORDERED: DEXTROSE 50% SYRINGE 50 ML IVP PRN ×2 (19:18)
[2023-06-08 20:44] LABS: Glucose,Whole Blood 193 mg/dL (70-110)
[2023-06-08] MEDS: HEPARIN SODIUM,PORCINE 5,000 UNIT/ML 1 ML VIAL SQ SCH (20:50)
[2023-06-08] MEDS: INSULIN ASPART (NovoLOG) 100 UNIT/ML VIAL SQ SCH (20:51)
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
[2023-06-08] MEDS ORDERED: ARIPiprazole 10 MG TAB PO SCH (21:00)
[2023-06-08] MEDS ORDERED: NON FORMULARY DRUG (Fluoxetine Hcl [Prozac] 40 MG Capsule) PO SCH (21:00)
[2023-06-08] MEDS ORDERED: NON FORMULARY DRUG (Metformin Hcl [Glucophage] 1,000 MG Tablet) PO SCH (21:00)
[2023-06-08] MEDS ORDERED: ATORVASTATIN 20 MG TAB PO SCH (21:00)
[2023-06-08] MEDS ORDERED: GABAPENTIN 100 MG CAP PO SCH (22:00)
[2023-06-08 23:26] VITALS: RESP 18
[2023-06-09 01:38] LABS: Anisocytosis Slight; Basophils % (A) 0 %; Eosinophils % (A) 0 %; HGB 9.8 gm/dL (11.4-16.0); Hypochromasia Slight; Lymphocytes % (A) 24 %; MCH 27.1 pg (25.0-35.0); MCHC 31.7 g/dL (31.0-37.0); MCV 85.7 fL (80.0-100.0); Mean Platelet Volume 7.1; Monocytes # (A) 0.5 k/uL (0-1.0); Monocytes % (A) 6 %; Neutrophils # (A) 5.6 k/uL (1.3-7.7); Neutrophils % (A) 68 %; Platelet Count 413 k/uL (150-450); RBC 3.62 m/uL (3.80-5.40); RDW 16.5 % (11.5-15.5); WBC 8.2 k/uL (3.8-10.6)
[2023-06-09 05:26] LABS: Glucose,Whole Blood 147 mg/dL (70-110)
[2023-06-09] MEDS: HYDROcodone/APAP 5-325MG 1 EACH TAB PO PRN (06:34)
[2023-06-09] MEDS: ASPIRIN 81 MG PO SCH (08:16)
[2023-06-09] MEDS: PRENATAL VIT-IRON-FOLIC ACID 1 EACH TABLET PO SCH (08:16)
[2023-06-09] MEDS: SODIUM CHLORIDE 0.65% NASAL SPRAY 44 ML BTL NASAL SCH (08:17)
[2023-06-09] MEDS ORDERED: buPROPion XL 150 MG TAB.ER.24H PO SCH (09:00)
[2023-06-09] MEDS ORDERED: LEVOTHYROXINE 25 MCG TAB PO SCH (09:00)
[2023-06-09] MEDS ORDERED: FERROUS SULFATE 325 MG TAB PO SCH (09:00)
[2023-06-09] MEDS ORDERED: DAPAGLIFLOZIN PROPANEDIOL 10 MG TABLET PO SCH (09:00)
[2023-06-09] MEDS ORDERED: DOCUSATE 100 MG CAP PO SCH (09:00)
[2023-06-09] MEDS ORDERED: PANTOPRAZOLE 40 MG TABLET PO SCH (09:00)
[2023-06-09] MEDS ORDERED: [UNRECOGNIZED DRUG - REMARK] EA NOSTRIL SCH (09:00)
[2023-06-09] MEDS ORDERED: LOSARTAN 50 MG TAB PO SCH (09:00)
[2023-06-09] MEDS ORDERED: oxyBUTYnin chloride 5 MG TAB PO SCH (09:00)
--- NOTE | 2023-06-09 09:03 | P.PN ---
Subjective Progress Note Date: 06/09/23 Principal diagnosis: Status post reverse right total shoulder arthroplasty Patient evaluated at bedside, she is resting comfortably. Pain is well- controlled. She denies any headache, lightheadedness, chest pain or shortness of breath. She has been urinating with no issues Objective - Vital Signs Vital signs: Vital Signs Temp 98.6 F 06/09/23 00:30 Pulse 102 H 06/09/23 00:30 Resp 18 06/09/23 00:30 BP 135/66 06/09/23 00:30 Pulse Ox 98 06/09/23 00:30 FiO2 Intake & Output 06/08/23 06/09/23 06/09/23 18:59 06:59 18:59 Intake Total 1501 Output Total 150 Balance 1351 Weight 106.9 kg Intake: IV 1501 Output: Estimated Blood Loss 150 Other: # Voids 2 2 - Exam Right upper extremity: Incision is clean, dry, and intact. There is minimal soft tissue swelling and ecchymosis surrounding the medial and lateral aspects of the incision. Calf is soft, no tenderness with palpation. Wrist extension, wrist flexion, elbow extension, elbow flexion intact. Sensory exam to light touch throughout the extremity is intact, radial and ulnar pulse are 2+ - Labs CBC & Chem 7: 06/09/23 01:30 Labs: Abnormal Lab Results - Last 24 Hours (Table) 06/08/23 06/08/23 06/08/23 Range/Units 10:13 14:03 20:42 RBC (3.80-5.40) m/uL Hgb (11.4-16.0) gm/dL Hct (34.0-46.0) % RDW (11.5-15.5) % POC Glucose (mg/dL) 200 H 199 H 193 H (70-110) mg/dL 06/09/23 06/09/23 Range/Units 01:30 05:25 RBC 3.62 L (3.80-5.40) m/uL Hgb 9.8 L (11.4-16.0) gm/dL Hct 31.0 L (34.0-46.0) % RDW 16.5 H (11.5-15.5) % POC Glucose (mg/dL) 147 H (70-110) mg/dL Assessment and Plan Assessment: Postoperative day #1 status post reverse right total shoulder arthroplasty Plan: Pain control, patient has [place] 10 mg / 325 mg at home DVT prophylaxis, she will increase aspirin 81 mg to twice a day for 2 to 3 weeks Wound care instructions were discussed, this to include showering Activity level instructions were discussed Medical recommendations appreciated Discharge planning: Patient stable for discharge home today Time with Patient: Less than 30
[2023-06-09] MEDS ORDERED: OXYBUTYNIN 10 MG TAB.ER.24 PO SCH (12:15)
[2023-06-09 12:18] LABS: Glucose,Whole Blood 242 mg/dL (70-110)
[2023-06-09] MEDS: PANTOPRAZOLE 40 MG TABLET PO SCH (12:20)
[2023-06-09] MEDS: FERROUS SULFATE 325 MG TAB PO SCH (12:20)
[2023-06-09] MEDS: GABAPENTIN 100 MG CAP PO SCH (12:21)
[2023-06-09] MEDS: DOCUSATE 100 MG CAP PO PRN (12:21)
[2023-06-09] MEDS: LOSARTAN 50 MG TAB PO SCH (12:21)
[2023-06-09] MEDS: DAPAGLIFLOZIN PROPANEDIOL 10 MG TABLET PO SCH (12:42)
[2023-06-09] MEDS: metFORMIN 500 MG TAB PO SCH (12:42)
[2023-06-09] MEDS: buPROPion XL 150 MG TAB.ER.24H PO SCH (12:42)
[2023-06-09] MEDS: ARIPiprazole 10 MG TAB PO SCH (12:42)
[2023-06-09] MEDS: oxyBUTYnin chloride 5 MG TAB PO SCH (12:45)
[2023-06-09] MEDS: ALPRAZolam 1 MG TAB PO PRN (13:05)
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
[2023-06-09 14:57] VITALS: BP 145/84; PULSE 77; TEMP 97.5
[2023-06-09] MEDS ORDERED: NON FORMULARY DRUG (Insulin Glargine 100 UNIT/ML Ml) SQ SCH (18:00)
[2023-06-09] MEDS ORDERED: ATORVASTATIN 20 MG TAB PO SCH (21:00)
[2023-06-09] MEDS ORDERED: FLUoxetine HCL 20 MG CAP PO SCH (21:00)
[2023-06-10] MEDS ORDERED: LEVOTHYROXINE 25 MCG TAB PO SCH (06:30)
--- NOTE | 2023-06-11 10:39 | P.DS ---
Providers Date of admission: 06/08/2023 Expected date of discharge: 06/09/23 Attending physician: Gil Morales Consults: 06/08/23 10:09 Consult Physician Routine Consulting Provider: Kel Key Consult Reason/Comments: medical management Do you want consulting provider notified?: Yes Primary care physician: Jean-Pierre Casillas MD Hospital Course: Date of admission: 06/08/2023 Date of discharge: 06/09/2023 Admission diagnosis: Status post reverse right total shoulder arthroplasty Discharge diagnosis: Same Attending physician: Dr. Morales Surgical procedures: Reverse right total shoulder arthroplasty Brief history: Patient is a 72-year-old female with a history of displaced and comminuted proximal right humerus fracture. At this point patient has failed conservative treatment measures and has opted to proceed with a elective reverse right total shoulder arthroplasty. Hospital course: Details of patient's surgery can be found in operative report. Patient tolerated the procedure well and was subsequently transported to orthopedic floor. Patient's orthopeidc and medical care was provided daily. Patient had daily laboratory tests performed for evaluation of overall blood counts. Patient had daily physical therapy to include strengthening range of motion as well as education with walker ambulation. Patient was treated with aspirin for their postoperative DVT prophylaxis during their inpatient stay. Patient was noted to have a relatively uneventful postoperative course. Patient reported satisfactory pain control with oral pain medications by postoperative day 0. Patient showed satisfactory progress with physical therapy. Patient moved steadily through the program and had no difficulty meeting the goals by postoperative day 1. Given patient's otherwise satisfactory course and having met physical therapy goals, plan is to discharge patient home on postoperative day 1. Discharge condition/disposition: Patient will be discharged home in stable con dition. Discharge medications: Instructions are given on resumption of patient's normal daily medications per primary care recommendation, in addition patient will be prescribed aspirin. Discharge instructions: 1. Wound care and infection precautions, keep incision dry and covered while showering, no lotions, creams, moisturizers. No soaking, tubs, pools, hottubs. Do not scrub over the incision. 2. Utilize arm sling 3. Ice and elevate when necessary. Do not exceed 20 minutes per hour with ice pack. 4. Utilize compression sleeve until seen at first follow up appointment. 5. Visiting nursing care. 7. Pain meds and anticoagulants per prescription. 8. Pain medication has potential to cause constipation. Increase oral fluid and fiber intake. Contact primary care provider if you have not had a bowel movement within 48 hours after discharge 9. No anti-inflammatory medication until discussed at first post operative visit, this including Motrin, Aleve, Mobic, Diclofenac. 10. Follow up in office at 2 weeks postop with Ryan Rodriguez PA-C/Beto Donato 11. Follow up with your primary care doctor 7-10 days after discharge. 12. Contact [facility] with any questions, . Procedures: Reverse right total shoulder arthroplasty Patient Condition at Discharge: Good Plan - Discharge Summary Discharge Rx Participant: No New Discharge Prescriptions: New Aspirin [Adult Low Dose Aspirin EC] 81 mg PO BID #60 tab Continue oxyBUTYnin chloride [Ditropan] 10 mg PO DAILY metFORMIN HCL [Glucophage] 1,000 mg PO BID ALPRAZolam [Xanax] 1 mg PO TID PRN PRN Reason: Anxiety Pantoprazole [Protonix] 40 mg PO QAM Albuterol Nebulized [Ventolin Nebulized] 2.5 mg INHALATION RT-QID PRN #100 nebu PRN Reason: Shortness Of Breath Or Wheezing Albuterol Inhaler [Ventolin Hfa Inhaler] 1 - 2 puff INHALATION RT-Q6H PRN #1 inhaler PRN Reason: Shortness Of Breath Acetaminophen [Tylenol Arthritis] 650 mg PO Q6H PRN PRN Reason: Pain Aspirin EC [Ecotrin Low Dose] 81 mg PO DAILY Atorvastatin [Lipitor] 20 mg PO HS FLUoxetine HCL [PROzac] 40 mg PO HS Naproxen [Naprosyn] 500 mg PO DAILY ondansetron HCL [Zofran] 4 mg PO TID PRN PRN Reason: Nausea Docusate Sodium [Dok] 100 mg PO DAILY Gabapentin [Neurontin] 100 mg PO TID Levothyroxine Sodium [Synthroid] 25 mcg PO QAM Vit No.179/Iron/Folic [ Tablet] 1 each PO DAILY Sodium Chloride 0.65% Nasal [Deep Sea (Saline)] 1 spray NASAL DAILY ARIPiprazole [Abilify] 10 mg PO BID buPROPion HCL [buPROPion HCL Xl] 150 mg PO QAM Dapagliflozin Propanediol [Farxiga] 10 mg PO DAILY Ferrous Sulfate [Feosol] 325 mg PO DAILY Fluticasone Propionate [Flonase Allergy Relief] 1 spray EA NOSTRIL DAILY Insulin Glargine [Lantus Vial] 38 unit SQ DAILY@1800 Phenazopyridine HCl [Pyridium] 200 mg PO TID No Action Losartan Potassium 50 mg PO QAM HYDROcodone/APAP 10-325MG [[place] 10-325] 1 tab PO Q6HR PRN PRN Reason: Pain Discharge Medication List metFORMIN HCL [Glucophage] 1,000 mg PO BID 09/23/14 [History] oxyBUTYnin chloride [Ditropan] 10 mg PO DAILY 09/23/14 [History] ALPRAZolam [Xanax] 1 mg PO TID PRN 02/13/17 [History] Losartan Potassium 50 mg PO QAM 02/13/17 [History] Pantoprazole [Protonix] 40 mg PO QAM 02/13/17 [History] Albuterol Inhaler [Ventolin Hfa Inhaler] 1 - 2 puff INHALATION RT-Q6H PRN #1 inhaler 02/08/18 [Rx] Albuterol Nebulized [Ventolin Nebulized] 2.5 mg INHALATION RT-QID PRN #100 nebu 02/08/18 [Rx] Acetaminophen [Tylenol Arthritis] 650 mg PO Q6H PRN 12/16/18 [History] Aspirin EC [Ecotrin Low Dose] 81 mg PO DAILY 12/16/18 [History] Atorvastatin [Lipitor] 20 mg PO HS 12/16/18 [History] FLUoxetine HCL [PROzac] 40 mg PO HS 12/16/18 [History] Naproxen [Naprosyn] 500 mg PO DAILY 12/16/18 [History] ondansetron HCL [Zofran] 4 mg PO TID PRN 12/16/18 [History] ARIPiprazole [Abilify] 10 mg PO BID 06/06/23 [History] Dapagliflozin Propanediol [Farxiga] 10 mg PO DAILY 06/06/23 [History] Docusate Sodium [Dok] 100 mg PO DAILY 06/06/23 [History] Ferrous Sulfate [Feosol] 325 mg PO DAILY 06/06/23 [History] Fluticasone Propionate [Flonase Allergy Relief] 1 spray EA NOSTRIL DAILY 06/06/23 [History] Gabapentin [Neurontin] 100 mg PO TID 06/06/23 [History] HYDROcodone/APAP 10-325MG [[place] 10-325] 1 tab PO Q6HR PRN 06/06/23 [History] Insulin Glargine [Lantus Vial] 38 unit SQ DAILY@1800 06/06/23 [History] Levothyroxine Sodium [Synthroid] 25 mcg PO QAM 06/06/23 [History] Phenazopyridine HCl [Pyridium] 200 mg PO TID 06/06/23 [History] Vit No.179/Iron/Folic [ Tablet] 1 each PO DAILY 06/06/23 [Histo ry] Sodium Chloride 0.65% Nasal [[place] (Saline)] 1 spray NASAL DAILY 06/06/23 [History] buPROPion HCL [buPROPion HCL Xl] 150 mg PO QAM 06/06/23 [History] Aspirin [Adult Low Dose Aspirin EC] 81 mg PO BID #60 tab 06/09/23 [Rx] Follow up Appointment(s)/Referral(s): Beto Dunn PAC [PHYSICIAN PLATFORM WORKER] - 2 Weeks Patient Instructions/Handouts: Shoulder Arthroplasty (DC), Shoulder Arthroplasty (GEN) Activity/Diet/Wound Care/Special Instructions: 1. Wound care and infection precautions, keep incision dry and covered while showering, no lotions, creams, moisturizers. No soaking, pools, hot tubs. Do not scrub over incision. 2. Nonweightbearing right upper extremity until follow-up. 3. Ice when necessary. Do not exceed 20 minutes per hour with ice pack. 4. Utilize sling to right upper extremity 5. Pain meds and anticoagulants per prescription. 6. Pain medication has potential to cause constipation. Increase oral fluid and fiber intake. Contact primary care provider if you have not had a bowel movement within 48 hours after discharge. 7. No anti-inflammatory medication until discussed at first post operative visit, this including Motrin, Aleve, Mobic, Diclofenac. 8. Follow up in office at 2 weeks postop with Ryan Rodriguez PA-C / Beto Dunn PA-C 9. Follow up with your primary care doctor 7-10 days after discharge. 10. Contact [facility] with any questions, . Keep incision clean, dry, intact. While showering, cover incision with Saran wrap. Keep Steri-Strips on until follow-up appointment in office in 2 weeks Discharge Disposition: HOME SELF-CARE
== END 2023-06-09 15:20 | disposition home or self-care (01) ==
LOC: OR 05:35 → 4SSUR 16:30 → OR 06-09 15:20
PROVIDERS: ATTEND Orthopaedic Surgery
DX: S42.201A Unspecified fracture of upper end of right humerus, initial encounter for closed fracture (principal); G89.18 Other acute postprocedural pain; J45.909 Unspecified asthma, uncomplicated; E11.9 Type 2 diabetes mellitus without complications; K21.9 Gastro-esophageal reflux disease without esophagitis; I10 Essential (primary) hypertension; Z90.710 Acquired absence of both cervix and uterus; Z98.51 Tubal ligation status; Z87.891 Personal history of nicotine dependence; Z83.3 Family history of diabetes mellitus; Z79.84 Long term (current) use of oral hypoglycemic drugs; Z79.51 Long term (current) use of inhaled steroids; Z79.4 Long term (current) use of insulin; Z79.890 Hormone replacement therapy; Z91.041 Radiographic dye allergy status; Z88.0 Allergy status to penicillin; Z91.040 Latex allergy status; X58.XXXA Exposure to other specified factors, initial encounter
CPT/HCPCS: 85025; 73020; 23472; 64415; J2250; J1644 ×2; J1100; J0690 ×3; J2405; S0197; J1170 ×2; J1790

== ENCOUNTER 2024-03-19 07:35 | Day surgery (SDC) | payer MEDICARE, OTHER ==
[~2024-03-19 07:35] MED LIST changes: +TETRACAINE 0.5% OPHTH (PF) DROPS 4 ML BTL OP PRN; -TRANEXAMIC 1,000 MG/100ML-NACL 1,000 MG in SALINE 1 100ML.BAG IVPB PRN
[2024-03-19] MEDS: CYCLOPENTOLATE 1% OPHTH SOLN 2 ML BTL OP PRN (08:16)
[2024-03-19] MEDS: PHENYLEPHRINE 2.5% OPHTH DRP 2ML OP PRN (08:19)
[2024-03-19 08:24] VITALS: TEMP 97.6
[2024-03-19] MEDS: IV FLUID CONTINUATION 1,000 ML IV ONE (08:30)
[2024-03-19] MEDS: LACTATED RINGERS 1,000 ML IV SCH (08:40)
[2024-03-19 08:42] LABS: Glucose,Whole Blood 175 mg/dL (70-110)
[2024-03-19] MEDS ORDERED: MIDAZOLAM 2 MG/2 ML VIAL ONE (09:03)
[2024-03-19] MEDS: HYALURONATE SODIUM INTRAOCULAR 1 EACH SYRINGE (12MG/ML) INTRAOCULA ONE (09:21)
[2024-03-19] MEDS: BALANCED SALT IRRIG SOLN COMB2 15 ML IRRIG.SOLN INTRAOCULA ONE (09:21)
[2024-03-19] MEDS: LIDOCAINE 1% (PF) 10MG/ML VIAL MISCELLANE ONE (09:22)
[2024-03-19] MEDS: TIMOLOL 0.5% OPHTH DROPS 5 ML BTL OP PRN (09:24)
[2024-03-19] MEDS: MOXIFLOXACIN HCL 0.5% DROPS 3 ML BTL OP PRN (09:24)
[2024-03-19] MEDS: EPINEPHrine (PF) 0.3 ML in BALANCED SALT IRRIG SOLN COMB2 500 ML IRRIGATION ONE (09:25)
--- NOTE | 2024-03-19 09:34 | P.OP ---
Date of Procedure: 03/19/24 Preoperative Diagnosis: NS & CS Postoperative Diagnosis: same Procedure(s) Performed: PIOL, OD Implants: MX60E 18.50 Anesthesia: MAC Surgeon: Alvaro Thibodeaux Pathology: none sent Condition: stable Disposition: same day Indications for Procedure: blurry vision Operative Findings: no complications
[2024-03-19 09:42] VITALS: RESP 16
[2024-03-19 09:58] VITALS: BP 116/60; PULSE 79
--- NOTE | 2024-03-19 19:41 | OP ---
OPERATIVE REPORT DATE OF SERVICE : 03/19/2024 PREOPERATIVE DIAGNOSIS: Nuclear sclerosis, cortical sclerosis. POSTOPERATIVE DIAGNOSIS: Nuclear sclerosis, cortical sclerosis. OPERATION: Phacoemulsification of cataract and interocular lens implant of the right eye. ESTIMATED BLOOD LOSS: Zero. SPECIMEN TAKEN: None. NARRATIVE: After obtaining the appropriate consent, the patient was brought to the operating room where the patient was placed under cardiac monitoring and prepped and draped in the usual sterile manner. At the 11 o'clock position, a 15-degree super sharp blade was used to create a paracentesis followed by instillation of 1% Xylocaine MPF 50:50 mix with BSS into the anterior chamber. This was followed by Amvisc viscoelastic to stabilize the anterior chamber. At the 9 o'clock position a self-sealing corneal flap incision was created using 2.8 mm jermain keratome. A cystotome was used to initiate a continuous tear capsulorrhexis which was completed with the Utrata forceps. A Binkhorst cannula was used to hydrodissect the lens nucleus followed by hydrodelineation. Phacoemulsification of the lens was performed utilizing phacochop in 9.44 seconds at 9.6% power. The remaining cortical material was removed using the irrigation aspiration mode followed by additional 1% Xylocaine MPF into the anterior chamber followed by viscoelastic to stabilize the capsular bag. A [employer]ch [employer] Lomb MX60E 18.5 diopters posterior chamber lens was placed into the capsular bag without difficulty. The remaining viscoelastic material was removed from the anterior chamber with the irrigation/aspiration. Balanced salt solution was used to normalize the intraocular pressure. The incision was checked for watertight integrity. The patient then received 2 drops of 0.5% timolol followed by 2 drops Vigamox, was lightly patched and shielded in the usual manner. There were no complications from the procedure. The patient tolerated the procedure well and was returned to recovery in good condition. MMODL / IJN: [id number] /
== END 2024-03-19 10:11 | disposition home or self-care (01) ==
LOC: OR 07:35
PROVIDERS: ATTEND Ophthalmology
DX: E11.36 Type 2 diabetes mellitus with diabetic cataract (principal); H25.811 Combined forms of age-related cataract, right eye; H25.12 Age-related nuclear cataract, left eye; H52.13 Myopia, bilateral; H52.223 Regular astigmatism, bilateral; M81.0 Age-related osteoporosis without current pathological fracture; I10 Essential (primary) hypertension; E07.9 Disorder of thyroid, unspecified; F32.A Depression, unspecified; F41.9 Anxiety disorder, unspecified; E78.00 Pure hypercholesterolemia, unspecified; J44.9 Chronic obstructive pulmonary disease, unspecified; G47.33 Obstructive sleep apnea (adult) (pediatric); M19.90 Unspecified osteoarthritis, unspecified site; M06.9 Rheumatoid arthritis, unspecified; E11.51 Type 2 diabetes mellitus with diabetic peripheral angiopathy without gangrene; K58.9 Irritable bowel syndrome, unspecified; Z79.899 Other long term (current) drug therapy; Z79.84 Long term (current) use of oral hypoglycemic drugs; Z88.0 Allergy status to penicillin; Z88.5 Allergy status to narcotic agent; Z90.710 Acquired absence of both cervix and uterus; Z91.040 Latex allergy status; Z96.611 Presence of right artificial shoulder joint; Z98.890 Other specified postprocedural states; Z91.041 Radiographic dye allergy status
CPT/HCPCS: 66984; C1780; J2250; J0171; J2003

== ENCOUNTER 2024-03-26 06:39 | Day surgery (SDC) | payer MEDICARE, OTHER ==
[2024-03-25 10:47] VITALS: BMI 43.9
[2024-03-26] MEDS ORDERED: fentaNYL (PF) 50 MCG/ML 2 ML AMP ONE (07:24)
[2024-03-26] MEDS ORDERED: MIDAZOLAM 2 MG/2 ML VIAL ONE (07:24)
[2024-03-26] MEDS: CYCLOPENTOLATE 1% OPHTH SOLN 2 ML BTL OP PRN (07:48)
[2024-03-26] MEDS: PHENYLEPHRINE 2.5% OPHTH DRP 2ML OP PRN (07:51)
[2024-03-26 07:54] LABS: Glucose,Whole Blood 147 mg/dL (70-110)
[2024-03-26] MEDS: IV FLUID CONTINUATION 1,000 ML IV ONE (07:55)
[2024-03-26 07:57] VITALS: TEMP 97.3
[2024-03-26] MEDS: LACTATED RINGERS 1,000 ML IV SCH (08:00)
[2024-03-26] MEDS: EPINEPHrine (PF) 0.3 ML in BALANCED SALT IRRIG SOLN COMB2 500 ML IRRIGATION ONE (08:36)
[2024-03-26] MEDS: MOXIFLOXACIN HCL 0.5% DROPS 3 ML BTL OP PRN (08:40)
[2024-03-26] MEDS: BALANCED SALT IRRIG SOLN COMB2 15 ML IRRIG.SOLN INTRAOCULA ONE (08:40)
[2024-03-26] MEDS: LIDOCAINE 1% (PF) 10MG/ML VIAL MISCELLANE ONE (08:40)
[2024-03-26] MEDS: TIMOLOL 0.5% OPHTH DROPS 5 ML BTL OP PRN (08:40)
[2024-03-26] MEDS: HYALURONATE SODIUM INTRAOCULAR 1 EACH SYRINGE (12MG/ML) INTRAOCULA ONE (08:40)
--- NOTE | 2024-03-26 08:56 | P.OP ---
Date of Procedure: 03/26/24 Preoperative Diagnosis: NS Postoperative Diagnosis: same Procedure(s) Performed: PIOL, OS Implants: MX60E 18.00 Anesthesia: MAC Surgeon: Alvaro Thibodeaux Pathology: none sent Condition: stable Disposition: same day Indications for Procedure: blurry vision Operative Findings: no complications
[2024-03-26 09:24] VITALS: BP 121/61; PULSE 73; RESP 20
--- NOTE | 2024-03-26 18:55 | OP ---
OPERATIVE REPORT DATE OF SERVICE : 03/26/2024 PREOPERATIVE DIAGNOSIS: Nuclear sclerosis, left eye. POSTOPERATIVE DIAGNOSIS: Nuclear sclerosis, left eye. OPERATION: Phacoemulsification of cataract and interocular lens implant, left eye. ESTIMATED BLOOD LOSS: Zero. SPECIMEN TAKEN: None. NARRATIVE: After obtaining the appropriate consent, the patient was brought to the operating room where the patient was placed under cardiac monitoring and prepped and draped in the usual sterile manner. At the 5 o'clock position, a 15-degree super sharp blade was used to create a paracentesis followed by instillation of 1% Xylocaine MPF 50:50 mix with BSS into the anterior chamber. This was followed by Amvisc viscoelastic to stabilize the anterior chamber. At the 3 o'clock position a self-sealing corneal flap incision was created using 2.8 mm jermain keratome. A cystotome was used to initiate a continuous tear capsulorrhexis which was completed with the Utrata forceps. A Binkhorst cannula was used to hydrodissect the lens nucleus followed by hydrodelineation. Phacoemulsification of the lens was performed utilizing phacochop in 8.91 seconds at 13.7 % power. The remaining cortical material was removed using the irrigation aspiration mode followed by additional 1% Xylocaine MPF into the anterior chamber followed by viscoelastic to stabilize the capsular bag. A [employer]ch [employer] Lomb MX60E 18.0 diopters posterior chamber lens was placed into the capsular bag without difficulty. The remaining viscoelastic material was removed from the anterior chamber with the irrigation/aspiration. Balanced salt solution was used to normalize the intraocular pressure. The incision was checked for watertight integrity. The patient then received 2 drops of 0.5% timolol followed by 2 drops Vigamox, was lightly patched and shielded in the usual manner. There were no complications from the procedure. The patient tolerated the procedure well and was returned to recovery in good condition. MMODL / IJN: [id number] /
== END 2024-03-26 09:35 | disposition home or self-care (01) ==
LOC: OR 06:39
PROVIDERS: ATTEND Ophthalmology
DX: H25.12 Age-related nuclear cataract, left eye (principal); I10 Essential (primary) hypertension; J44.89 Other specified chronic obstructive pulmonary disease; G47.33 Obstructive sleep apnea (adult) (pediatric); G25.81 Restless legs syndrome; F41.9 Anxiety disorder, unspecified; F32.A Depression, unspecified; F40.240 Claustrophobia; K58.9 Irritable bowel syndrome, unspecified; Z79.82 Long term (current) use of aspirin; Z79.899 Other long term (current) drug therapy; Z79.51 Long term (current) use of inhaled steroids; Z99.89 Dependence on other enabling machines and devices; Z91.040 Latex allergy status; Z88.0 Allergy status to penicillin; Z88.5 Allergy status to narcotic agent; Z91.041 Radiographic dye allergy status
CPT/HCPCS: 66984; C1780; J2250; J0171; J3010; J2003